=== PATIENT | male | born 1940 | race African-American/Black ===

== ENCOUNTER 2018-09-10 21:05 | Inpatient (IN) | payer OTHER ==
[~2018-09-10] VITALS: Ht 188 cm; Wt 61.3 kg
[2018-09-10] MEDS ORDERED: COREG6.25 MG PO (22:27)
[2018-09-10] MEDS ORDERED: ZANAFLEX2 MG PO (22:30)
[2018-09-10] MEDS ORDERED: ZANAFLEX4 MG PO (22:31)
[2018-09-10] MEDS ORDERED: KLOR-CON 1010 MEQ PO (22:34)
[2018-09-10] MEDS ORDERED: CELEBREX 200 M200 M1 PO (22:37)
[2018-09-10] MEDS ORDERED: NAPROSYN500 MG PO (22:39)
[2018-09-10] MEDS ORDERED: FINASTERIDE5 MG PO (22:40)
[2018-09-10] MEDS ORDERED: FLOMAX0.4 MG PO (22:41)
[2018-09-10] MEDS ORDERED: AMLODIPINE BESY10 MG PO (22:43)
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
[2018-09-11 02:00] VITALS: BP 153/89
--- NOTE | 2018-09-11 03:02 | NUR ---
PT CALLED OUT FOR HELP AT 0220. HE WAS SITTING ON SIDE OF HIS BED AND STATES HE HAD VOIDED URINE AND IT HAD GOTTEN ON HIS UNDERPAD AND SHEETS. RESIDENT STATES HE COULDN'T GET TO URINAL THAT WAS BESIDE HIS BED IN TIME. PATIENT STOOD UP WHEN CHANGING SHEETS AND IS VERY UNSTEADY ON HIS FEET AND NOT BALANCED. HE GETS AROUND BY GRIPPING FURNITURE AND PAZ. WHEN ASKED IF HE HAD PAIN HE STATED HIS LOWER LEFT BACK HURT AND WAS A 10/10 ON THE PAIN SCALE. HE RESIDENT WAS CLEANED UP AND NEW SHEETS PUT ON BED. RESIDENT ASKED FOR HIS PHONE TO CALL HIS SON. I LET HIM KNOW THAT IT WAS WITH SECURITY IN THE SAFE. LET HIM KNOW WE HAVE PHONES AVAILABLE FOR HIM TO MAKE A CALL BUT THAT IT IS 0233 IN THE MORNING AND WOULD HAVE TO WAIT TILL A MORE REASONABLE TIME. HE STATES THAT IS FINE AND AGAIN ASKED IF HIS SON KNOWS THAT HE IS HERE. LET HIM KNOW AGAIN THAT [facility] HAD LET HIS SON KNOW AND HE CAN CALL LATER IN DAY. HE WAS OK WITH THIS. PATIENT STATES "I'M HUNGRY! IS THERE ANY FOOD AROUND HERE?" HE STATES IT HAD BEEN SEVERAL HOURS SINCE HE LAST ATE. GIULIANA CERVANTES PROVIDED A SANDWICH, CHIPS AND DRINK FOR PATIENT. PATIENT COOPERATIVE. PATIENT ATE AND PAIN MED OF CELEBREX GIVEN TO PATIENT ORDERED FOR PRN. PATIENT ATE 100% OF FOOD.
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
--- NOTE | 2018-09-11 04:25 | NUR ---
Patient has been restless, mumbling, defensive with nursing staff. Patient provided Seroquel 50mg PO. Patient now reports back pain 5/10 and that the pain has improved. Patient asked to notify nurse if pain worsens to receive available Tylenol 3 PRN. Patient also informed that nurse will check on him to monitor pain. Patient pacing the hill and room at times. Patient is grateful to receive medication and reports that he doesn't mean to be rude or disrespectful to nursing staff. Laying in bed at this time.
[2018-09-11 08:00] VITALS: BP 141/95
--- NOTE | 2018-09-11 11:29 | NUR ---
SW and pt met at length. 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 He reports that his son is the Staff Air Defense Officer of a [employer] of [employer] on . and believes he might be angry at him but expects him to help, but is adament about making his own decisions. This has not been verified and it is unclear if this pt is very confused. Pt reports that he has a truck, clothes and paperwork that needs to be put into storage and he thinks he can move into a senior housing complex called " [facility]". He states he is willing to move, and struggles with back pain and arthritis. Pt is pleasant and gets frustrated when he feels disrespected or ignored. Pt was easily redirected by this SW.
[2018-09-11 12:24] VITALS: BP 153/89
--- NOTE | 2018-09-11 12:33 | NUR ---
ASSUMED CARE AT 0700 THIS MORNING. PT. LYING IN BED. WHEN TALKING TO HIM, HE IS IRRITABLE, ANGRY. HE CONTINUALLY C/O LOWER BACK PAIN. CELECOXIB GIVEN AT 0900, TYLENOL #3 GIVEN AT 1126. HE WAS OFFERED PLAIN TYLENOL, BUT HE REFUSED IT STATING HE WANTS TYLENOL #3. WHEN HE IS UP AND AMBULATING, HE USES A WALKER. HE IS AMBULATING WITHOUT PROBLEMS WITH ONLY HIS WALKER, BUT WILL C/O THE WHOLE WAY: "I CAN'T WALK WELL YOU KNOW". WANTED LUNCH SERVED IN HIS ROOM, BUT STAFF DENIED THIS REQUEST. HE WAS UPSET WITH THIS. HE SPENDS VERY LITTLE TIME ON THE UNIT. HE C/O HE NEED ADHESIVE ON HIS DENTURES. WAS UPSET THAT THIS RN WAS NOT DOING IT THE WAY HE WANTED IT. HAS NOT OFFERED TO THROW THE WALKER OR THROW ANYTHING AT ANYBODY UP TO THIS TIME.
--- NOTE | 2018-09-11 16:19 | NUR ---
MARIANN spoke with pt's son Ward Wright [phone]. He was able to confirm his father's social HX. He reported a 3 month stay at [facility] about 8 years ago and he was recomended LTC at that point but he refused. Pt was later discharged to his current home. This lasted for 5 years and the last 3 years he has " given everyone fits". Pt's son reports that his dad cannot make decision for safety or manage his ADL's . He has refused to let his son be his DPOA. Pt is currently pending a possible eviction from his apartment on [address] [address] on September 30. There are no further housing plans. Pt's son feels like his father will reject any d/c plans that include LTC, but is prepared to help as needed. MARIANN provided him with the weekday MARIANN name and phone number.
[2018-09-11 19:35] VITALS: BP 121/83
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
--- NOTE | 2018-09-12 00:35 | NUR ---
Order placed by Dr. Singh for a UA to be completed. Due to agitation, UA was not able to be collected. Patient had a UA completed at [facility] on the [address] on 09/10/18. Results are in the chart and UA negative for infection. CYNDEE Cabello notified. Order obtained to d/c UA order.
--- NOTE | 2018-09-12 01:34 | NUR ---
Patient woke up and approached the nurses station. Patient pleasant and cooperative. Patient asked if he could have his medication now and that he will take whatever the doctor thinks he needs. Prescribed medications reviewed. Due to refusal of HS Haldol, patient provided PRN Haldol dose. Patient assessed for pain. Patient reported pain rated 7/10 to his back. Patient also provided Tylenol #3. Patient apologetic for behaviors earlier in the night. Patient stated that he never acts like that and he is sorry. Patient reports that he is having trouble sleeping and would like soap and towels to take a shower. Patient provided with supplies and is showering at this time.
--- NOTE | 2018-09-12 04:22 | NUR ---
Patient has been restless since he has been awake, approximately 0115. Patient has become more agitated, irritable, intrusive, demanding over the last hour. Patient provided snacks and fluids. Patient offered to sit in living room and watch TV. When he becomes upset, he starts to briskly walk toward staff, occasionally leaving walker, unsteady gait and balance. Patient is high fall risk. With him being agitated, it is difficult to re-direct patient to slow down and grab his walker. Patient reported pain and requested "anything" to assist with pain management. Patient offered PRN Naproxen or PRN Tylenol. Educated patient that he had already received his PRN Tylenol #3. Patient requested to take PRN Naproxen, then came to the nurses station to say he wanted Tylenol instead. Tylenol was taken to patient. Patient then refused to take Tylenol. Patient sitting on his bed. No s/s of distress observed. Once patient refused the Tylenol, he became beligerent. He started calling nurse "nothing but a white woman bitch". He continued to yell and curse. Slamming his walker into the ground. No act of physical aggression at the time. Patient kept coming to the nurses station, yelling at nurse and disrupting the milieu, waking other patients. Security notified. Security spoke with patient. Patient was unable to calm down. Nurse administered Geodon 10mg IM in the right deltoid. Patient walked to his room with application security engineer. Patient cussing racial and inappropriate comments on the way. Patient sitting on his bed at this time with lights dimmed.
--- NOTE | 2018-09-12 06:19 | NUR ---
Patient has been resting in bed since approximately 0430. Lab arrived to collect blood from patient approximately 0530. Patient originally declined to have blood drawn but then allowed to be stuck once. Lab was not able to obtain blood and requested to attempt one more time. Patient declined. He stated that he was tired and wanted to go to sleep. Patient stated that he is tired of being arrested, in hand cuffs, tied down and people sticking needles in him. Patient has not been in any type of restraint since admission to this unit. Once lab left unit, patient has been resting quietly in bed. Patient has slept a total of 3.6 hours this shift.
--- NOTE | 2018-09-12 08:45 | NUR ---
ASSUMED CARE AT 0700 THIS MORNING. PT. B/P 172/123 LYING AND 168/120 SITTING. PT. INFORMED OF HIGH B/P BUT WOULD NOT TAKE ANY B/P MEDICATIONS. HE WOULD ONLY TAKE TYLENOL #3 AND CELEBREX (HE TOOK ONE PILL ONLY). HE REMAINS ANGRY, UPSET. HE STATED HE IS WAITING UNTIL THE DR. ARRIVES BEFORE HE WILL TAKE ANY MEDICATIONS. HE CONTINUES TO INSIST THAT THIS RN ORDERED HIS MEDICATIONS AND THAT THE MEDS WERE UNNECESSARY SINCE I OERDERED THEM. HE CONTINUES TO BE SECLUSIVE IN HIS ROOM, EXCEPT FOR MEALS. HE CAME OUT FOR GROUP AT STAFF INSISTANCE. HE IS EATING WELL.
[2018-09-12 10:40] VITALS: BP 141/95
[2018-09-12 13:13] LABS: HEMATOCRIT 40.6 % (42.0-52.0); HEMOGLOBIN 13.4 gm/dL (14.0-18.0); MCH 29.1 pg (26.0-34.0); MCV 88.1 fL (80.0-100.0); RBC 4.61 mil/uL (4.50-6.00); RDW 14.3 % (10.5-14.5); WBC 6.5 thou/uL (4.0-11.0)
[2018-09-12 13:28] LABS: CALCIUM 10.1 mg/dL (8.5-10.1); POTASSIUM 3.9 mmol/L (3.5-5.1)
--- NOTE | 2018-09-12 14:21 | NUR ---
SW verified that pt has approached [facility] [phone]. Sw called but they are closed on Sundays. SW left an email for the weekeday SW with this information per pt request.
--- NOTE | 2018-09-12 16:14 | NUR ---
SW witnessed this pt recieve his IM and struggle with staff and security. When it seemed therapeutic this life insurance underwriter entered his room and asked permission to sit with him. He said " of course sweetheart". At this point there was 1 officer in his room. This life insurance underwriter provided empathy, redirection and validation. This life insurance underwriter offered him water, which he would only take a new cup of water from the bathroom that was done by this life insurance underwriter. Within minutes he described the effects of the shot, and could hear himself slurring. This life insurance underwriter educated him that the IM would help him take a nap, all the while he was easily redirected , quiet spoken and gentle. this life insurance underwriter encouraged him to lay down and let himself be tucked in. He accepted this and said yes when this life insurance underwriter offered to turn off the light and keep the door ajar. This life insurance underwriter left his room with security.
[2018-09-12 17:00] VITALS: BP 139/93
--- NOTE | 2018-09-12 21:52 | NUR ---
PATIENT REQUESTED PRN PAIN MEDICATION R/T BACK PAIN AT APPROXIMATELLY 2145 PRN TYLENOL 3 GIVEN ORDERED.
--- NOTE | 2018-09-12 22:18 | NUR ---
NURSES NOTES - PATIENT IS ALERT AND ORIENTED X3, HE HAS BEEN COOPERATIVE WITH THIS NURSE FOLLOW THIS NURSES DIRECTIONS AND ENCOURAGEMENT. HE APPEARS TO BE PREOCCUPIED WITH DISCHARGE AND HAS ASKED SEVERAL TIMES WHO ARRANGES HIS TRANSPORTATION AND WHO DECIDES WHEN HE IS DISCHARGING. THIS NURSE ENCOURAGED PATIENT TO ASK SOCIAL WORK STAFF TOMORROW AFTER TX TEAM AND MD. HE WAS UNDERSTANDING. HE ALSO APPEARS PREOCCUPIED WITH WHERE HIS BELONGINGS ARE AND IN THEY ARE SAFE, THIS NURSE REASSURED PATIENT THEY WERE SAFE AND LOCKED UP. HE HAS HAD NEGATIVE INTERACTIONS WITH ONE CERTAIN PEER THAT REQUIRED REDIRECTION FROM STAFF. STAFF INTERVENES PRN. HE WAS MEDICATION COMPLIANT THIS EVENING, BUT QUESTIONS HALDOL, THIS NURSE ALSO EDUCATED PATIENT R/T IMPORTANCE OF MED REGIMEN AND ADHERING TO IT. HE AGREED HE WOULD WHILE IN THE HOSPITAL. HE AMBULATES WITH WALKER, BUT THIS NURSE HAS WITNESSED HIM AMBULATING WITH NO ASSISTIVE DEVICE. HE DOES NOT APPEAR TO BE IN MEDICAL DISTRESS, HE DID C/O BACK PAIN AT 8/10 PRN TYLENOL 3 GIVEN WITH NO PROBLEMS. WILL CONTINUE TO MONITOR AND MAINTAIN ALL PRECAUTIONS FOR SAFETY.
--- NOTE | 2018-09-13 06:28 | NUR ---
PATIENT SLEPT FOR 2 HOURS PER MEDIA TRAFFIC MANAGER
[2018-09-13 07:55] VITALS: BP 154/88
--- NOTE | 2018-09-13 10:32 | NUR ---
Assess due to low BMI 17.3. Admit to [facility] with schizophrenia. On regular diet and states "I'll eat whatevery you bring." Very polite at time of visit. Slender gentleman but does not appear malnourished. Low nutrition risk
--- NOTE | 2018-09-13 10:53 | NUR ---
MARIANN left a voicemail for Ms. Stephens from [facility]. MARIANN provided contact information, and requested a call back.
--- NOTE | 2018-09-13 11:31 | NUR ---
PATIENT UP IN HIS ROOM AT 0715. PLEASANT TO THIS NURSE WHEN FIRST INTORDUCING SELF TO HIM ON PATIENT SHIFT ROUNDS. HOWEVER, BECOME RUDE AND UNCOOPERATIVE N NURSE ATTEMPTED TO PASS A.M. MEDSS, REFUSED TO TAKE. PLAN OF CARE DURING TREATMENT DISCUSSED. POSSIBILITY OF PATIENT BEING DISCHARGED TOMORROW, RELATED TO PATIENT'S NONCOMPLIANCE WITH POC.
--- NOTE | 2018-09-13 12:40 | NUR ---
David was speaking with the BITUMINOUS PAVING MACHINE OPERATOR, I heard him tell her that 'he is two people, one a male, and one a female. He was asking for his personal belonings. I referred him to his nurse. He thinks he is discharging today. When the nurse informed David, that he was not discharging. He started to cuss and hit his fist into his hand.
--- NOTE | 2018-09-13 16:00 | NUR ---
PATIENT BECAME SEVERELY AGITATED AND COMBATIVE WITH STAFF, WAS GIVEN HIS 1400 THORAZINE. HOWEVER, IT WAS NECESSARY TO ADMINISTER THORAZINE IM 25 MG AT 1430, ASSISTANCE OF FOUR STAFF. PATIENT IS AT THIS TIME, LYING QUIETLY IN BED IN SIDEWAYS IN THE BED. APPEARS TO BE SLEEPING.
--- NOTE | 2018-09-13 16:28 | NUR ---
PATIENT CONTINUED TO TALK TO NURSES, AND PHYSICIAN, ABOUT HIS DESIRE TO BE DISCHARGED TODAY. INSISTED TO STAFF AND DR. HYDE THAT HE WAS TOLD THAT HE WOULD BE DISCHARGED TODAY. THIS NURSE HAD PREVIOUS CONVERSATIONS WITH PATIENT TO THAT EFFECT; HOWEVER, PATIENT UNWILLING TO ACCEPT THAT HE WAS NOT GOING HOME TODAY. PATIENT DEMONSTRATED EXTREME VERBAL AGGREESSION WITH DR. HYDE; WAS TOLD THAT HE WOULD BE STAYING A COUPLE OF DAYS FOR MEDICATION ADJUSTMENT.
--- NOTE | 2018-09-13 16:51 | NUR ---
MARY left a voicemail to Ms. Stephens from [facility]. MARY provided contact information. Mary attempted twice to return Ms. Stephens. MARY will follow-up on tomorrow.
[2018-09-13 20:00] VITALS: BP 153/97
--- NOTE | 2018-09-13 23:30 | NUR ---
PT AMBULATING STEADY WITH WALKER. PT VERBALIZED FRUSTRATION ABOUT WANTING TO GO HOME. PT REFUSED HS HALDOL STATING IT MAKES HIM DIZZY. PT VERBALIZED BEING UPSET THAT HIS ARM BAND HAS AN F FOR FEMALE BUT REFUSED TO HAVE CHANGED. PT VERBALIZED ALSO UPSET THAT HIS DOOR MUST REMAIN UNLOCKED FOR ROUNDS. PT AT 2330 CAME TO DAY ROOM TO STATING HE CAN NOT SLEEP AND IS LAUGHING AT TV PROGRAM AND TALKING WTIH AIDES. NO C/O PAIN.
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
--- NOTE | 2018-09-14 02:22 | NUR ---
Pt awakened at this time ambulated in hill and returned to his room.
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
--- NOTE | 2018-09-14 07:30 | NUR ---
PT IS IN DINNING ROOM. PT SHOWING NURSE THE YELLOW PAPER WITH BELONGINGS ON THEM. PT WANTING TO GO HOME TODAY. SON HAS NOT RETURNED PHONE CALL PER . PT ALLOWED NURSE TO TAKE ASSESSMENT. PT USING WALKER TO AMBULATE.
[2018-09-14 07:49] VITALS: BP 148/109
--- NOTE | 2018-09-14 10:08 | NUR ---
ADM TYLENOL 650MG 2 TABS PO FOR PAIN TO BACK OF 10 ON 1-10 SCALE. PT REFUSED IBUPROPHEN. PT TOOK CELEBREX FROM HOME MEDS. PT REFUSED HEART MEDICATION STATED HE DOENS'T HAVE A HEART ISSUE AND TO CHECK THE OTHER HOSPITAL RECORDS. PT UP AGGITATED WANTING TO SEE AND HAVE HIS CELL PHONE. PT STATED THAT WE ARE DOING HIM WRONT. THIS MEDICAL POLICY SPECIALIST GAVE PT WATER FROM [employer] AND THERE WAS BUBBLES IN CUP, PT POURED OUT WATER AND GOT FROM TAP INSTEAD.
--- NOTE | 2018-09-14 12:06 | NUR ---
PT FINISHED EATING. PT STILL WANTING TO GO HOME AND TALK TO
--- NOTE | 2018-09-14 13:36 | NUR ---
PT LEFT UNIT AMA. AUTO PARTS DELIVERY DRIVER WAS HERE TO TALK TO HIM PRIOR TO LEAVING ABOUT GOING BACK TO HIS APT. PT RECIEVED HOME MEDS FROM PHARMACY AND BAG FROM SECURITY.
--- NOTE | 2018-09-14 13:37 | NUR ---
MARIANN met with the pt concerning him going AMA. SW explained the risk of going AMA that coulf affect his medical, and mental health. SW mention that when pt go AMA doctors refuse to administer prescription, which could have negative results, and side effects. Pt read the AMA document. SW asked if he had any questions or concerns. Pt mention he will be alright, and if he has a medical problem, he will see another doctor. MARIANN, and FELICIA Pagan witness pt signature. MARIANN will provide a cab voucher to transport pt to his final destination.
[2018-09-14 14:00] VITALS: BP 148/109
--- NOTE | 2018-09-14 14:01 | NUR ---
Patient Name: KATYA SHAW Admission Date: 09/10/18 DISCHARGE PLAN: Pt will be d/c home. Care Assessment: Pt was assessed by Dr. Wasserman due to his psychosis. Level II Assessment: None Transportation: Pt will be transported by [employer]. Special Instructions/Notes: Pt will d/c AMA, and live in his apartment. SW explained the risk involved concerning AMA, and health. DISCHARGE TO FACILITY: Home Facility: Phone: Fax: Address: [address] [place] [id number] Contact Name: Phone: PCP: LILIA Psychiatrist: [facility]
--- NOTE | 2018-09-14 14:12 | NUR ---
SW called in left a voicemail for the pt son. SW mention that pt has went AMA. SW provided contact informatio, and asked if he would return call if he had any questions or concerns.
--- NOTE | 2018-09-16 11:58 | D ---
[facility] [place] [address] DISCHARGE SUMMARY Name: KATYA SHAW Room #: 528B-B DIS IN M.R.#: [id number] Admission: 09/10/18 ������������������ Attend Phys: Michael Wasserman DO Discharge: 09/14/18 ������������������ Date of : 40 Report #: [id number] THIS REPORT FOR: //name// CC: Michael Wasserman FAM physician/PCP DATE OF SERVICE: 09/14/2018 ATTENDING PHYSICIAN: Michael Wasserman DO FOREST ECOLOGY PROFESSOR AT THE TIME OF DISCHARGE: Erik Singh MD. Please note, this is a discharge against medical advice. DISCHARGE DIET: Regular. ACTIVITY LEVEL: As tolerated. DISCHARGE MEDICATIONS: Mainly continuation of medications prior to admission. Coreg 6.25 mg p.o. q. 12 hours Naproxen 500 mg p.o. b.i.d., finasteride 5 mg p.o. daily for BPH, amlodipine 10 mg p.o. daily for hypertension. He is advised not to take tizanidine and potassium chloride. The patient was urged to get an intake at a [facility] such [facility] and establish primary care due to his AMA discharge. Obviously appointments were not able to be setup. LABORATORY DATA THIS ADMISSION: CBC: H and H 13.4 and 40.6, white count 6.5, platelets 268. Electrolytes within normal limits except anion gap 6, BUN 27, glucose 107. No imaging this admission. REASON FOR ADMISSION: As follows: A 78-year-old black male, brought in by [employer] officers due to calling them making bizarre complaints, appearing paranoid. HOSPITAL COURSE: The patient was admitted to the Geriatric Psych Unit. He was started on Haldol 5 mg p.o. daily over the weekend, which he refused. I increase it to 5 mg b.i.d. yesterday, which he refused. The patient did submit written request for discharge against medical advice yesterday. Today, he is still is noncompliant with antipsychotic medication. I will like to go ahead and discharge him against medical advice. Ms. Gutierrez from [facility] presented on the unit to see to the patient's departure plans. The patient may well have mild dementia. He was quite psychotic, score of 13/30, but that SLUMS score would be expected to improve with appropriate treatment of his decompensated psychosis which patient is not permitting [address] [address] DISCHARGE SUMMARY Name: KATYA SHAW Room #: 528B-B DIS IN M.R.#: [id number] Admission: 09/10/18 ������������������ Attend Phys: Michael Wasserman, Discharge: 09/14/18 ������������������ Date of : 40 Report #: [id number] medicationr efusal and desire to return home and "then come back". PHYSICAL EXAMINATION: VITAL SIGNS: On day of discharge is as follows: Temperature 37.2, pulse 87, respirations 16, BP 148/109. The patient is aware he has uncontrolled hypertension. MUSCULOSKELETAL: Normal gait and station with the exception of using a walker intermittently. MENTAL STATUS EXAMINATION: This is a well-developed, black male, but disheveled-appearing nearly stated age. Attention limited. Concentration limited. Speech increased volume rate. Thought process is linear and goal directed. Thought content, discharged, coming back after he took care of his affairs. Some psychomotor agitation, no psychomotor retardation. Denied auditory, visual, or tactile hallucinations. Denies suicidal intent or plan. Denied hopelessness or helplessness. Denied homicidal intent or plan. Memory formally tested with impairment in recent recall. Insight impaired. Judgment limited. Fund of knowledge below average. Prognosis for this patient is guarded to poor due to leaving Against Medical Advice, likely having a major neurocognitive disorder, poor social support. I did leave messages for his son, Ward and office of Dr. Suarez, which were not returned at the time of this dictation. ��������������������������������������������� <ELECTRONICALLY SIGNED> ���������������������������������������� By: Michael Wasserman DO ��������������������������������������������� 09/16/18 1158 [id number] Michael Wasserman DO /nt
== END 2018-09-14 14:33 | disposition left against medical advice (07) | DRG 885 ==
LOC: SBH → EDSEX 21:35 → SBH 09-14 14:33
PROVIDERS: Internal Medicine; ADMIT Psychiatry & Neurology Psychiatry
DX: F20.9 Schizophrenia, unspecified (principal); I10 Essential (primary) hypertension; M06.9 Rheumatoid arthritis, unspecified; N40.0 Benign prostatic hyperplasia without lower urinary tract symptoms; G20 Parkinson's disease; E78.5 Hyperlipidemia, unspecified; Z53.21 Procedure and treatment not carried out due to patient leaving prior to being seen by health care provider; Z79.899 Other long term (current) drug therapy; Z88.0 Allergy status to penicillin
CPT/HCPCS: 10880

== ENCOUNTER 2018-10-25 09:51 | Inpatient (IN) | payer OTHER ==
[~2018-10-25] VITALS: Ht 185.4 cm; Wt 69.1 kg
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
[2018-10-25 09:51] VITALS: BP 166/106
[~2018-10-25 09:51] MED LIST: AMLODIPINE BESY10 MG PO; CELEBREX 200 M200 M1 PO; COREG6.25 MG PO; FINASTERIDE5 MG PO; FLOMAX0.4 MG PO; KLOR-CON 1010 MEQ PO; NAPROSYN500 MG PO; ZANAFLEX2 MG PO; ZANAFLEX4 MG PO
[2018-10-25 11:17] LABS: ABSOLUTE NEUTROPHILS 11.9 thou/uL (1.4-8.2); BASOPHILS 0.2 % (0.0-2.0); HEMATOCRIT 37.1 % (42.0-52.0); LYMPHOCYTES 4.9 % (24.0-44.0); MCH 28.8 pg (26.0-34.0); MCHC 32.4 g/dL (28.0-37.0); MCV 88.7 fL (80.0-100.0); MONOCYTES 5.2 % (1.0-8.0); PLATELET COUNT 210 thou/uL (150-400); POLYS 88.7 % (36.0-66.0); RBC 4.18 mil/uL (4.50-6.00); RDW 13.8 % (10.5-14.5); WBC 13.4 thou/uL (4.0-11.0)
[2018-10-25 11:41] LABS: ALBUMIN 3.6 g/dL (3.4-5.0); ANION GAP 8 mmol/L (7-16); BUN 26 mg/dL (7-18); CALCIUM 9.4 mg/dL (8.5-10.1); CHLORIDE 105 mmol/L (98-107); CO2 29 mmol/L (21-32); CREATININE 0.9 mg/dL (0.7-1.3); GLUCOSE 120 mg/dL (74-106); SALICYLATE < 2.8 mg/dL (2.8-20.0); SGOT 26 U/L (15-37); SGPT 26 U/L (30-65); SODIUM 142 mmol/L (136-145); TOTAL BILIRUBIN 0.5 mg/dL (<0.1-1.0); TOTAL PROTEIN 7.3 g/dL (6.4-8.2)
[2018-10-25 11:46] LABS: POTASSIUM 2.8 mmol/L (3.5-5.1)
[2018-10-25 13:57] LABS: URINE BILIRUBIN NEGATIVE (Negative); URINE BLOOD 1+ (Negative); URINE CLARITY CLEAR; URINE COLOR YELLOW; URINE GLUCOSE-RANDOM* NEGATIVE (Negative); URINE KETONES TRACE (Negative); URINE LEUKOCYTES-REFLEX NEGATIVE (Negative); URINE NITRITE-REFLEX NEGATIVE (Negative); URINE PROTEIN (DIPSTICK) 2+ (Negative); URINE SPECIFIC GRAVITY 1.025 (1.005-1.035)
[2018-10-25 14:06] LABS: AMP/METHAMP Negative (Negative); BARBITURATES Negative (Negative); BENZODIAZEPINES Negative (Negative); COCAINE Negative (Negative); METHADONE Negative (Negative); OPIATES Negative (Negative); PCP Negative (Negative)
[2018-10-25 14:08] LABS: BACTERIA-REFLEX None Seen /HPF (None Seen); CASTS None Seen /LPF (None Seen); CRYSTALS None Seen /LPF (None Seen); SQUAMOUS 0-3 Few /LPF (0-3); URINE RBC 3-10 Few /HPF (0-2); URINE WBC-REFLEX 6-15 Few /HPF (0-5)
[2018-10-25 15:53] VITALS: BP 120/68
--- NOTE | 2018-10-25 17:13 | NUR ---
MARIANN completed the 96 hour hold. MARIANN spoke with the notary, and he will be here at 5:30pm to notarized the document. Nurse Nicole will fax the 96 hour hold to the [email or web address]] court. MARIANN will follow-up with the pt patent prosecution attorney sarah Wallace on tomorrow, October 26, 2018.
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
[2018-10-25 20:09] VITALS: BP 159/95
[2018-10-25 23:00] VITALS: BP 159/95
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
[2018-10-26 09:02] VITALS: BP 159/95
--- NOTE | 2018-10-26 11:03 | NUR ---
MARIANN spoke with Isiah welch pt divorce attorney. MARIANN faxed the 96 hour hold to his office. MARIANN reccomend the divorce attorney to follow-up if he has any questions.
--- NOTE | 2018-10-26 12:56 | NUR ---
Nutrition: pt admitted with unspecified psychosis, hypokalemia and seen due to low BMI. Chart reviewed. Low body weight but no recent change seen, BMI 18.5. Did report used to weigh 180# several years ago. Good appetite w/ 100% intake of meals. Agrees to Ensure BID. Thin appearance but do not feel pt meets malnutrition criteria. Low nutrition risk.
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
--- NOTE | 2018-10-26 14:07 | NUR ---
PT. C/O BACK PAIN. HE WAS INFORMED WE HAVE TYLENOL OR IBUPROFEN. HE SAID, "IS IT TYLENOL 3?" WHEN I REPLIED THAT IT WAS JUST TYLENOL HE REPLIED, "NO TARA". I TOLD HIM IF HE CHANGES HIS MIND TO LET US KNOW.
[2018-10-26 19:37] VITALS: BP 153/97
--- NOTE | 2018-10-27 00:11 | NUR ---
PT ASKED ANOTHER NURSE TO 'LOOK AT HIS BUTT BECAUSE THERES SOMETHING ON IT' THIS NURSE ACCOMPANIED THE OTHER RN INTO PATIENTS ROOM, ON PATIENTS LEFT BUTTOCKS IT APPEARS THAT THERE IS A DIME SHAPED SCAR THAT IS RAISED. PATIENT INSISTS IT IS SOMETHING DIFFERENT. CREAM WAS APPLIED, AND PT SATISFIED. ENCOURAGED TO CHANGE POSITIONS IN BED FREQUENTLY.
--- NOTE | 2018-10-27 01:15 | NUR ---
NURSES NOTES - KATYA IS ALERT AND ORIENTED X3, HE EXPRESSES A LABILE MOOD WITHIN THE MILIEU. AT TIMES HE CAN BE IN HIS ROOM YELLING TO HIMSELF, OR BEING LOUSY AND MANIPULATING THE MILIEU IN POSSIBLY AN ATTEMPT TO GAIN INTERACTION FROM OTHER PATIENTS AND STAFF. HE REQUIRES FREQUENT REDIRECTION, WHICH AT TIMES HE RESPONDS POOR TOO. DR. HYDE WAS ROUNDING ON THE UNIT AND PT WAS UPSET WITH PHYSICIAN AND BEGAN YELLING AT HIS USING PROFANITIES, THIS NURSE REDIRECTED PATIENT AWAY FROM SITUATION. PHYSICIAN ALSO PUT IN ORDERS FOR PATIENT TO NOT USE WALKER R/T IMPROPER USE AND DANGEROUS BX WITH IT. PATIENT BECAME UPSET THIS NURSE CONDUCTED ONE TO ONE WITH PATIENT THAT CALMED PATIENT DOWN. PT CAN WALK WITH A STEADY GAIT WITH NO WALKER. HE CURRENTLY DENIES SI HI WELL ANY HALLUCINATIONS. HE CONTINUES TO HAVE ANGER OUTBURSTS. HE DENIES MEDICAL CONCERNS AT THIS TIME AND DOES NOT APPEAR TO BE IN DISTRESS. NURSING WILL MAINTAIN ALL PRECAUTIONS TO ENSURE SAFETY AT ALL TIMES.
--- NOTE | 2018-10-27 06:06 | NUR ---
PT SLEPT 8.6 HOURS PER SCOREKEEPER
[2018-10-27 07:00] VITALS: BP 151/95
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
--- NOTE | 2018-10-27 14:55 | NUR ---
Isiah roper came in visit with his client on today. Isiah assessed the pt to make sure his rights was given, and understood why he was in the hospital. Isiah provided his contact information, and mention that he would follow-up with the pt.
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
[2018-10-27 19:29] VITALS: BP 126/88
--- NOTE | 2018-10-27 23:05 | NUR ---
PT SLEEPING ON MATTRESS IN ROOM UPON ARRIVAL TO SHIFT. PT AWAKENED AND ASSESSED. PT CHEERFUL AND PLESANT. PT COMPLIANT WITH HS MEDS AND SNACK. PT REQUESTED ASSISTANCE WITH ADL CARE HE WAS INCONTINENT. PT ASKED FOR ASSISTANCE STANDING FROM MATTRESS ON FLOOR TO BED. PT DID START YELLING AND THREATENING MALE TECH WHEN TECH WAS ASKING PT TO COMPLETE TASKS INDEPENDENTLY. PT WAS ABLE TO VERBALLY DE ESCALATED BY NURSE. PT RESTING IN BED WITH ALARM.
--- NOTE | 2018-10-28 09:29 | NUR ---
0700: Report from noc shift, care assumed. [id number]: Pt resting in bed, laying lt lateral, bed alarm on, bedrails up x4 for safety. Pt declined staff assist to transfer from bed to w/c, declined a.m. meal, demanding to be left alone. Elevated B/P noted, pt resistant to take a.m. meds, assisted with educating pt by Rosey Weber, Natural History Collections Curator, pt drank 1 vanilla ensure, took meds whole persistant encourage to pt.
[2018-10-28 19:55] VITALS: BP 94/59
--- NOTE | 2018-10-28 21:30 | NUR ---
PTS ROOM, CLOTHES ON FLOOR DIRTY DIAPERS ON FLOOR. PT IN W/C PROPELLING SELF IN HALLWAY, IN DAYTOOM REQUESTED SNACK X 2. PT COMPLIANT WTIH MEDS. PT THANKING FEMALE STAFF, BUT CURSING AND YELLING AT MALE PCT. PT TALKING TO HIMSLEF CALMLY IN DAYROOM AND IN HIS ROOM. PT ACCEPTED ASSISTANCE WITH ADL CARES THIS EVENING. PT STATED HE WANTS TO WEAR TWO PAIRS OF BRIEFS AND TWO PAIRS OF SOCKS.
--- NOTE | 2018-10-29 01:12 | NUR ---
PT HAD SEVERAL SNACKS THIS ARMOND. PT ARGUING WITH MALE TECH, CURSING YELLING, CALLED HIM A FAGGOT. PT REDIRECTED TO NO LONGER HAVE CONVERSATIONS WITH PCT, THAT HE COULD GO TO HIS ROOM OR DAYROOM. PT WENT TO HIS ROOM. PT STATED HE USED TO USE IV DRUGS AND HAVE 10 HOOKERS AND THAT IS HOW HE ENDED UP THE WAY HE IS.
--- NOTE | 2018-10-29 04:00 | NUR ---
PT HAS BSC ON BED, W/C ON FLOOR NEXT TO BSC. PT IS LAYING ON THE FLOOR. PT HAS BEEN AWAKE ALL NIGHT AND IS TALKING TO HIMELF QUIETLY.
[2018-10-29 05:40] LABS: HEMATOCRIT 36.7 % (42.0-52.0); HEMOGLOBIN 11.9 gm/dL (14.0-18.0); MCH 28.7 pg (26.0-34.0); MCHC 32.4 g/dL (28.0-37.0); MCV 88.6 fL (80.0-100.0); RBC 4.15 mil/uL (4.50-6.00); RDW 13.8 % (10.5-14.5); WBC 10.5 thou/uL (4.0-11.0)
[2018-10-29 05:50] LABS: CALCIUM 10.1 mg/dL (8.5-10.1); CREATININE 1.4 mg/dL (0.7-1.3); MAGNESIUM 2.2 mg/dL (1.8-2.4); POTASSIUM 3.6 mmol/L (3.5-5.1)
--- NOTE | 2018-10-29 06:19 | NUR ---
PT REFUSED AM ADL INCONTINENCE CARES. PT YELLING AND CURSING AT [employer] TECH, SAYING HE WAS PROTECTING HIS MAN SALAZAR. PT REFUSED TO LET NURSE ASSIST WITH ADL CARES. PT DID ALLOW MOUNTER FLUTES AND PICCOLOS TO DRAW BLOOD. PT TOOK PRN TYLENOL X 2 FOR BACK DISCOMFORT
[2018-10-29 10:03] VITALS: BP 152/98
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
[2018-10-29 19:35] VITALS: BP 138/97
--- NOTE | 2018-10-29 22:44 | NUR ---
ASSUMED CARE OF THE PT AT 1930. ALERT ET CONFUSED AT TIMES. HEART RATE REGULAR. LUNGS CLEAR BILATERALLY, RESP., EVEN, AND UNLABORED. +BS HEARD IN ALL 4 QUADRANTS. ABD SOFT ET NONTENDOR. WHEELING AROUND IN A WHEELCHAIR. ARGUMENTATIVE WITH STAFF AND OTHER PEERS. TOOK HIS MEDICATIONS WITHOUT ANY DIFFICULY. REMAINS ON 12 MINUTE CHECKS FOR THE PT'S SAFETY.
[2018-10-30 07:00] VITALS: BP 138/72
--- NOTE | 2018-10-30 10:39 | NUR ---
ATE BREAKFAST IN DINNING ROOM. VERY LOUD HOSTILE SPEECH, DID QUIET DOWN WITH DISTRACTION AND REDIRECTION. REFUSED AM MEDS DID REQUEST TYLENOL FOR BACK PAIN AND THEN LAYED DOWN IN ROOM.
--- NOTE | 2018-10-30 12:14 | NUR ---
1130: Refused weekly weight.
[2018-10-30 17:23] VITALS: BP 138/72
--- NOTE | 2018-10-30 18:27 | NUR ---
SPENT 2 HOURS IN QUIET ROOM AFTER IM THORAZINE. GOOD APPETITE FOR DINNER AND BEHAVIOR IMPROVED. PROPELLS SELF IN WHEELCHAIR WITH FEET. TYLENOL GIVEN FOR C/O BACK PAIN.
[2018-10-30 20:19] VITALS: BP 136/91
--- NOTE | 2018-10-31 00:10 | NUR ---
NURSES NOTE - THIS NURSE ASSUMED CARE AT 1900, HE HAS BEEN DISRUPTIVE THROUGH THE EVENING, RAISING HIS VOICE THROUGHOUT THE MILIEU, DEMANDING WITH STAFF AND OTHER PATIENTS. INTERACTIONS WITH OTHER PATIENTS ARE INAPPROPRIATE AT TIMES AND DISTURBS THE MILIEU. HE DISPLAYS BX OF ENTITLEMENT, AND MAINTAINS A TENSE AFFECT THROUGHOUT THE SHIFT. DURING ONE TO ONE WITH PATIENT HE REPORTS 'IM FINE.' HIS GOAL THROUGH THE EVENING WAS TO 'GET SOME DAMN COFFEE.' THIS OCCURED AT 1945 AND CONTINUES TO THIS TIME. MULTIPLE ATTEMPTS OF REDIRECTION HAVE FAILED. HE IS MEDICATION COMPLIANT THIS EVENING WITH PO THORAZINE, WHICH OBSERVED WITH NO EFFECT. HE DID NOT REPORT ANY MEDICAL CONCERNS WITH NO S/S OF DISTRESS. NURSING WILL MAINTAIN ALL PRECAUTIONS TO ENSURE SAFETY AT ALL TIMES.
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
[2018-10-31 05:59] LABS: CALCIUM 10.1 mg/dL (8.5-10.1); CREATININE 0.9 mg/dL (0.7-1.3); POTASSIUM 4.1 mmol/L (3.5-5.1)
--- NOTE | 2018-10-31 06:34 | NUR ---
PATIENT SLEPT 2 HOURS AND 48 MINUTES PER TILE LAYER SUPERVISOR.
[2018-10-31 09:37] VITALS: BP 145/86
--- NOTE | 2018-10-31 15:22 | NUR ---
ON FLOOR IN ROOM AT 0730 STATES HE DID NOT FALL - PROCEEDED TO MOVE ON BACK DOWN THE ROBISON INCONTINENT OF URINE. GOT UP INTO W/C WITH MINIMAL ASSISTANCE. ATE BREAKFAST IN DINNING ROOM. REFUSED AM MEDS BUT TOOK TRAZADONE. OCCASIONALLY LOUD YELLING PROFANITIES AT NURSES AND OTHERS. ENCOURGED HIM TO RETURN TO ROOM IF HIS BEHAVOIR CONTINUES TO ESCALATE. WENT TO ROOM AND SLEPT FROM 1130 - 1500. AT LUNCH AT 1500 IN DINING ROOM. REFUSED 15OO TRAZADONE ORALLY SO I ADMINSTERED IM TRAZADONE. RESING IN ROOM AT THIS TIME.
--- NOTE | 2018-10-31 19:45 | EKG ---
[address] [place] [address] ELECTROCARDIOGRAM REPORT Name: KATYA SHAW Room #: 517-A ADM IN M.R.#: [id number] Admission: 10/25/18 Attend Phys: Michael Wasserman DO Discharge: Date of : 40 Report #: [id number] THIS REPORT FOR: //name// [facility] Test Date: 2018-10-27 Test Time: 11:22:08 Pat Name: KATYA SHAW Department: Room: [facility] A Gender: M Assistant Football Coach: Kary GARCIA : 1940 Requested By: Michael Wasserman Order Number: [id number] MD: John Pradhan Measurements Intervals [place] Rate: 109 P: 64 NM: 158 QRS: -51 QRSD: 88 T: 75 QT: 338 QTc: 456 Interpretive Statements Sinus tachycardia Probable left atrial enlargement Low voltage, extremity leads Consider inferior infarct Anteroseptal infarct, old No previous ECG available for comparison Electronically Signed On 10-31-2018 19:45:27 CDT by John Pradhan [email or web address] <ELECTRONICALLY SIGNED> By: John Pradhan MD 10/31/181944 112 112 John Pradhan MD /PEGGY
[2018-10-31 19:50] VITALS: BP 154/91
--- NOTE | 2018-11-01 00:54 | NUR ---
ASSUMED CARE OF THE PT AT 191 PM. THE PT WAS LYING ON THE FLOOR ON HIS MATTESS. ALERT ET ORIENTED X 2. GETS AROUND BY WALKING AND BY USING HIS WHEELCHAIR. REFUSED TO TAKE HIS HS MEDICATIONS, GAVE HIM A SHOT PER PHYSICIAN'S ORDERS. THE PT HAS BEEN UP AND ABOUT THE WHOLE UNIT. HEART RATE REGULAR. LUNGS CLEAR BILATERALLY. +BS HEARD IN ALL 4 QUADRANTS. ABD SOFT ET NONTENDOR.
[2018-11-01 07:00] VITALS: BP 146/106
--- NOTE | 2018-11-01 11:55 | NUR ---
Date of Admission: 10/25/18 Date of Activity Therapy Assessment: 10/28/18 Activity Goal: Increase social and communication skills and boundaries for communicating frustration Initial Goal: 1 Group activity/day Weekly progress towards goal: Did not achieve goals Group participation level: None Behaviors observed: Patient has not been behaviorally appropriate to participate in recreational groups. Patient is disruptive to the milieu. Plan: No change towards goal
--- NOTE | 2018-11-01 17:04 | NUR ---
MARIANN recieved a call from Alexi Stephens from the [facility]. Ms. Gutierrez called concerning the status of guardianship paperwork being filed. She also wanted to know the Pt's current behaviors. MARIANN informed Ms. Gutierrez a message for Hernandez Marino LMSW will be left for a phone call back concerning the status of the guardianship.
--- NOTE | 2018-11-01 19:51 | NUR ---
PATIENT ALERT AND ORIENTED AND COMBATIVE / CONFONTRATION WITH STAFF AND OTHER PATIENT THROUGHOUT DAY. ATTEMPTS TO RE-DIRECT AND CALM PATIENT ONLY SEEMS TO ESCALATE HIS OUTBURSTS. REFUSES PO MEDS EXCEPT PAIN MEDICATION. PATIENT WILLING TO TAKE IM SHOTS.
--- NOTE | 2018-11-01 23:06 | NUR ---
PT GENERALLY QUIET AND COOPERATIVE EARLY IN SHIFT. BECAME VERBALLY ABUSIVE AND PHYSICALLY COMBATIVE AT 2200 WHEN HS MEDICATION WAS OFFERED. SECURITY CALLED FOR ASSIST IN GIVING IM THORAZINE. INJECTION OF 50 MG IM THORAZINE TO RT BUTTOCK.
[2018-11-01 23:21] VITALS: BP 146/106
[2018-11-02 08:51] VITALS: BP 146/98
[2018-11-02 10:14] VITALS: BP 146/98
--- NOTE | 2018-11-02 10:32 | NUR ---
PATIENT WAS UP FOR THIS MORNING, CONSUMED 100% BREAKFAST. HE INITIALLY AGREED TO TAKE PO MEDICATIONS, AFTER SCANNING MEDS, AND OFFERED MEDICATION TO HIM, PATIENT KNOCKED OUT MEDICATION FROMTHIS RN'S HAND, BECAME VERBALLY ABUSIVE, HATEFUL, STATING " WHERE DO YOU COME FROM YOU BITCH I AM NOT TAKING THAT BITCH. I AM NOT TAKING THOS MEDICATION GIVE ME A SHOT" PATIENT GOT OUT OF MATTRESS, GOT ON THE FLOOR, CRAWLED OUT OF THE HALLWAY, BECAME VERY DIFFICULT TO REDIRECT. BACK-UP IM THORAZINE ADMINISTERED TOO RIGHT BUTTOCKS WITH ASSIST OF DR. HYDE, AND ANOTHER STAFF MEMBER, WELL TOLERATED. PATIENT CONTINUE TO BE AROGANT, DISTRUPTIVE, LOUD, AGITATED. DR. HYDE AWARE THAT PATIENT REFUSED ALL MORNING MEDICATION. PATIENT CURRENTLY IN ROOM LAYING ON A MATTRESS BEDSIDE HIS BED, WILL CONTINUE TO REDIRECT AND MONITOR FOR SAFETY.
--- NOTE | 2018-11-02 11:40 | NUR ---
Seen for follow up. Remains on regular diet, w/ rey ensure enlive BID at lunch and dinner. Spoke w/ staff member behind nursing desk. Not deeemed appropriate for pt interview today. No new nutrition concerns voiced by staff. Nutrition intake remains excellent. Eating 100% of majority of meals. 95% meal average per last 15 recordings. 100% supplement intake since 10/30. Per provider note, guardianship process started. Remains low nutrition risk.
[2018-11-02 19:37] VITALS: BP 133/82
[2018-11-02 19:39] VITALS: BP 117/81
--- NOTE | 2018-11-02 21:10 | NUR ---
PT IN DAY ROOM UPON ARRIVAL TO SHIFT EATING DINNER IN DAY ROOM. PT YELLING WHILE TALKING, BUT NOT ANGRY. PT REFUSED HS MEDS, COMPLIANT WITH SNACK. PT REQUESTED IM SHOT STATED IT MAKES HIM SLEEP. PT IS SLEEPING ON MATTRESS ON FLOOR WITH W/C NEXT TO HIM. PT VERBALIZED HE DID NOT WANT HIS TEETH CLEANED BECAUSE WE DID NOT HAVE FIXODENT.
--- NOTE | 2018-11-03 01:42 | NUR ---
PT REFUSING ASSISTANCE WITH ADL CARES.
--- NOTE | 2018-11-03 02:53 | NUR ---
PT AWAKENED AND CAME TO DAY ROOM, HE WAS WHISPERING AND TALKING TO HIMSELF IN A UPBEAT TONE.
[2018-11-03 08:15] VITALS: BP 121/91
--- NOTE | 2018-11-03 10:43 | NUR ---
ASSUMED PATIENT CARE AT 0700. PATIENT IN BED AT THAT TIME. UP TO DR AT 0845, ASSISTED IN W/C PER STAFF. ATE 90% OF BREAKFAST, 120 JUICE; HOWEVER REFUSED A.M. P.O. MEDICATIONS. STATED "i WILL TAKE A SHOT!" ADMINISTERED NEW ORDER OF 62.5 MG THORAZINE AT 0900, TIMES THREE STAFF. PATIENT WAS ATTEMPTING TO HAVE NURSE ADMINISTER INJECTION IN HIS MID-BUTTOCKS. PATIENT RECEIVED INJECTION IN MID-UPPER ANTERIOR THIGH.
--- NOTE | 2018-11-03 15:55 | NUR ---
PATIENT WAS IN D.R. SITTING IN HIS W/C, WHEN AT ABOUT 12:45 P.M., PATIENT SUDDENDLY YELLED OUT, "HELP ME, I;M ON THE FLOOR." STAFF, TIMES THREE, ASSISTED PATIENT UP TO SOFA TO SIT DOWN. PATIENT WAS NOT INJURED. SECURITY TAPE REVIEWED, OBSERVED PATIENT THROWING HIMSELF ONTO TO THE FLOOR IN DINING ROOM, ALONGSIDE OF THE SOFA, NEAR THE T.V.
--- NOTE | 2018-11-03 15:59 | NUR ---
AT 1500, NURSE APPROACHED THE PATIENT TO TAKE HIS 1500 THORAZINE, ORAL. HE THEN ASKED, "HOW MANY PILLS/' TARA CHECKED THE DOSE, TOLD PATIENT 125 MG, FIVE PILLS. PATIENT THEN YELLED AT NURSE, STATED "IT IS SUPPOSED TO BE FOUR, AND NOW YOU ARE CHANGING IT TO FIVE PILLS." NURSE WAITED FOR ABOUT THIRTY MINUITES, THEN REAPPROACHED PATIENT. PATIENT THEN SAID IT WAS TWO PILLS, THEN IT WAS FOUR, NOW YOU ARE TRYING TO GIVE ME FIVE." NURSE THEN RELAYED THAT STAFF NEEDED TO TAKE HIM TO HIS ROOM, HE REFUSED. SAID YOU HAVE TO DO IT OUT HERE, IN FRONMT OF EVERYONE TO SEE YOU." NURSE ADMINISTERED INJECTION IN PATIENT'S LEFT MID-ANTERIOR THIGH, WHILE PATIENT REMAINED IN HIS CHAIR IN THE DINING ROOM. PATIENT WAS ALLOWED TO GO TO HIS ROOM TO LIE DOWEN AT THIS TIME.
--- NOTE | 2018-11-03 17:02 | NUR ---
MARIANN called in left a voicemail for Travon Mendez concerning pt guardianship. SW provided contact number, and asked if she can return call.
--- NOTE | 2018-11-03 17:04 | NUR ---
SW spoke with pt concerning his behavior towards staff, and other residents. SW explained that he could not yell or scream at the nursing staff. SW spoke with pt concerning boundaries. Pt became upset, and mention that he is not going allow a woman tell him what to do. SW explained that he would need to communicate his needs to nursing respectful. Pt mention that he is pain with his back. SW validate pt feels, and expressed that if he would take his medication then it would alleviate his pain. pt became upset and walked away. Sw will follow-up with the pt.
[2018-11-03 19:31] VITALS: BP 143/89
--- NOTE | 2018-11-03 21:39 | NUR ---
PT RESTING IN ROOM ON MATTRESS ON FLOOR, CALM COOPERATIVE. PT TOLD NURSE HE WOULD NOT TAKE 5 PILLS AND HE WANTED A SHOT. PT COMPLIANT WITH HS SNACK. PT DID COME TO DAY ROOM AND ASKED FOR SECOND SNACK AND PROVIDED. PT REQUESTED PRN FOR MILD BACK PAIN AND PROVIDED.
--- NOTE | 2018-11-04 01:14 | NUR ---
PT AWAKENED, CHANGED HIS CLOTHES, CAME TO DAY ROOM. TALKING WITH STAFF WATCHING TV. DISCUSSED HOW HE KNOWS WOMEN THAT ALL YOU NEED TO DO IS LISTEN AND THAT WOMEN DO NOT LIKE ASHY MEN. HE SHOULD STAFF HIS FEET, DECLINED WANTING TO WEAR SOCKS. PT SMILING, CALM, NOT YELLING, LAUGHING.
--- NOTE | 2018-11-04 02:53 | NUR ---
PATIENT STATED TO THIS NURSE 'IT MAY NOT BE TODAY OR TOMORROW, BUT IM GONNA GET YOU.'
[2018-11-04 07:56] VITALS: BP 127/90
--- NOTE | 2018-11-04 14:57 | NUR ---
MARIANN spoke jenny Stephens concerning pt health and safety. MARIANN explained that pt will be here at [facility] until his guardianship hearing. MARIANN explained that she will be served to testify on behalf of his care. MARIANN explained that the attory Charlotte Ron will be in contact concerning the court date.
--- NOTE | 2018-11-04 17:12 | NUR ---
ATE ALL 3 MEALS IN DINNIG ROOM WITH GOOD APPETITE AND GOOD TOLERATION. TYLENOL GIVEN FOR C/O BACK PAIN. REFUSED ORAL MEDS -IM GIVEN. BEHAVIOR IMPROVED TODAY WITH LESS OUTBURSTS. OCCASIONALLY LAYS DOWN IN ROOM ON MATTRESS ON FLOOR. SELF PROPELS WITH LEGS IN W/C. DID NOT ATTEND GROUPS TODAY.
[2018-11-04 19:24] VITALS: BP 162/90
--- NOTE | 2018-11-04 22:31 | NUR ---
PT PROPELIHNG SELF IN W/C IN HALLS AND DAY ROOM. PT YELLING AT MALE TECH, ASSIGNMENT CHANGED TO FEMALE TECH. PT ABLE TO BE REDIRECTED TO STOP HAVING CONVERSATION WTIH MALE TECH. PT COMPLIANT WITH ORAL MEDS WITH ENCOURAGEMENT. PT HAD HS SNACK. PT REQUESTED PRN IBUPROFEN FOR BACK PAIN MINIMAL 3, PT RESTING ON MATTRESS ON FLOOR IN ROOM.
[2018-11-05 07:15] VITALS: BP 177/73
--- NOTE | 2018-11-05 08:00 | NUR ---
PT NEEDED HELP WITH BREAKFAST OPENING JELLY PACKS AND ENSURE SHAKE. THIS NURSE WALKS AWAY AND STATED HE NEEDED HELP PUTTING JELLY ON BREAD, HE STATED YOU KNOW THIS AND THAT THIS NURSE IS PART OF IT. PT VERY DEMANDING AND NOT PATIENT.
[2018-11-05 11:30] VITALS: BP 157/108
--- NOTE | 2018-11-05 11:38 | NUR ---
PT TOOK MEDS AND WANTED TO KNOW WHAT EACH MED WAS BEFORE TAKING. PT TOOK COREG, NORVASC, REFUSED FLOMAX, AND PROSCAR. PT DID TAKE SCHITZOPHRENIC MED WITHOUT HAVING TO HAVE A SHOT. SECURITY WAS HERE WALKING THROUGH. PT WAS SITTING IN W/C WITH BRIEF PANTS DOWN TO HIS ANKLES AND BLUE PANTS. PT DIDN'T WANT TO WELDER ASSISTANT TO GET CLOTHES ON. HE LAYED ON FLOOR AND DIDN'T WANT TO SIT UP TO HELP. PT TALKS ABOUT BLACK AND WHITE PEOPLE. CALL NURSE OLD WHITE LADY.
--- NOTE | 2018-11-05 13:09 | NUR ---
VERY HARD TO REASON WITH. MADE PT BED WHICH IS ON THE FLOOR. PT STATED THIS NURSE DIDN'T MAKE THE BED. THIS NURSE DID MAKE THE BED. AIDE PUT MATTRESS FROM FLOOR TO BED. PT NOW WANTING TO KNOW ABOUT WHY IS MATTRESS IS ON THE BED FRAME.
--- NOTE | 2018-11-05 17:35 | NUR ---
PT SLEEPING ON AND OFF TODAY. UP FOR DINNER. REFUSING COREG DUE TO EATING. PT VERY CONFORTATIONAL. EXPLAINED TO PT ABOUT COREG IS FOR HIS HEART. PT STATED HE DIDN'T CARE, PT REFUSED COREG FOR DINNER. PT ALSO STATED HE WANTED SUGAR IN TEA. PLACED SUGAR IN TEA, TEA LOOKED CLOUDY MADE NEW TEA WITH SUGAR. PT STATED HE DIDN'T WANT THE TEA NOW.
--- NOTE | 2018-11-05 19:41 | NUR ---
ASSUMED CARE OF THE PT AT 191 PM. THE PT WAS LYING ON THE MATTRESS ON THE FLOOR. DENIES ANY PAIN, STATED THAT HE FELT GOOD TODAY. REFUSED TO LET THIS MULTI SHARE PROGRAM COORDINATOR TAKE HIS BLOOD PRESSURE THIS EVENING. HEART RATE REGULAR. LUNGS CLEAR BILATERALLY. +BS HEARD IN ALL 4 QUADRANTS. REMAINS ON 12 MINUTE CHECKS FOR HIS SAFETY.
--- NOTE | 2018-11-06 01:05 | NUR ---
THE PT HAS BEEN UP AND DOWN FROM HIS BED AND INTO THE WHEELCHAIR SEVERAL TIMES THIS SHIFT. HE HAS BEEN ATTEMPTING TO ELOPE BY PUSHING THE DOOR THAT LEAVES THE UNIT. REDIRECTED THE PT BACK TO HIS ROOM EACH TIME HE TRIES THIS. REMAINS ON 12 MINUTE CHECKS FOR HIS SAFETY.
--- NOTE | 2018-11-06 01:10 | NUR ---
EARLIER IN THIS SHIFT THE PT REFUSED TO TAKE HIS PO DOSE OF FLUOPHEMAZINE, SO THIS TRAFFIC SUPERVISOR GAVE HIM A SHOT OF FLUOPHEMAZINE 3.75MG IM TO HIS BILATERAL LEGS, THIS CAME IN TWO SHOTS. AFTER THIS TRAFFIC SUPERVISOR CALLED SECURITY TO COME UP AND HELP WITH THE PT. HE THEN STARTED TRYING TO LEAVE THE UNIT BY PUSHING ON BOTH OUTSIDE DOORS, CALLED STAFF NAMES. HE THEN RECEIVED A DOSE OF THORAZINE 62.5MG IM TO HIS RIGHT HIP. REMAINS ON 12 MINUTE CHECKS FOR HIS SAFETY.
--- NOTE | 2018-11-06 03:23 | NUR ---
Patient up and restless through most of the night. Patient would lay down for approximately 15 minutes, then be up pacing halls. Patient pushing the doorbell alarm at the end of the hill. Pushing and hitting the doors at the end of the hill. One nurse went into supply room and patient rushed after nurse trying to go into supply room. Patient kept repeating that he needed to get out, "why are you locking me up?" Patient in his room rubbing water all over his body. Patient attempting to put his feet in the sink with his socks on. Patient stated he was washing his feet. Patient offered snack, declined. Patient had used the bathroom with supervision. Patients bed was made several times. He continued to bundle up his linens, tear apart bags/kleenex/toilet paper/cups. Patient was fairly re-directable approximately every 15 minutes. Confused but pleasant. Until approximately 0230. Patient continued listed behaviors but started to show more aggression. When staff would enter unit, he would try to push the doors and hit staff out of his way so he could exit unit. Patient presented with a more aggressive tone of voice. Patient would hold his finger up to staff and start to yell. Patient became harder and harder to re-direct. For safety of patient and staff, security notified and nurse administered Thorazine IM to left buttock at 0251. Patient is currently resting quietly on his mattress which is located on the floor. Patient room lights are on which is his preference.
--- NOTE | 2018-11-06 05:52 | NUR ---
THE PT APPEARS TO BE RESTING QUIETLY ON TOP OF THE MATTRESS THAT IS ON THE FLOOR AT THIS TIME. TOOK TYLENOL EARLIER THIS AM FOR PAIN. REMAINS ON 12 MINUTE CHECKS FOR HIS SAFETY.
--- NOTE | 2018-11-06 07:45 | NUR ---
PATIENT BECAME VERBALLY ABUSIVE IN A THREATENING MANNER TOWARDS STAFF. PRN THORAZINE IM ADMINISTERED, SECURITY STANDING BY, AT 0744 A.M. PATIENT WAS SITTING IN FRONT OF THE T.V. AT THAT TIME; TWO OTHER PATIENTS WHO WERE IN THE DINING ROOM AT THAT TIME WERE REMOVED FROM THE AREA PRIOR TO GIVING PATIENT I.M.
[2018-11-06 07:50] VITALS: BP 149/104
--- NOTE | 2018-11-06 09:00 | NUR ---
ASSUMED PATIENT CARE AT 0700. PATIENT WAS PREVIOUSLY COMBATIVE WITH NIGHT STAFF, ADMINISTERED AN IM THORAZINE PRN NOTED ABOVE. AT BREAKFAST TABLE AT PRESENT; NURSE APPROACHED TO LET PT KNOW THAT HE WILL BE GETTING HIS AM MEDICATIONS. PT IMMEDIATELY YELLED AT NURSE THAT HE JUST HAD A SHOT FOR HIS MEDICATIONS AND WAS NOT TAKING ANY MORE MEDICINE. NURSE CLARIFIED THAT HE DID NOT RECEIVE HIS HEART MEDICATION AND OTHER MEDICATIONS. WILL APPROACH PATIENT AGAIN AFTER COMPLETING HIS BREAKFAST.
--- NOTE | 2018-11-06 15:36 | NUR ---
Date of Admission: 10/25/18 Date of Activity Therapy Assessment: 10/28/2018 Activity Goal: 1 group per day Initial Goal: Patient will participate in one recreation therapy group per day until discharge to aid in development of social and communication skills and boundaries to communicate frustration. Weekly progress towards goal: Did not achieve Group participation level: minimal to none Behaviors observed: Attention seeking, name calling, yelling, combative behavior, shaking fists, threatening, disruptive beahvior, often sleeping during groups, name calling and poor boundaries. Plan: Offer 1:1 session when unable to participate in group, due to behaviors.
--- NOTE | 2018-11-06 19:32 | NUR ---
PATIENT DID NOT GET UP FOR LUNCH UNTIL AFTER 1300. LUNCH WAS OVER AND ALL TRAYS HAD BEEN REMOVED FROM D.R. PATIENT C/O, LOUDLY, THAT NO ONE TOLD HIM THAT IT WAS LUNCH TIME. NURSE REMINDED PATIENT THAT DR. HYDE HAD TOLD HIM, AND THAT NURSE WAS IN THE ROOM AND HEARD HIM. PATIENT WAS GIVEN A SNACK, APPLLESAUCE AND GRAHM CRACKERS. PATIENT WATCH T.V. FOR A WHILE, TALKED TO PEOPLE WHO WERE ON THE T.V., THEN RETURNED TO ROOM TO LIE DOWN. UP FOR DINNER, ATE 100% OF DINNER. JAIL THROUGH DINNER, HOWEVER, PATIENT TOOK HIS UPPER ONE OF HIS DENTURES OUT OF HIS MOUTH, ANGRILY STATING TO LOOK AT THEM BECAUSE THERE WAS NO DENTURE CREAM ON THEM. NURSE ASSISTED WITH NEW APPLICATION OF DENTURE CREAM.
--- NOTE | 2018-11-07 01:11 | NUR ---
PATIENT WAS IN THE DAY ROOM BEING BELIGERENT WITH STAFF, MAKING HOMICIDAL STATEMENTS AND CALLING STAFF FOUL NAMES AND ATTEMPTING TO PUNCH AND HIT STAFF. DR. HYDE NOTIFIED WITH ORDERS TO GIVE THORAZINE 75MG IM STAT. GIVEN ORDERED.
--- NOTE | 2018-11-07 02:42 | NUR ---
NURSES NOTE - KATYA IS ALERT AND ORIENTED X2/3. IN THE BEGGINING OF THE SHIFT PATIENT WAS CALM AND COOPERATIVE AND FOLLOWED STAFF DIRECTIONS AND TOOK MEDICATION PO. THIS NURSE WITNESSED PATIENT TAKE MEDICATION AND OBSERVED FOR CHEEKING. HE CONTINUED TO STAY UP THROUGH THE EVENING BECOME COMBATIVE, BOISTEROUS, AND THREATENING TO STAFF. HE APPEARS WITH A TENSE AFFECT. HE DID ASK THIS RN TO CALL [facility] FOR HIM TO LET THEM KNOW HE WAS HERE IN 'RETIREMENT.' HE APPEARS AT TIMES TO BE TALKING TO PEOPLE WHO THIS NURSE CANNOT SEE NOR HEAR. HE DID NOT REPORT SI, BUT MADE HI STATEMENTS TO A STAFF MEMBER WITHOUT A PLAN. HE DID NOT REPORT AN HALLUCINATIONS. HE DENIED MEDICAL CONCERNS WITH NO S/S OF DISTRESS. NURSING WILL MAINTAIN ALL PRECAUTIONS TO ENSURE SAFETY AT ALL TIMES.
--- NOTE | 2018-11-07 06:03 | NUR ---
PATIENT SLEPT 3.8 HOURS PER BODY SHOP MANAGER
[2018-11-07 09:18] VITALS: BP 194/134
--- NOTE | 2018-11-07 11:03 | NUR ---
ASSUMED CARE OF PT AT 0700. AT BEGINNING OF SHIFT PT WAS HOLLERING/RAMBLING INCOHERENTLY IN HIS ROOM. PT WAS LYING ON MATTRESS ON FLOOR PER HIS REQUEST. PT WAS IRRITABLE WITH STAFF WHEN ASKED HOW HE WAS DOING THIS AM. "WELL, HOW DO YOU THINK I AM DOING AFTER THE WAY YOU ALL TREAT ME, JUST LEAVE ME ALONE." PT DID EAT BREAKFAST IN DAYROOM, ORAL CARE PROVIDED. PT BP THIS AM 191/134, DR. HYDE ON UNIT AND NOTIFIED. RN WAS ABLE TO GET PT TO TAKE BP MED, BUT PT REFUSED OTHER AM MEDS. PT REFUSED TO LET POLICE COMMUNICATIONS DISPATCHER PERFORM AM ASSESSMENT. PT ALERT AND ORIENTED x2. PT DENIED SI. PT W/LABILE MOOD, (ANGER/IRRITABLE/CALM) - "GO AHEAD KILL ME IN FRONT OF ALL THIS PEOPLE." NO ACUTE DISTRESS NOTED. WILL CONTINUE TO MONITOR THROUGHOUT SHIFT.
--- NOTE | 2018-11-07 12:49 | NUR ---
PT BLOOD PRESSURE THIS AM 194/131 PULSE 115, PT AGITATED AND UPSET. TOOK AM BP MED BUT REFUSED THE REST OF AM MEDS. BP RECHECK 144/100 PULSE 117. PT IN WHEELCHAIR YELLING AND VERBALLY TO STAFF. DR. QUESADA WAS NOTIFIED OF BP'S AND NO NEW ORDERS GIVEN. CONTINUE TO MONITOR. IBUPROFEN PRN GIVEN ALSO PER PT REQUEST FOR GENERALIZED PAIN - PT RESTING AT PRESENT ON MATTRESS ON FLOOR IN HIS ROOM PER HIS REQUEST. CONTINUE TO MONITOR.
[2018-11-07 15:36] VITALS: BP 144/10; BP 144/100
--- NOTE | 2018-11-07 18:07 | NUR ---
PT UP IN WHEELCHAIR YELLING AT STAFF THAT HE IS DYING (1715) AND VERBALLY NAME CALLING STAFF AND PEERS, WOULD NOT RESPOND TO STAFF'S VERBAL REDIRECTION AND BEGAN THREATENING STAFF. DR. HYDE ON UNIT AND CALLED SECURITY FOR SUPPORT. STAFF ASKED PT TO LEAVE DAYROOM AND PT REFUSED AND STOOD UP FROM WHEELCHAIR AND PICKED CHAIR UP IN THREATENING MANNER, YELLING, SWINGING FISTS AT STAFF. PT WAS TAKEN TO SECLUSION FOR SAFETY OF SELF AND OTHERS AT [address] HYDE ORDER. PT ESCORTED TO [facility] IN HIS WHEELCHAIR WITH STAFF X4. PT RECEIVED IM THORAZINE 75MG TO R UPPER HIP @ 1730 D/T HIS SEVERE AGITATION AND THREATENING BEHAVIOR. LOCKED [facility] ORDER RECEIVED DR. HYDE 1735. DR. HYDE NOTIFIED SUPERVISOR HYDROCHLORIC AREA PT 1:1 @ PRESENT W/STAFF VISUALIZING PT. PT MUMBLING INTERMITTENTLY @ 1815, CALMER AND LYING ON MATTRESS IN SECLUSION ROOM RESP. EVEN AND EASY. EYES CLOSED.
--- NOTE | 2018-11-07 18:19 | NUR ---
PT REMAINS 1:1 IN STAFF VIEW. CONINUES IN [facility] ROOM. PT APPEARS CALMER BUT W/INTERMITTENT BOUTS OF AGITATION & MUMBLING, CUSSING AT STAFF. NO ACUTE PHYSICAL DISTRESS NOTED.
--- NOTE | 2018-11-07 18:25 | NUR ---
PT REMAINS IN [facility] ON 1:1 AT PRESENT. LYING ON STOMACH IN [facility]CLUSION ROOM ON BED. QUIET AT PRESENT, RESP. EASY/EVEN. NO ACUTE PHYSICAL DISTRESS NOTED. CONTINUE MONITORING.
--- NOTE | 2018-11-07 18:30 | NUR ---
PT IN [facility] ON 1:1 - TALKING TO HIMSELF, LYING ON MATTRESS. PT SAT UP LOOK AT MUNICIPAL MAINTENANCE WORKER AND YELLED "WHAT ARE YOU LOOKING AT AND LAID BACK ON BED."
--- NOTE | 2018-11-07 18:48 | NUR ---
PT CALM AND COOPERATIVE, ABLE TO RESPOND TO VERBAL STIMULI. DR HYDE PAGED AND ORDER RECEIVED TO RELEASE PT FROM [facility] PT ABLE TO VERBALLY CONTRACT W/STAFF. ESCORTED TO HIS ROOM AND RESTING QUIETLY ON MATTRESS AT THIS TIME.
[2018-11-07 21:50] VITALS: BP 139/85
--- NOTE | 2018-11-08 00:08 | NUR ---
PT RELEASED PRIOR TO START OF SHIFT FROM [facility]. PT SPEAKS LOUDLY, YELLING. REQUESTING SNACKS AND PROVIDED. PT REFUSED HS MEDS STATED 4 PILLS IS TO MANY HE WANTED THE SHOT AND PROVIDED. HOWEVER, PT INSISTED ON HAVING SHOT IN DAY ROOM IN GLUTEAL AREA, PT WAS YELLING AND BEING AGGRESSIVE A PRESENTATION FOR OTHER PATIENTS AND NURSING CORPORATE STRATEGY INTERN ON FLOOR. PT RETURNED TO HIS ROOM, RESTING ON MATTRESS ON FLOOR. PT PUTTING ON 3 BREIFS FOR INCONTINENCE BUT IS CHANGING HIMSELF, PT ALSO WAS SUPERVISED TO SHAVE. PT PROPELS SELF IN W/C. GOOD EYE CONTACT REMAINS LABILE CALM TO RESTLESS AND DEMANDING AND YELLING.
--- NOTE | 2018-11-08 01:19 | NUR ---
pt wanting staff to call [facility], [employer] and Mir [facility] regarding a complaint that is due 11/09/18. pt told he would need to call in the am. sw left message to assist pt in the am.
--- NOTE | 2018-11-08 05:54 | NUR ---
PT AWAKE INTERMITTENTLY THROUGHOUT THE NIGHT, WATCHING TV, SNACKS X 2, SHAVED, CHANGED CLOTHES.
--- NOTE | 2018-11-08 07:43 | NUR ---
ASSUMED PATIENT CARE AT 0700. PATIENT UP IN W/C IN D.R., CALM MOOD AT THAT TIME. VERY COURTEOUS AND POLITE WITH THIS NURSE.
[2018-11-08 09:48] VITALS: BP 129/88
--- NOTE | 2018-11-08 12:06 | NUR ---
MARIAH TALKED ON THE PATIENT PHONE FOR APPROXIMATELY 15 MINUTES AT ABOUT 0830. CONTACTED AN UNKNOWN IDENTITY TO THIS NURSE UNIT DIRECTOR, SEEKING HELP TO HOW HE COULD GET OF THE HOSPITAL. STATED MANY NON-SENSICAL STATEMENTS, THEN WENT DIRECTLY TO HIS ROOM. PATIENT REFUSED TO WAKE UP TO TAKE HIS ORAL MEDICATIONS. VITAL SIGNS RE-ASSESSED: 123/79, 96 HR, RESPIRATIONS 20, O2 100% AT 11:00 A.M. RECEIVED ORDERED IM, SINCE HE REFUSED ORAL MEDICATIONS.
--- NOTE | 2018-11-08 22:08 | NUR ---
PT REQUESTING MEDICATIONS FROM NURSE AT FIRST INTERACTION. PT WENT TO HIS ROOM AND RESTED ON MATTRESS ON FLOOR, CALM, GOOD EYE CONTACT, NO YELLING WITH TALKING. PT COMPLIANT WITH ORAL MEDS. PT DECLINED HS SNACK. PROPELLING SELF IN W/C.
--- NOTE | 2018-11-09 04:57 | NUR ---
PT AWAKE MOST OF THE NIGHT, TALKING TO SELF AND STAFF, EATING, CHANGING CLOTHES. PT STATED HE IS WEARING MULTIPLE PANTS AND BRIEFS.
--- NOTE | 2018-11-09 11:30 | NUR ---
Nutrition followup: pt continues on regular diet with ensure BID. Pt sleeping soundly during visit. Spoke with staff. Pt intake 95-100% most meals with a few lunch refusals. Drinks generally 100% of supplements. Nsg states he is wanting to receive ensure TID, will increase. No new weight since 10/25. Request new weight. Undergoing guardianship process. Continue as low risk.
[2018-11-09 12:38] VITALS: BP 143/100
--- NOTE | 2018-11-09 18:29 | NUR ---
PATIENT HAS BEEN INTRUSIVE AND LOUD, ALWAYS AT MEAL AND VISITORS TIMES. COMES TO THE DINING ROOM AND BEGINS MAKING DEMANDS OF NURSING STAFF. AT APPROXIMATELY 0950 THIS A.M. CAME TO LARGE GROUP ROOM/MEETING ROOM WHERE MOST OF THE OTHER PATIENTS WERE SEATED. HAD PREVIOUSLY REFUSED HIS 0900 MEDICATIONS, WHICH NURSE WAS HOLDING, ANTICIPATING THAT HE WOULD GET UP AGAIN--HAD GONE TO ROOM IMMEDIATELY AFTER EATING AND THEN CAME BACK TO D.R. HE ASKED WHERE HIS MEDICATION WAS, NURSE THEN HANDED THE PATIENT HIS PILLS, AT WHICH TIME HE THREW THE PILLS ON THE FLOOR. 2 MALE SECURITY STAFF HAD JUST ARRIVED ON THE UNIT FOR SAFETY CHECK. PATIENT BECAME LOUDER, YELLING AND REFUSING TO LEAVE THE AREA. WHEELED TO HIS ROOM BY SECURITY STAFF; NURSE ADMINISTERED FLUEPHENAZINE 5 MG/2 ML AT THAT TIME, LEFT DELTOID. PATIENT HAD BEEN INCONTINENT OF URINE, STATED "I NEED TO BE CHANGED." TWO STAFF, BOUCHRA AND ASSISTED PATIENT, PATIENT YELLING THE ENTIRE TIME, DEMANDED THAT THEY "GET DOWN THERE AND RUB IT CLEAN," OR SOMETHING OF THAT NATURE. PATIENT THEN WENT TO SLEEP AGAIN. PATIENT CONTINUED HIS INTRUSIVE, LOUD BEHAVIOR, MAKING DEMANDS OF NURSES. AFTER HE ATE DINNER, HE CAME TO THE DINING ROOM IN HIS W/C WITHOUT ANYTHING ON EXCEPT HIS BRIEFS. DEMANDED THAT HE BE CHANGED AND BED MADE UP. JLUISSA SHOOK, ASSISTED PATIENT WITH BOTH, AFTER COMPLETING HER DINING ROOM DUTIES. PATIENT WHEELED BY NURSE'S STATION AT 1800, COMMENTED THAT HE DID NOT HAVE ANY OTHER MEDICATIONS FOR THE REST OF THE DAY. NURSE COMMENTED THAT HE BEDTIME MEDTIME MEDICATIONS, PATIENT BECAME ANGRY, NURSE DID NOT COMMUNICATE WITH PATIENT FURTHER. PATIENT WENT TO HIS ROOM. PATIENT THEN SLEPT UNTIL AROUND 12 NOON, CAME TO D.R. TO EAT LUNCH,
[2018-11-09 19:37] VITALS: BP 133/81
--- NOTE | 2018-11-09 20:18 | NUR ---
RECEIVED REPORT FROM OFFGOING DAY NURSE. ASSUMED CARE @ 1900. IN BED ON THE FLOOR. WHEN AWAKENED, DEMANDED FIXODENT, THEN REFUSED IT WHEN OFFERED. ASKED FOR PAIN MEDS, WHEN TOLD THE TIME THAT HE CAN GET PAIN MEDS (TYLENOL), HE YELLED AND FUSSED, REPEATEDLY.
[2018-11-09 22:24] VITALS: BP 133/81
--- NOTE | 2018-11-10 06:09 | NUR ---
slept 4 hours overnight.
[2018-11-10 06:34] LABS: CREATININE 0.8 mg/dL (0.7-1.3)
[2018-11-10 07:56] VITALS: BP 153/95
[2018-11-10 11:24] VITALS: BP 153/95
--- NOTE | 2018-11-10 13:08 | NUR ---
ASSUMED CARE AT 0700 THIS AM. PT. AWAKE ALERT. HE REMAINS UNABLE TO GET HIS THOUGHTS ACCROSS TO STAFF. HE TRIES MANY TIMES AND AT TIMES CAN COMMUNICATE TO A DEGREE. COMPLIANT WITH MEDICATIONS THIS MORNING. HE WAS GIVEN HIS 0900 AND 1300 MEDS BEFORE LEAVING FOR [facility]. REPORT GIVEN TO Brenda [place] PACKET GIVEN TO SUPERVISOR HIDE HOUSE TO DELIVER TO [facility] ENCLUDING FACE SHEET, MEDICATION LIST, D/C SUMMARY. PT. HIS BELONGINGS, D/C PACKET ALL SENT WITH THE PATIENT AND SUPERVISOR HIDE HOUSE. HE LEFT THE UNIT IN A W/C, SENIOR COMPENSATION CONSULTANT ASSISTED TO THE CARE.
--- NOTE | 2018-11-10 15:09 | NUR ---
MARIANN observe the pt this morning. Pt was displaying behavior towards the nursing staff. Pt was verbally aggressive, and yelling the dining room. Pt stated that he is in pain, and he needs pain medicine. SW asked if the nurse would assist him with pain medication. Pt was still upset, and was asked if could come into his room. Pt begin urinating on the floor and himself through the transition. Pt stated that he wanted to lay down. Nursing staff assisted pt with cleaning himself, and proceed to lay him down. SW will follow-up with pt.
--- NOTE | 2018-11-10 15:30 | NUR ---
PATIENT HAS BEEN CALMER - NO SCREAMING OR DISRUPTIVE BEHAVIOR TODAY. REMAINS IRRITABLE BUT NURSE HAS BEEN ABLE TO WORK WITH PATIENT. TOOK MEDICATIONS WITH ENCOURAGEMENT. HAS BEEN ISOLATIVE TO ROOM ONCE MEALS SERVED. PATIENT MANUVERING AROUND WITH WHEELCHAIR. HAS EPISODE OF INCONTINENCE WHERE HE URINATED ON FLOOR BETWEEN THE BEDS. WAS ABLE TO LET STAFF KNOW HAD TO USE BATHROOM. APPROACHED NURSING STATION AT 1535 AND REQUESTED PAIN MEDICATION. HAS STATED BACK HAS BEEN HURTING MOST OF THE DAY. GIVEN 600 MG. IBUPROFEN AT 0100 TO HELP WITH DIACOMFORT.
--- NOTE | 2018-11-10 17:05 | NUR ---
ASSUMED CARE AT 0700 THIS MORNING. PT. CONTINUES TO BE CONFUSED, DISORIENTED. SHE IS MOSTLY MUTE. ONCE IN A WHILE SHE WILL ANSWER STAFF WITH A ONE WORD ANSWER. OTHERWISE SHE DOES NOT TALK AT ALL. SHE ONLY WANTS TO SLEES/REST IN HER BED. SHE HAS TO BE ON ROOM LOCK OUT FOR MEALS AND GROUPS OTHERWISE SHE WILL NOT GET OUT OF BED AT ALL. MEDS MUST BE CRUSHED AND PUT IN APPLESAUCE OR PUDDING. SHE CANNOT OR WILL NOT TAKE HER MEDS WHOLE. SHE WILL SIT DOWN IN GROUPS, SIT A FEW MINUTES THEN GET UP AND WANDER AWAY. SHE WALKS THE ROBISON CHECKING WHICH DOORS ARE OPEN. SHE WILL GO INTO THAT ROOM AND GET INTO ANY BED. THE DOOR ROOMS ARE THEREFORE LOCKED DURING MEALS AND GROUPS SO SHE CAN'T WANDER INTO OTHERS ROOMS. SHE IS HARD TO LISTEN TO WITH THE STETHASCOPE SHE TRIES TO PUSH PAST YOU SO NOT TO STOP WHEN SHE IS WANDERING THE HALLS. SHE DOES NOT STRIKE OUT OR ACT OUT. SHE JUST WANTS TO BE IN BED ALL DAY/NIGHT. THE OT GAVE HER A SHOWER TODAY. SHE WAS HELPFUL IN HELPING HER UNDRESS, SHOWER, REDRESS HERSELF.
[2018-11-10 20:45] VITALS: BP 123/87
--- NOTE | 2018-11-10 21:02 | NUR ---
PT RESTING IN BED UPON ARRIVAL TO SHIFT. PT COMPLIANT WITH MEDS AND HS SNACK. PT REQUESTED NURSE POUR MEDS AND FEED HIM HIS SNACK. COMPLIANT WTIH VS. PT CAME OUT TO DAYROOM AND INFRONT OF MIXED CROP AND LIVESTOCK FARM WORKER STATED HE NEEDED HIS BEDS CHANGED BECAUSE HE EJACULATED. PT PROPELING SELF IN W/C.
--- NOTE | 2018-11-11 02:32 | NUR ---
PT HAS BEEN TALKING TO HIMSELF IN HIS ROOM OR DAY ROOM. PT FREQUENTLY REQUESTING SNACKS.
--- NOTE | 2018-11-11 09:00 | NUR ---
DR. RIVERA HERE TO SEE PT. PT IN ROOM AFTER BREAKFAST. PT REFUSED FLOMAX AND PROSCAR. PT DID TAKE FLUPHENAZINE 3 OUT OF 5 TABS. PT STATED HE WAS JUST TAKING 2 NOW THERE IS 5. PT WANTING TO SHOW HIS PRIVATE AREA OR BUTTOCKS AND TALKING ABOUT HIS VOIDING ISSUES, BUT REFUSES FLOMAX AND PROSCAR. PT DID TAKE BP MEDS. PT UP IN W/C AND ABLE TO TRANSFER SELF.
--- NOTE | 2018-11-11 09:45 | NUR ---
PT TALKING WITH CHARACTERS ON THE TV, ASKING THEM TO LOOK AT HIM OR TALKING ABOUT THEIR CLOTHES THEY ARE WEARING OR WHAT RACE THEY ARE.
--- NOTE | 2018-11-11 11:12 | NUR ---
MARIANN left a voicemail for pt son Ward Wright requesting a call back. Sw provided contact information.
--- NOTE | 2018-11-11 14:20 | NUR ---
PT OUT OF ROOM TO EAT LUNCH. PT DEMANDING ABOUT WHERE TO PUT HIS TRAY AND HE WANTED HELP GETTING OUT OF W/C TO REG. CHAIR. PT THEN WANTED NURSE TO CUT UP HIS CHICKEN. PT VERY AWARE ABOUT WHAT HE NEEDS FOR HIS TRAY.
--- NOTE | 2018-11-11 14:41 | NUR ---
PT FINISHED EATING AND REC THERPY STATED SHE HAD TO SHUT OFF TV FOR GROUP HE STATED I DON'T CARE WHAT YOU ARE DOING BITCH. HE FINISHED EATING AND BACK TO ROOM.
--- NOTE | 2018-11-11 15:11 | NUR ---
ADM IBUPROPHEN 400MG PO FOR PAIN TO BACK PT STATED HE ONLY WANTED 2 TABS DUE TO 3 TABS MAKE HIS SLEEPY.
[2018-11-11 17:32] VITALS: BP 114/76
--- NOTE | 2018-11-11 23:28 | NUR ---
Care assumed of patient at 1915: Patient alert and oriented to person, place and situation. Disoriented on current time. Patient pleasant and cooperative this shift. Patient took HS medication without difficulties. Patient reported back pain and requested PRN Tylenol. Medication effective. Patient has been propelling self about room and unit by w/c. Patient impulsive at times. Patient also noted to be labile. No aggression shown this shift. Patient has been polite to all staff present. Patient ate 100% snack this evening. Patient speech can be loud, expansive and intrusive. Patient has been able to be re-directed without negative results. Patient is currently listening to jazz music with INTERNAL INVESTIGATOR in the day room. Patient is very happy and appreciative of this. No paranoia, hallucinations or delusions observed or reported at this time.
[2018-11-12 08:00] VITALS: BP 151/92
--- NOTE | 2018-11-12 11:15 | NUR ---
AAOX3 NAME, PLACE AND MONTH. PLEASANT AND COOPERATIVE. PROPELLES SELF IN W/C. GOING BETWEEN ROOM AND DINNING ROOM. GOOD APPETITE, EATS 100% OF MEALS AND SUPPLEMENTS. INCONTINENT OF URINE X1 THIS SHIFT. VOIDS IN TOILET AT TIMES.
--- NOTE | 2018-11-12 18:03 | NUR ---
LOUD AND COMBATIVE JUST BEFORE DINNER. PROVIDER CALLED AND RECIEVED ORDER FOR PROLIXIN 5MG IM. TRING TO PUNCH AND FIGHT NURSES. CLEARED DINNING ROOM TO PROTECT OTHER PATIENTS. ATE 100% OF DINNER. SECURITY ASSISTED TO CALM PATIENT DOWN.
--- NOTE | 2018-11-13 01:53 | NUR ---
NURSES NOTE - ASSUMED CARE OF PATIENT, PATIENT IS VERBALLY AGRESSIVE AT STAFF AT TIMES REQUIRING REDIRECTION THAT HE RESPONDS POORLY TOO. HE APPEARS TO PICK STAFF AND WILL STAFF SPLIT WHEN AVAILABLE. HE IS INTRUSIVE WITH OTHER PATIENTS AND STAFF. HE IS DEMANDING IN NATURE. HE HAS BEEN UP THROUGH THE NIGHT WITH LITTLE TO NO SLEEP AT THIS TIME. HE APPEARS WITH A TENSE AFFECT, DENIES FEELINGS OF DEPRESSION ET ANXIETY. HE DOES STATE 'IM READY TO GET OUT OF HERE.' HE DENIES SI HI AND HALLUCINATIONS, PT DOES NOT APPEAR TO BE RESPONDING TO INTERNAL STIMULI. VSS, LCTA, BS+4. HE IS ALERT AND ORIENTED X3. WILL CONTINUE TO MONITOR.
[2018-11-13 08:00] VITALS: BP 140/86
--- NOTE | 2018-11-13 08:26 | NUR ---
APPROACHED PT THIS AM FOR MED PASS. PT TOOK ALL MEDS EXCEPT THE ORANGE 10MG FLUPHENAZINE PILL. PT STATED IT MAKES HIM SLEEPY. PT ALSO TOOK 1/2 OF AMILODIPINE MED. PT PLEASANT WITH NURSE THIS AM. PT WANTING TO SHAVE TODAY. PT USES W/C FOR TRANSPORTATION.
--- NOTE | 2018-11-13 09:20 | NUR ---
WENT TO ROOM TO GIVE PT HIS 10MG FLUPHENAZINE AND OTHER HALF OF AMILODIPINE, PT SLEEPING.
--- NOTE | 2018-11-13 10:30 | NUR ---
APPROACHED PT OUT IN DINNING ROOM AND STATED IF HE DIDN'T TAKE THE 10MG FLUPHENAZINE HE WOULD GET A SHOT, HE REFUSED TO TAKE THE PILL. APPROACHED WITH THE SHOT, PT STATED HE WOULD TAKE THE PILL. ADM THE 10MG PILL AND OTHER 1/2 OF AMILODIPINE.
--- NOTE | 2018-11-13 11:00 | NUR ---
PT WANTING TO SHAVE. PT SHAVED SELF AND NURSE MADE THE BED. PT WEARING X3 PAIRS OF BRIEFS AND 2 PAIRS OF XL PANTS. ASKED PT IF HE CHANGES THE ONE PANT IF WET AND TAKES IT OFF FOR THE OTHER PAIR HE IS WEARING, PT STATED NO HE JUST LIKES TO WEAR THE EXTRA BRIEF/PANTS. PT DID GIVE BACK RAZORS WHEN FINISHED SHAVING.
[2018-11-13 17:00] VITALS: BP 154/92
--- NOTE | 2018-11-13 17:00 | NUR ---
PT DIDN'T HAVE ARM BAND ON TO SCAN. PT REFUSED THIS NURSE TO PUT ON ARMBAND.
[2018-11-13 17:20] VITALS: BP 154/92
--- NOTE | 2018-11-13 17:22 | NUR ---
PT DIDN'T WANT BP TAKEN UNTIL HE WAS FINISHED EATING. PT AGREED TO HAVE BP TAKEN, PT KEPT TAKING OFF CUFF BEFORE IT WAS FINISHED GOING DOWN. PT FINALLY GOT BP MED TAKEN. PT STATED GIVE ME MY MEDS SO I CAN GET OUT OF YOUR FACE, IM TIRED OF LOOKING AT IT SINCE I SEEN IT.
[2018-11-13 19:19] VITALS: BP 124/75
--- NOTE | 2018-11-13 21:25 | NUR ---
NURSES NOTE - PATIENT HAS BEEN UNCOOPERATIVE SINCE ASSUMING CARE AT 1900. HE HAS REFUSED VITAL SIGNS X1, ALLOWING ONLY CERTAIN STAFF TO TAKE HIS VITALS. THIS NURSE AGREED TO TAKE PATIENTS VITAL SIGNS. HE BEGAN DISPLAYING BX THAT PATIENT IS EXPERIENCING DIFFICULTIES COMMUNICATING NEEDS AND WANTS. HE HAS TURNED ON THE EMERGENCY ALARMS 3X, WITH A RESPONSE FROM SECURITY. HE DID TAKE HS MEDICATION ORDERED. HE HAS ALSO VERBALLY AND PHYSICALLY THREATEND ANOTHER PATIENT ON THE UNIT. HE HAS REQUIRED MULTIPLE REDIRECTIONS THAT FAIL FROM MULTIPLE STAFF. HE WOULD NO LONGER SPEAK TO THIS NURSE REGARDING PATIENTS CONDITION. HE DOES NOT APPEAR TO BE IN DISTRESS, DOES NOT APPEAR DEPRESSED ET ANXIOUS. HE WOULD NOT VERBALIZE WHETHER PATIENT WAS EXPERIENCING SI HI. HE DOES NOT APPEAR TO BE IN MEDICAL DISTRESS, BUT WILL CONTINUE TO MONITOR AND REASSESS NEEDED.
--- NOTE | 2018-11-14 03:00 | NUR ---
1450 VISUALLY CHECKED ON PATIENT
--- NOTE | 2018-11-14 03:32 | NUR ---
APPROXIMATELY 0320 [facility] DISCONTINUED R/T PATIENT AGREEING TO BE SAFE FROM SELF AND OTHERS. FACE TO FACE COMPLETE. WILL CONTINUE TO MONITOR FOR CHANGES.
--- NOTE | 2018-11-14 07:47 | NUR ---
Date of Admission: 10/25/18 Date of Activity Therapy Assessment:10/28/2018 Activity Goal:One group per day; 1:1 offered when pt unable or unwilling to participate. Initial Goal:Pt to attend Recreation Therapy groups, until discharge, to aid in the development of social and communication skills and boundaries to communicate frustration. Weekly progress towards goal:Did not achieve. Group participation level:None Behaviors observed:Disrespectful towards staff, cursing, yelling, refusing to participate, demanding, did not attend a single group this week, declines 1:1. Plan: No change towards goal
[2018-11-14 08:36] VITALS: BP 151/87
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
--- NOTE | 2018-11-14 15:13 | NUR ---
LOUD YELLING EPISODE/SUSPICIONS: LOUD YELLING AND NOISES CAME FROM DINING AREA; APPARENTLY A PT MADE HER WAY TO HIS TABLE AND GOT TO CLOSE, HE SCREAMED AND MOVED QUICKLY SHOVING HIS CHAIR FORWARD W/HIS MOVEMENT. CALLED STAFF BI, ASKED HIM NOT TO YELL AND UPSET EVERYONE, HE CONTINUED TO CALL STAFF BI, CMM TECHNICIAN CAME AND SPOKE QUIET WITH HIM, NURSING STAFF CONVENED TO DECIDE ON ANY ACTIONS; CMM TECHNICIAN CONTINUED TO WORK WITH HIM. HE WENT TO HIS ROOM, THEN CAME OUT AND ASKED FOR A WORSHIP SERVICE ON THE TELEVISION. AGAIN CMM TECHNICIAN AND NURSE HELPED HIM FIND THIS. WHEN ASKED IF HE WANTED ANY ICE CREAM OR COFFEE AND HE YELLED GET OUT OF MY FACE. WILL CONTINUE TO MONITOR. PT IS IN THE DINING ROOM TALKING AT THE TELEVISION.
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
--- NOTE | 2018-11-14 18:23 | NUR ---
supplementation: none brought for breakfast; called and remedied
--- NOTE | 2018-11-15 03:23 | NUR ---
PT OUT IN DAY AREA AT [facility] OF SHIFT. LOUD AT TIMES. ENCOURAGED PT TO SHARE FEELING, BUT MORE QUIETLY. EXPRESSED SOME EXPLETIVES, BUT HAS BEEN QUIET SINCE. REFUSED HS MEDS, BUT BEHAVIOR HAS BEEN COOPERATIVE, AND WE HAVE HAD NO PROBLEM WITH HIM TO THIS POINT. REQUESTED IBUPROFEN FOR "BODY ACHES". SLEPT FOR A COUPLE HOURS. OUT INTERACTING WITH STAFF FOR A MOMENT, RETURNED TO ROOM. OUT AT 0310, REQUESTING TYLENOL. PROVIDED TO PT AND HE RETURNED TO ROOM.
[2018-11-15 07:00] VITALS: BP 149/94
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
[2018-11-15 09:21] VITALS: BP 157/57
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
--- NOTE | 2018-11-15 21:56 | NUR ---
ASSUMED CARE OF THE PT AT 1914 PM. THE PT HAS BEEN IN SECLUSION AT THIS TIME, WITH A 1;1 SITTER. THE PT WAS HITTING THE GLASS WALL IN THE ROOM, YELLING, "I'M GOING TO GET YOU, BITCH." SMACKING AT THE PAZ, HE REFUSED HIS HS MEDICATIONS. THIS RN GAVE THE PT TWO SHOTS, PROLIXIN AND LORAZEPAM IM ORDERED. AFTER CALLING THE SECURITY, WHO ASSISTED WITH THE PT. AFTER HE GOT HIS SHOTS, HE STATED, "I'M GOING TO GET YOU, YOU WHITE BITCH!!!" RECEIVED THE ORDER FOR THE SECULSION ROOM AT 1999 PM. REMAINS ON 1:1 FOR HIS SAFETY AT THIS TIME.
--- NOTE | 2018-11-16 00:35 | NUR ---
THE PT WAS TAKEN OFF OF SECLUSION HE WAS AWAKE AND QUIET, NO BEHAVIORS NOTED AT THIS TIME. THE PT WAS MOVED BACK INTO HIS ROOM WITHOUT ANY DIFFICULTY. REMAINS A 1:1 AT THIS TIME FOR HIS SAFETY.
--- NOTE | 2018-11-16 06:14 | NUR ---
THE PT SLEPT 3 HOURS LAST NIGHT.
--- NOTE | 2018-11-16 09:55 | NUR ---
ASSUMED PATIENT CARE AT 0700. PATIENT LYING ON HIS MATTRESS BED ON THE FLOOR OF HIS ROOM. 1:1 SITTER ASSIGNED TO PATIENT, MELANY ON DAYS IS WITH HIM. BROUGHT TO DR BILLINGS W/ BY STAFF. NURSE SPOKE WITH PATIENT AT 0830, STATING THAT HE HAS MORNING MEDICATIONS. HE LOUDLY SAID THAT HE NEEDS TO EAT FIRST. NURSE THEN TOILD HIM TO PLEASE WAIT AT THE TABLE FOR HIS MEDS, WHICH HE AGREED TO DO. HOWEVER, WHEN NURSE REAPPROACHED PT AT 0915, HE BEGAN COMPLAINING. HE DID WAIT AT TABLE, HOWEVER, REPEADETLY SAID "GIVE THEM TO ME," WHILE NURSE WAS SCANNING AND OPENING THE MEDICATION. HE STOOD UP AND TRANSFERRED BACK TO HIS W/C AND STARTED TO WHEEL AWAY BECAUSE HE "WAS TIRED OF WAITINJG." NURSE WAS ABLE TO ENCOURAGE HIM TO STAY, TOOK HIS MEDS BEFORE LEAVING THE D.R. WHOLE WITH WATER.
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
--- NOTE | 2018-11-16 19:37 | NUR ---
PATIENT CALM WITHOUT AGGRESSION DAY SHIFT. AT 1730, PATIENT REFUSED CARVEDILOL, AFTER NURSE TOLD HIM SHE HAD HIS HEART MEDICINE. STATED "THERE'S NOTHING WRONG WITH MY HEART." THEN ADDED "I'LL TAKE THE SHOT." NURSE EDUCATED PATIENT THAT HE DOES NOT GET A SHOT FOR REFUSING HEART MEDICATION AND THAT IT WILL BE DOCUMENTED THAT HE REFUSED MEDICATION. PATIENT THEN WENT TO HIS ROOM AND LAID DOWN ON HIS BED/MATTRESS ON THE FLOOR.
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
--- NOTE | 2018-11-17 05:25 | NUR ---
pt awake most of the night, asked for snacks and pt shaved. pt interacted positively with peers that were also awake. pt did yell at female aide stating she was snitching on her peer regarding his missing brown dress socks and blue shirt.
--- NOTE | 2018-11-17 08:10 | NUR ---
PT SITTING AT DINNING ROOM. ADM MEDS IN MED CUP. PT THROW MEDS ON TABLE. PT REFUSING TO TAKE HEART MED. PT DID TAKE FLOMAX, PROSCAR, FLUPHENAZINE 2.5MG PO, AND BP MEDS. PT REFUSED FLUPHENAZINE 10MG PO AND DEPAKOTE. PT DID ALLOW VARIOUS EXCEPTIONALITIES TEACHER TO TAKE BP. PT STATED FIRST HE DIDN'T KNOW NAME, PLACE, OR MONTH. THEN PT STATED HIS NAME, MONTH, AND PLACE. PT TRANSPORTS VIA W/C AND CAN STAND UP WHEN PROVOKED. PT CURSED OUT AND STANDING UP WHEN CAME AROUND TO TELL HIM HE WOULDN'T BE GOING HOME.
[2018-11-17 09:00] VITALS: BP 158/104
--- NOTE | 2018-11-17 10:50 | NUR ---
PT PULLED DOOR TO ROOM AND PLACED CHAIR INFRONT OF DOOR. PT HAD PAPER BAG INFRONT OF FIRST DOOR.
--- NOTE | 2018-11-17 13:17 | NUR ---
PT SLEEPING AT THIS TIME.
--- NOTE | 2018-11-17 15:00 | NUR ---
DR. HYDE OPENED DOOR AND PT YELLING AT HIM, CURSING AT HIM AND STANDING UP IN ROOM. PT HAD BARACADED DOOR WITH WOODEN CHAIR.
--- NOTE | 2018-11-17 15:47 | NUR ---
ADM FLUPHENAZINE 6.5MG IM TO LEFT HIP. PT HAD REFUSED HIS 10MG PO THIS AM, DID TAKE 2.5MG TAB. STATEDS IT MAKES HIM TOO KNOCKED OUT AND HE DIDN'T WANT US TO TAKE ADVANTAGE OF HIM.
--- NOTE | 2018-11-17 17:36 | NUR ---
PT STILL RESTING IN BED.
--- NOTE | 2018-11-17 18:00 | NUR ---
ASKED PT ABOUT EATING DINNER. PT STATED BITCH GET OUT OF MY ROOM.
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
[2018-11-17 19:45] VITALS: BP 149/111
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
--- NOTE | 2018-11-18 06:46 | NUR ---
PATIENT SLEPT 1.8 HOURS
[2018-11-18 07:30] VITALS: BP 145/93
[2018-11-18 08:44] VITALS: BP 145/93
--- NOTE | 2018-11-18 08:45 | NUR ---
PT ATE BREAKFAST. PT DID TAKE AM MEDS WITHOUT ISSUES. PT WAS IN ROOM AFTER BREAKFAST. TUBE CUTTER OPERATOR HELPED STAND-BY WHILE PT TOOK MEDS WITHOUT ISSUES.
--- NOTE | 2018-11-18 12:40 | NUR ---
PT RECIEVED IBUPROPHEN 400MG PO FOR PAIN TO BACK.
--- NOTE | 2018-11-18 14:10 | NUR ---
PT BEING COMPLIANT WITH MEDS TODAY AND NOT ARGUING WITH STAFF. PT KNEW HIS OLD ROOM BEFORE WHEN HE WAS HERE.
--- NOTE | 2018-11-18 15:18 | NUR ---
ADM TYLENOL 325MG 2 TABS PO FOR PAIN TO LOWER BACK. PT COMPLIANT WITH MEDS.
--- NOTE | 2018-11-18 15:29 | NUR ---
SW observe pt today he was participating in activities. Pt did not exhibit verbal aggressive towards staf. Pt was laughing with staff. SW observe pt taken his medication appropriately. SW will follow-up with pt.
--- NOTE | 2018-11-18 16:37 | NUR ---
PT HAD LAB DRAWN, PT COOROPERATIVE WITH LAB DRAW.
[2018-11-18 16:51] LABS: HEMATOCRIT 31.7 % (42.0-52.0); HEMOGLOBIN 10.6 gm/dL (14.0-18.0); MCH 29.1 pg (26.0-34.0); MCHC 33.4 g/dL (28.0-37.0); MCV 87.4 fL (80.0-100.0); RBC 3.63 mil/uL (4.50-6.00); RDW 13.7 % (10.5-14.5); WBC 7.5 thou/uL (4.0-11.0)
[2018-11-18 17:06] LABS: CREATININE 0.8 mg/dL (0.7-1.3); POTASSIUM 4.2 mmol/L (3.5-5.1); TOTAL BILIRUBIN 0.2 mg/dL (<0.1-1.0); TOTAL PROTEIN 7.1 g/dL (6.4-8.2)
[2018-11-18 19:58] VITALS: BP 144/91
--- NOTE | 2018-11-18 21:00 | NUR ---
PT COMPLIANT WITH HS MEDS AND SNACK. PT REQUESTING TO CALL [facility] TO TALK WITH KIA GRAY TO ASK HIM TO BE HIS GUARDIAN. PT PROVIDED PHONE NUMBER, NUMBER IS BUSY. PT PROPELING SELF IN W/C.
--- NOTE | 2018-11-19 05:08 | NUR ---
pt noted to have stuttering with speech twice tonight.
[2018-11-19 07:00] VITALS: BP 157/97
--- NOTE | 2018-11-19 13:07 | NUR ---
PATIENT HAS BEEN CALMER - TOOK MEDICATIONS SCHEDULED. BECAME SOMEWHAT IRRITATED OVER MONEY SHORTAGE IN SAFE. HAD SECURITY COME UP AND TALK TO HIM AND RESOLVED WITHOUT INCIDENCE. PATIENT HAD BEEN BACK AND FORTH BETWEEN HIS ROOM AND IN DINING AREA. PREFERS TO ISOLATE - EASILY AGITATED WHEN AROUND PEERS. DID NOT PARTICIPATE IN GROUPS - THOUGH ENCOURAGED. GOOD APPETITE ATE MOST OF HIS MEALS.
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
--- NOTE | 2018-11-20 06:37 | NUR ---
PT SLEPT 3.5 HOURS
[2018-11-20 09:32] VITALS: BP 140/93
--- NOTE | 2018-11-20 12:24 | NUR ---
0700: Report rec from noc shift, care assumed. 0745: Ambulatory with walker in halls and to DR, gait steady, uses wlker safely. Feeds self a.m. meal, refused 3 a.m. meds, see MAR, no verbal outburst, does request only certain staff to do VS or assist PRN.
[2018-11-20 21:19] VITALS: BP 115/80
--- NOTE | 2018-11-20 21:58 | NUR ---
PATIENT APPROACHED THE NURSING STATION AND STATED TO THIS NURSE IN A TY ANGRY VOICE 'YOURE TAKING MY SPERM.' 'THAT MEDICINE YOU GIVE ME IS TAKING MY SPERM!' THIS RN REFERRED HIM TO QUESTIONS FOR THE PHYSICIAN.
--- NOTE | 2018-11-21 01:25 | NUR ---
NURSES NOTE - THIS NURSE ASSUMED CARE AT APPROXIMATELY 1915, UPON INITIAL GREETING PATIENT IS OBSERVED IN HIS USING BOISTEROUS LANGUAGE TOWARDS THIS NURSE STATING 'LEAVING ME THE FUCK ALONE AND GET OUT.' FURTHER ON IN THE SHIFT, PT MADE MANY DEMANDING REQUESTS SUCH GETTING HIM MILK AND SNACKS. THIS NURSE OBLIGED TO MEET THE NEEDS OF PATIENT. HIS BX CHANGED DRASTICALLY TO THANK YOU AND THANK YOU WILY TO MEMBERS OF THE STAFF. HE TOOK HS MEDICATION ALL PO WITH NO STRUGGLE. HE DENIES SI HI WELL HALLUCINATIONS AT THIS TIME. HE DID NOT VERBALIZE AND MEDICAL CONCERNS WITH NO S/S OF DISTRESS. NURSING WILL MAINTAIN ALL PRECAUTIONS TO ENSURE SAFETY AT ALL TIMES.
[2018-11-21 09:06] VITALS: BP 135/86
--- NOTE | 2018-11-21 11:27 | NUR ---
MARIANN left a voicemail for pt son Ward concerning the hearing. MARIANN provided contact information in requested a call back.
--- NOTE | 2018-11-21 12:56 | NUR ---
Date of Admission: 10/25/18 Date of Activity Therapy Assessment: 10/28/18 Activity Goal: Development of social and communication skills and boundaries to aid in communication frustration Initial Goal: 1 group per day. Offer 1:1 when group is declined Weekly progress towards goal: Did not achieve goals Group participation level: None Behaviors observed: Patients aggressive behaviors have minimalized since last note, though participation in group remains non existent. Pt has expressed interest in listening to jazz music in his room but has not completed 1:1 with NATURAL SCIENCES DEPARTMENT CHAIR to date. Plan: No change towards goal
[2018-11-21 21:08] VITALS: BP 122/77
--- NOTE | 2018-11-21 23:00 | NUR ---
PT ASLEEP IN BED UPON ARRIVAL TO SHIFT. DURING REPORT PT REQUESTED MOTRIN AND PROVIDED. PT COMPLIANT WITH HS MEDS AND SNACK. PT INITIALLY REFUSED DEPAKOTE BUT LATER STATED HE FELT ANXIOUS AND SCARED AND WANTED THAT WITH TYLENOL. PT HAS CONCERNED SAD LOOK ON HIS FACE VERSUS HIS USUAL LABILE AND HAPPY. GOOD EYE CONTACT, AMBULATING WITH WALKER AND SELF PROPEL IN W/C. PT PROVIDED NEW SOCKS AND COMPLIANT.
--- NOTE | 2018-11-22 02:49 | NUR ---
PT AWAKENED IN THE MIDDLE OF THE NIGHT, WATCHED TV, SHAVED, SMILING AND THANKING STAFF, NO FURTHER CONCERNS RELATED TO FEELING SCARED.
--- NOTE | 2018-11-22 03:23 | NUR ---
PT STATED IN DAY ROOM LOUD ENOUGH FOR PEER TO HEAR. HE STATED IF PEER CONTINUES TO GO INTO HIS ROOM AT NIGHT HE IS GOING TO BREAK HIS BONES. PT REDIRECTED AND INFORMED NURSE WOULD MONITOR AND PREVENT FURHTER OCCURENCE.
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
--- NOTE | 2018-11-22 06:45 | NUR ---
SECURITY REPORTED PT RECEIVED HIS ACCOUNT INFORMATION AND CELL PHONE NUMBERS YESTERDAY.
[2018-11-22 08:00] VITALS: BP 131/82
[2018-11-22 08:39] VITALS: BP 131/82
--- NOTE | 2018-11-22 08:46 | NUR ---
PT UP THIS AM WITH WALKER, STEADY GAIT WALKS FAST. PT WANTED SOMETHING FOR PAIN AROUND 0730. PT FINISHES BREAKFAST AND GOES STRAIGHT TO ROOM, WHEN ENTERING ROOM WITH AM MEDS AND IBUPROPHEN, PT REFUSED IBUPROPHEN AND SECOND DEPAKOTE PILL. PT TOOK REST OF MEDS.
[2018-11-22 09:00] VITALS: BP 131/82
--- NOTE | 2018-11-22 12:45 | NUR ---
PT APPROACHED NURSES DESK AND STATED HE DIDN'T HAVE HIS AM MEDS. PT ARGUED WITH NURSE AND STATED HE DIDN'T GET PAIN MED. ADM IBUPROPHEN 400MG PO FOR PAIN TO BACK OF 10 ON 1-10 SCALE.
--- NOTE | 2018-11-22 18:14 | NUR ---
ADM TYLENOL 325MG 2 PO FOR PAIN TO BACK. PT WANTING BED MADE. PT PARTICULAR ABOUT HOW THE BED SHEET FITS ON FRAME. PT WANTING BLANKET FOLDED INTO BED MATTRESS.
--- NOTE | 2018-11-22 19:52 | NUR ---
assumed care of the pt at 9115 pm. the pt was lying in his bed when this medical underwriter came on duty. heart rate regular, lungs clear bilaterally, resp., even, and unlabored. +bs heard in all 4 quadrants. abd soft et nontendor. +pp bilaterally. denies pain at this time.
--- NOTE | 2018-11-22 23:12 | NUR ---
THE PT REFUSED HIS MEDICATIONS THIS EVENING, THIS RN GAVE THE PT FLUPHENAZINE AND LORAZEPAM IM TO HIS LEFT DELTOID AFTER CALLING SECURITY. HE TOOK THE SHOT WITHOUT ANY DIFFICULTY. REMAINS ON 12 MINUTE CHECKS FOR HIS SAFETY.
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
--- NOTE | 2018-11-23 03:58 | NUR ---
REASSESSED PATIENT AT APPROXIMATELY 0345, PT IN BED WITH EYES OPEN, ANSWERED A SERIES OF QUESTIONS WITH A TENSE TY VOICE. RR APPEAR TO BE EVEN AND UNLABORED, NO SIGNS OF DISTRESS, NO SIGNS OF TRAUMA TO PATIENT. NURSING STAFF REMOVED WALKER PATIENT WAS USING THIS A WEAPON. WILL CONTINUE TO MONITOR.
--- NOTE | 2018-11-23 06:44 | NUR ---
the pt slept 2.6 hours last night.
[2018-11-23 07:10] VITALS: BP 142/93
--- NOTE | 2018-11-23 12:10 | NUR ---
Followup: remains on SB unit since 10/25. On regular diet, eating 100% of all meals and drinking 100% of ensure enlive TID consistently. Has gained 13 lb over course of admission and now BMI much healthier range 20. Can continue to offer oral supplements as pt enjoys these. Low nutrition risk
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
--- NOTE | 2018-11-24 01:25 | NUR ---
PATIENT IN ROOM SLEEPING WITH LIGHT ON WHEN CAME ON SHIFT TONIGHT. HE CONTINUES TO WANT TO BE LEFT ALONE. WENT TO GIVE MEDS AT AND PATIENT BEGAN SHOUTING AND YELLING AND SAYING I WAS GOING TO TRY AND STICK THEM DOWN HIS THROAT. I EXPLAINED I COULD NOT DO THAT AND HE WOULD CHOKE. EXPLAINED THAT IS WHY I QUIETLY CALLED HIS NAME TO WAKE HIM UP. I TOLD HIM I HAD NOT REMOVED THEM FROM THEIR PACKAGES SO HE CAN SEE AND KNOW WHAT HE IS GETTING. HE CONTINUED TO YELL AND CALL ME A BITCH. I LEFT THE ROOM AND CAME BACK AND TOLD HIM THAT HE HAD A CHOICE. HE COULD TAKE THE MEDS IN PILL FORM OR I HAD NO OTHER CHOICE BUT TO GIVE THEM IN SHOT FORM. HE STARTED YELLING AT ME AND CURSING AND CALLING ME EVERY NAME IN THE BOOK. I CALMLY SAID, " I GUESS YOU'VE MADE YOUR DECISION. I WILL TAKE IT THAT YOU WANT A SHOT" AND I CALMLY WALKED OUT. I CALLED THE PHARMACY TO ASK FOR THE INJECTION BUT I WAS ON THERE THE PATIENT CAME OUT OF HIS ROOM WITH HIS WALKER AND CALMLY SAID, "HOLD UP. I'LL TAKE THE PILLS. I'LL TAKE THE PILLS." I CANCELLED WITH THE PHARMACY AND PATIENT TOOK HIS PILLS. HE STAYED CALM AND WENT BACK TO HIS ROOM. HAVE BEEN CHECKING ON HIM AND HE CONTINUES TO LAY IN BED SWITCHING POSITIONS FROM SIDE TO SIDE WITH INTERMITTANT SLEEPING BUT MOSTLY AWAKE. HE REQUESTS THE LIGHT TO STAY ON. HE IS STAYING CALM WITH OCCASIONAL TALKING OUT LOUD TO HIMSELF. WILL CONTINUE TO MONITOR.
--- NOTE | 2018-11-24 02:23 | NUR ---
PATIENT WOULD ONLY TAKE 1.5 TABS OF HYDROCODONE WHEN GIVEN. PATIENT JUST NOW CAME BACK TO GET THE OTHER HALF TAB. I EXPLAINED THAT I HAD TO WASTE IT SINCE HE WOULD NOT TAKE IT AT THAT TIME. TOLD HIM WE COULD TRY ANOTHER PRN A LITTLE WHILE LATER BUT TO SEE IF THIS ONE HE TOOK WILL WORK FIRST. PATIENT FRUSTRATED BUT CALMLY WALKED WITH WALKER BACK TO HIS ROOM.
--- NOTE | 2018-11-24 07:15 | NUR ---
WASTED O600 CHLORPHENERAMINE 75MG PILLS AND DAY NURSE STATES SHE CAN PULL AGAIN AT 0900 IF PATIENT WILL TAKE THEM.
[2018-11-24 09:11] VITALS: BP 151/85
--- NOTE | 2018-11-24 11:02 | NUR ---
ASSUMED CARE AT 0700 TODAY. PT. REFUSED 0900 MEDICATIONS MEDICATIONS EXCEPT HIS CARDIAC MEDICATIONS. PT. RECEIVED IM BECAUSE HE REFUSED HIS MEDICATIONS. HE CAME ON TO THE UNIT AFTER THAT DEMANDING HIS SHOES STATING, "WHICH ONE OF YOU BITCHES ARE GOING TO GIVE ME MY SHOES". HE WAS INFORMED HE WAS NOT GETTING THE SHOES IN HIS LOCKER THEY ARE NOT APPROPRIATE ON THE UNIT. HE STORMED OFF AND KNOCKED ON THE DR'S DOOR BUT RECEIVED NO ANSWER. HE THEN WENT INTO THE DINING ROOM AND SAT DOWN.
[2018-11-24 11:17] VITALS: BP 151/85
[2018-11-24 20:44] VITALS: BP 116/68
[2018-11-25 02:23] VITALS: BP 116/68
--- NOTE | 2018-11-25 04:15 | NUR ---
PT OUT PERIODICALLY IN DAY AREA. LOUD BUT GENERALLY COOPERATIVE. ONLY TOOK 1/2 OF SCHEDULED HS MEDICATIONS. INSTEAD OF 2 TABS OF 2MEDS, TOOK ONLY ONE OF EACH. UP AND DOWN SEVERAL TIMES DURING THE NIGHT. WANTING TO GET SOMETHING FROM SECURITY, ABOUT HIS GUARDIANSHIP. INFORMED HIM THAT ANY REQUESTSFOR ASSIST FROM SECURITY WOULD HAVE TO WAIT WHEN THEY HAVE MORE PEOPLE THERE TO HELP HIM. ACCEPTED THIS EXPLANATION.
[2018-11-25 07:10] VITALS: BP 148/88
--- NOTE | 2018-11-25 14:44 | NUR ---
NO NOTED OR REPORTED VERBAL/PHYSICAL AGGRESSION-OVERHEARD YELLING ON TELEPHONE IN ROOM OTHERWISE SO FAR HAS BEEN POLITE AND COOPERATIVE. COMPLIENT WITH AM MEDS WITH MUCH ENCOURAGEMENT-REQUESTED AND RECEIVED NORCO5/325 AT 0815 AND 1400 FOR BACL PAIN RATED A 10 ON 1-10 SCALE-INITALLY ARGUMENTATIVE/RESISTIVE WITH TAKING INSISTING HE IS SUPPOSED TO GET CODEINE HOWEVER WAS COOPERATIVE WITH TRYING DOSE TO SEE HOW IT WORKS- APPROX 45 MIN LATER APPROACHED NURSING STATION "STATING I REALLY LIKE THAT NEW PAIN MEDICINE- AND RATES BACK PAIN 0 ON 1-10 SCALE
--- NOTE | 2018-11-26 03:04 | NUR ---
PT PERIODICALLY OUT IN DAY AREA. SMILING AND CORDIAL TOWARD PEERS, AND STAFF. TOOK HS MEDS PRESCRIBED INCLUDING PAIN MEDS FOR CHRONIC PAIN. SLEPT INTERMITTANTLY THROUGH THE NIGHT. UP AT 0230 AND RECEIVED PO IBUPROPHEN FOR PAIN. SEVERAL TIMES INCONTINENT OF URINE.
[2018-11-26 07:00] VITALS: BP 140/89
--- NOTE | 2018-11-26 08:39 | NUR ---
ADM NORCO 5MG 2 TABS PO FOR PAIN TO BACK AND LEGS. PT REFUSING DEPAKOTE ONE TAB AND PROSCAR. PT CHANGES SELF WHEN BRIEF WET. PT LIKES TO WEAR X2 PANTS AND X2 BRIEFS AT A TIME. PT WALKING WITH WALKER WITH STEADY GAIT, PT WALKS FAST WITH WALKER.
[2018-11-26 09:01] VITALS: BP 140/89
--- NOTE | 2018-11-26 16:34 | NUR ---
ADM NORCO 5MG 2 TABS PO FOR PAIN TO BACK AND LEGS. PT DIDN'T WANT TO DISCUSS PAIN LEVEL.
--- NOTE | 2018-11-26 21:25 | NUR ---
UPON ARRIVAL TO SHIFT PT WAS RETURNING PHONE TO DAY NURSES. WHEN TALKING WITH PT HE HAD POOR EYE CONTACT, BLUNTED AFFECT, GUARDED BEHAVIOR, BODY TENSE. PT DID ALLOW FOR ASSESSMENT. PT RETURNED TO HIS ROOM. PT WAS RESTING IN BED, PT STATED HE WAS DIZZY NOT FEELING WELL AND ONLY WANTED TO TAKE SOME OF HIS MEDICATION, PT TOOK DEPAKOTE AND 5MG OF FLUPHENAZINE. PT ACCEPTED HIS SNACKS. PT WAS CALM, PLESANT, AND HAD GOOD EYE CONTACT WHEN TALKING TO NURSE WHEN HE WAS IN HIS ROOM AND IN BED. PT AMBULATING WITH WALKER.
--- NOTE | 2018-11-26 23:03 | NUR ---
PT AWAKENED EASILY FROM SLEEP, PT STATED HE WAS GOING TO BE OK. PT ATE HIS HS SNACK.
--- NOTE | 2018-11-27 13:31 | NUR ---
ATTENDING SCHEDULED GROUPS AND COMPLIENT WITH TAKING PO MEDS {DID TAKE ONLY 1/2 OF AM DEPAKOTE STATING 2 TABS WAS "TOO MUCH" REQUESTED AND RECEIVED NORCO 5/325 2 PO AT 1000 FOR LOW BACK PAIN RATED A 9/10. INTERACTS WITH PEERS PLEASANTLY. USING ROLLER WALKER FOR AMBULATION AND GAIT IS STEADY WITH ASSISTIVE DEVICE. SOME NOTED GRANDIOSITY HE STATES HE NEEDS TO BE OUT OF HOSPITAL BECAUSE "I HAVE SO MUCH TO DO-I AM GOING TO BE ON THE RADIO"
[2018-11-27 19:00] VITALS: BP 104/49
--- NOTE | 2018-11-27 23:12 | NUR ---
NURSES NOTE - ASSUMED CARE OF PATIENT AT APPROXIMATELY 1915. THIS NURSE GREETED PATIENT WITH OFF GOING NURSE. PATIENT WAS IN BED WITH EYES CLOSED THAT OPENED SPONTANEOUSLY TO MY VOICE. UPON ATTEMPTING TO ASSESS PATIENT AND GIVE PATIENT MEDICATION, PATIENT BECAME BOISTEROUS AND REFUSING PHYSICAL ASSESSMENT OF PATIENT. AT FIRST PATIENT REFUSED MEDICATION, BUT THIS NURSE DISCUSSED THE BENEFITS OF TAKING MEDICATION. PATIENT THEN AGREED TO TAKE MEDICATION, BUT STATES 'IM ONLY TAKING THREE.' HE TOOK THE FULL FLUPHENAZINE DOSE, AND ONE HALF OF THE DEPAKOTE DOSE. PT THEN REFUSED TO SPEAK TO THIS RN. PATIENT HAS BEEN IN HIS ROOM ALL OF THE EVENING WITH NO INTERACTIONS WITH OTHER STAFF OR PEERS. HE DID NOT APPEAR TO BE IN MEDICAL DISTRESS, NOR WERE ANY VOICED. NURSING WILL MAINTAIN ALL PRECAUTIONS TO ENSURE SAFETY AT ALL TIMES.
[2018-11-28 09:07] VITALS: BP 139/74
--- NOTE | 2018-11-28 14:59 | NUR ---
WHITE, WELL NOURISHED MALE ARRIVED ON GU FROM [place] ON [facility]. HE IS AWAKE, ALERT AND ORIENTED TIMES 1 TO 2. HE FELL IN MAY AND HIT HIS HEAD. HE HAD A BRAIN BLEED AT THAT TIME. HE HAS MEMORY ISSUES. HE SAID SOMEONE ABOUT A YEAR AGO IN HIS LIFE BUT HE COULD NOT "REMEMBER WHO". DENIES A HISTORY OF SMOKING, DRINKING OR DRUGS. 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 HE STATES HE HAS GLASSES BUT THEY ARE CURRENTLY LOST. HE AMBULATES WITH A WALKER. HE WAS GIVEN A WALKER TO USE. HE HAS BEEN RESIDING IN [facility] IN [place], [place]. HE NORMALLY GOES TO [facility] BUT LAST NIGHT THEY TOOK HIM TO [facility] IN[facility]. HE HAS A PMHX OF AFIB, CHF, TYPE II DM, ARF. HIS BLOOD SUGAR AT [facility] ER WAS 121. WHILE IN ROUTE TO [facility] HE ASKED THE QUALITY ASSURANCE TECHNICIAN FOR A GUN, LATER DENYING. HE DID RECEIVE 5 MG OF ZYPREXIA OVERNIGHT AT [facility] FOR AGITATION. HE WAS COOPERATIVE WITH THE ADMISSION PROCESS BUT KEPT SAYING "CAN'T I JUST GO HOME". THE SHELTER BELIEVES HE MADE SI REMARKS BECAUSE HE DID NOT LIKE HIS CURRENT ROOMMATE AND THIS WAS HE WAY OF MOVING AWAY FROM THAT PERSON.
--- NOTE | 2018-11-28 16:03 | NUR ---
PT ALERT AND ORIENTED TIMES FOUR WITH BLUNTED AFFETCT. VSS, PT TOOK ALL OF MEDICATIONS BUT WOULD ONLY AGREE TO TAKE HALF OF DEPAKOTE DOSE, IS AWARE. PT DENIES SI/HI OR ANY VISUAL/AUDITORY HALLUCINATIONS. PT TOLERATES MEALS. PT UP WALKING AROUND THE UNIT PER WALKER. WILL CONTINUE TO MONITOR.
[2018-11-28 23:37] VITALS: BP 139/74
--- NOTE | 2018-11-29 03:38 | NUR ---
PT ISOLATING IN ROOM MOST OF THE EVENING AND TO THIS POINT THROUGH THE NIGHT. OUT FOR EVENING SNACK, REFUSED SCHEDULED MEDS, BUT TOOK HYDROCODE FOR BACK PAIN AT HS. OUT AT 0325 C/O PAIN AND RECEIVED IBUPROPHEN, AND RETURNED TO HIS ROOM.
[2018-11-29 08:00] VITALS: BP 125/81
--- NOTE | 2018-11-29 08:26 | NUR ---
ADM HYDROCODONE 5MG 2 TABS PO FOR PAIN TO LEGS AND ARMS. PT EATS BREAKFAST AND GOES BACK TO ROOM. PT WANTING NEW BRIEFS AND PANTS. PT WEARS X2 BRIEFS AT A TIME. PT UP WITH WALKER.
--- NOTE | 2018-11-29 09:30 | NUR ---
PT STATED HE FEELS HIS HEART JUMPING, ASSESSED HEART SOUNDED REGULAR RHYTHM. PT REQUEST EKG AT THIS TIME. PT KEEP ASKING ABOUT GETTING A EKG. PT LEAVING DINING ROOM. PT CALLED REC THERAPY A BITCH DUE TO REC THERAPY STATED HE DIDN'T PARTICIPATE IN GROUP, HE SAID I WAS HAVING PAIN.
[2018-11-29 09:34] VITALS: BP 125/81
--- NOTE | 2018-11-29 10:30 | NUR ---
SHOWED DR. MULLINS THAT EKG RESULTS, HE SAID TO LET HOSPITALIST KNOW.
--- NOTE | 2018-11-29 10:31 | NUR ---
REAMING MACHINE OPERATOR HERE TO SEE PT.
--- NOTE | 2018-11-29 10:55 | NUR ---
NOTIFIED DR. DANIELS ABOUT EKG RESULTS.
--- NOTE | 2018-11-29 12:07 | NUR ---
Date of Admission: 10/25/18 Date of Activity Therapy Assessment: 10/28/18 Activity Goal: Development of social and communication skills and boundaries to appropriately communicate frustration. Initial Goal: 1 Group activity/day Weekly progress towards goal: Did not achieve goals Group participation level: Moderate Behaviors observed: Patient has recently begun attending groups after a music incentive program initiated. Patient recieves 15 minutes of jazz music listening time for every group he attends and fully participates. Patient's participation has been moderate overall, requiring only ocassional redirection/refocusing. Plan: No change towards goal
--- NOTE | 2018-11-29 15:30 | NUR ---
[facility]. PT WAS DENIED MUSIC TODAY DUE TO CURSING AT REC THERAPY. PT DENIED CURSING AT THERAPIST. PT THEN YELLED AT DR AT [facility] AND HIT THE WINDOW AND PUMPING WALKER UP AND DOWN ON GROUND.
--- NOTE | 2018-11-29 15:38 | NUR ---
ADM HYDROCODONE 5MG 2 TABS PO FOR PAIN TO BACK AND ARMS.
--- NOTE | 2018-11-29 17:30 | NUR ---
PT UP OUT OF ROOM IN DINNING ROOM. PT ALLOWED THIS NURSE TO TAKE HIS BP AND TOOK HIS COREG.
[2018-11-29 23:04] VITALS: BP 138/81
--- NOTE | 2018-11-30 03:25 | NUR ---
PT IN ROOM MUCH OF THE EVENING AND NIGHT. TOOK PRESCRIBED MED AND HYDROCODONE FOR PAIN AT HS. REMAINED IN ROOM THROUGH THE NIGHT AND SLEPT WELL UNTIL 314, WHE HE ASKED FOR SOME IBUPROPHEN FOR PAIN, AND RETURNED TO HIS ROOM. CORDIAL AND COOPERATIVE DURING ALL INTERACTIONS WITH STAFF AND PEERS. SLEPT WELL.
[2018-11-30 09:27] VITALS: BP 139/78
--- NOTE | 2018-11-30 10:45 | NUR ---
COMPLIENT WITH ALL AM MEDS BUT REFUSED TO ATTEND AM GROUP-IRRITABLE/ABRUPT WITH [employer] SHOWMAN WHEN ENCORAGED TO ATTEND. DOES REPORT PAIN "WORSE" THIS AM AND REPORTS LOW BACK PAIN A 10 ON 1-10 SCALE. NORFABY 5/325 2 TABS PO PRN AT 0845 WITH VERBALIZED GOOD RESPONSE. REMAINS GRANDIOSE AT TIMES STATING TO THIS NURSE THE CARS ON [address]IGHW[address] OUTSAIDE HIS WINDOW WOULD COME TO "PAY ME RESPECT"
--- NOTE | 2018-11-30 11:07 | NUR ---
Followup: Continues to eat 100% of regular diet plus ensure enlive supplements. Wt went from 140 lb admit (10/25) to 151 lb (11/20), now 147 lb (11/27). No new nutrition interventions. Remains low nutrition risk
--- NOTE | 2018-11-30 17:22 | EKG ---
[address] [place] [address] ELECTROCARDIOGRAM REPORT Name: VALERIAKATYA Room #: 517-A ADM IN M.R.#: [id number] Admission: 10/25/18 Attend Phys: Michael Wasserman DO Discharge: Date of : 40 Report #: [id number] THIS REPORT FOR: //name// [facility] Test Date: 2018-11-29 Test Time: 10:31:46 Pat Name: KATYA SHAW Department: Room: 517 A Gender: M Order Entry Administrator: GERARDO : 1940 Requested By: Michael Wasserman Order Number: [id number] MD: Willis Mcdonnell Measurements Intervals Hiram Rate: 71 P: 52 MI: 184 QRS: 4 QRSD: 89 T: 55 QT: 364 QTc: 396 Interpretive Statements Sinus rhythm Low voltage, extremity leads ST elevation consider early repolarization Compared to ECG 10/27/2018 11:22:08 Sinus tachycardia is no longer present criteria for inferior infarct no longer present Electronically Signed On 11-30-2018 17:21:54 CDT by Willis Mcdonnell [email or web address] <ELECTRONICALLY SIGNED> By: Willis Mcdonnell MD, [facility] 11/30/18 1721 1031 1031 Willis Mcdonnell MD, [facility] /EPI
[2018-11-30 19:43] VITALS: BP 111/60
--- NOTE | 2018-11-30 23:32 | NUR ---
NURSES NOTE - KATYA IS ALERT AND ORIENTED X4, HE HAS BEEN CALM AND COOPERATIVE THIS EVENING. THIS NURSE GREETED PATIENT AND HE REPORTS THAT 'I AM SEDATED.' HE DID APPEAR WITH A TIRE AFFECT AND WAS IN BED WITH EYES OPEN. HE WAS NOT MED COMPLIANT, BUT REFUSED TO TAKE THE SPLIT PILL OF FLUPHENAZINE. HE DID REPORT HE C/O PAIN LATER IN THE EVENING WHICH PRN MEDICATION WAS GIVEN. PATIENT APPEARS TO BE ALERT OF TIMES WHEN HE CAN TAKE PRN PAIN MEDICATION. HE DENIES SI HI AND HALLUCINATIONS. HE DOES APPEAR TO HAVE GRANDIOSE BX AT TIMES. HE DENIED OTHER MEDICAL CONCERNS WITH NO S/S OF DISTRESS. NURSING WILL MAINTAIN Q12 CHECKS TO ENSURE SAFETY AT ALL TIMES.
--- NOTE | 2018-12-01 07:15 | NUR ---
ADM HYDROCODONE 5MG PO 2 TABS PO FOR PAIN TO BACK OF 10 ON 1-10 SCALE.
[2018-12-01 08:00] VITALS: BP 132/74
--- NOTE | 2018-12-01 08:00 | NUR ---
PT UP THIS AM WALKING WITH WALKER. PT STATED HE HAS PAIN TO BACK OF 10 ON 1-10 SCALE. PT WANTING PAIN MED.
[2018-12-01 09:03] VITALS: BP 132/74
--- NOTE | 2018-12-01 12:50 | NUR ---
ADM IBUPROPHEN 400MG PO FOR PAIN TO BACK OF 7 ON 1-10 SCALE.
--- NOTE | 2018-12-01 15:12 | NUR ---
ADM HYDROCODONE 5MG 2 TABS PO FOR PAIN TO BACK OF 10 ON 1-10 SCALE. PT VERY HAPPY ABOUT GETTING TO LISTEN TO JAZZ MUSIC THIS AFTERNOON.
[2018-12-01 19:38] VITALS: BP 108/68
--- NOTE | 2018-12-01 21:12 | NUR ---
PATIENT BECAME BELIGERENT DURING MEDICATION ADMINISTRATION PASS; HE STATED 'IM NOT TAKING THAT SHIT, QUINTIN ALREADY TAKEN IT THREE TIMES TODAY!' THIS NURSE ATTEMPTED TO CALM PATIENT DOWN INSISTING THAT HE DID NOT TAKE THREE DOSES, OFFERED TO SHOW AND TRANSCRIPT MAR FOR PATIENT, WHOM REFUSED. PT STATED 'FUCK YOU MOTHER FUCKER AND GIVE ME THE DAMN SHOT.' SECURITY ARRIVED FLUPHENAZINE IM GIVEN ORDERED.
--- NOTE | 2018-12-01 23:09 | NUR ---
NURSES NOTE - KATYA IS ALERT AND ORIENTED X4, THIS EVENING HE HAS BEEN UNABLE TO CONTROL BX EVEN WITH STAFF REDIRECTION. HE APPEARS WITH A BLUNTED TENSE AFFECT. THIS RN OFFERED MEDICATION AND PATIENT BECAME TO USE VULGAR LANGUAGE BUT DID STATE 'ILL TAKE THE SHOT' THIS NURSE EXPLAINED ALL MEDICATION THAT WOULD BE GIVEN TO PATIENT, BUT PT CONTINUED TO REFUSE. HE CONTINUED TO BE DEFIANT TOWARDS STAFF. THIS NURSE OFFERED QUIET TIME TO PATIENT. HE DID NOT REPORT ANY MEDICAL DISTRESS, AND DID NOT APPEAR TO DO SO. NURSING WILL MAINTAIN ALL PRECAUTIONS TO ENSURE SAFETY AT ALL TIMES.
[2018-12-02 07:30] VITALS: BP 139/90
--- NOTE | 2018-12-02 07:30 | NUR ---
PT OUT IN DINNING ROOM THIS AM. PT DENIES ANY PAIN AT THIS TIME. PT USING WALKER. PT SHUFFLING ON RT FOOT, SEEMS THAT SHOE IS RUBBING ON HEEL. PT LUNGS CLEAR AND ON ROOM AIR.
[2018-12-02 08:44] VITALS: BP 139/90
--- NOTE | 2018-12-02 08:59 | NUR ---
ADM IBUPROPHEN 400MG FOR SORENESS TO BACK.
--- NOTE | 2018-12-02 09:14 | NUR ---
GIVING PT MEDS THIS AM, HE STATED THAT HE IS NOT GOING TO TAKE ALL THESE MEDS. HE THEN PUT MEDS IN HIS HAND AND TOOK ALL MEDS. PT LYING DOWN IN BED AFTER BREAKFAST.
--- NOTE | 2018-12-02 14:07 | NUR ---
ADM NORCO 5MG 2 TABS PO FOR PAIN TO BACK.
--- NOTE | 2018-12-02 15:21 | NUR ---
PT HAS BEEN COOROPERATIVE TODAY. PT ENJOYED JAZZ MUSIC IN ROOM.
--- NOTE | 2018-12-02 17:11 | NUR ---
ADM IBUPROPHEN 400MG 2 TABS PO FOR PAIN TO BACK.
[2018-12-02 22:40] VITALS: BP 109/62
--- NOTE | 2018-12-03 03:42 | NUR ---
PT IN AND OUT OF ROOM THIS PM. INTERACTING APPROPRIATLY WITH STAFF AND PEERS. HAD HS SNACK AND TOOK MEDS PRESCRIBED WITH HYDROCODONE FOR PAIN. WATCHED A MOVIE WIT SEVERAL OTHER PATIENTS, THEN WENT TO BED AND HAS SLEPT WELL TO THIS POINT IN THE AM. ANIMATED AND CORDIAL ALL EVENING.
[2018-12-03 07:30] VITALS: BP 136/77
[2018-12-03 09:11] VITALS: BP 136/77
--- NOTE | 2018-12-03 10:22 | NUR ---
ASSUME PT CARE AT 0715. VSS ON RA. PT OUT IN DINNING ROOM THIS AM. PT CALM AND COOPERATIVE. DENIES SI, HI, HALLUCINATION.C/O BACK PAIN. HAD PRN HYDROCODONE AROUND 0630. DOESN'T FEEL RELIEF, PRN PAIN TOPICAL OFFERED. FEELS BETTER.PT USING WALKER. PT SHUFFLING ON RT FOOT, SEEMS THAT SHOE IS RUBBING ON HEEL. PT LUNGS CLEAR AND ON ROOM AIR. HAD GOOD APPETITE. REASSESSMENT PER CHART. HAD BM THIS AM. HE SAID HE HAS BM EVERYDAY. DR. DANIELS MADE ROUND. NOTICED DOCTOR ABOUT PT HAD LOW B/P AT TIME. OBTAINED ORDER FOR PARAMETER WITH CARVEDILOL AND RECEIVED VERBAL ORDER FOR VOLTAREN GEL 4GM BID. WILL CONTINUE TO MONITOR.
[2018-12-03 19:48] VITALS: BP 119/65
--- NOTE | 2018-12-03 23:58 | NUR ---
NURSES NOTE - KATYA IS ALERT AND ORIENTED X4, HE HAS BEEN CALM AND COOPERATIVE THROUGHOUT THE ENTIRE EVENING, HE HAS BEEN MED COMPLIANT, ALTHOUGH DID REQUEST VOLTAREN GEL AT A LATER TIME. THIS NURSE AGREED WITH PATIENT. HE DID EARN THIRTY MINUTES OF JAZZ MUSIC LISTENING FOR GOOD BX. HE APPEARS WITH A EUTHYMIC AFFECT AND IS FOLLOWING DIRECTIONS WITH EASE. HE DID NOT REPORT MEDICAL PROBLEMS OR EXTREME PAIN, HE DID REPORT CHRONIC BACK PAIN TO WHICH THIS NURSE ADMINISTERED HYDROCODONE ORDERED. WILL MAINTAIN ALL PRECAUTIONS TO ENSURE SAFETY AT ALL TIMES.
[2018-12-04 09:55] VITALS: BP 124/81
--- NOTE | 2018-12-04 11:44 | NUR ---
PATIENT HAS BEEN UP AND OUT ON THE UNIT, AMBULATES WITH ASSIST OF ROLLER WALKER. PATIENT TOOK ALL MORNING MEDICATION WHOLE WITHOUT DIFFICULTY. HE IS EATING MEALS AND DRINKING FLUID WELL. PATIENT DENIES SUICIDAL AND HOMOCIDAL IDEATION. PATIENT STATES HIS GOAL TODAY IS "TO LISTEN TO MUSIC". HIS CONCERN IS TO "GET OUT OF THIS PLACE". PATIENT DENIES AUDITORY/VISUAL HALLUCINATION. WHEN ASKED ABOUT DEPRESSION AND ANXIETY, PATIENT STATES "OFCOURSE I AM DEPRESSED BECAUSE I AM HERE". AT 1145HOURS, PATIENT APPROACHED THIS RN AND ASKED "WHAT MEDICATION IS DUE FOR ME NOW?" WHEN CHECKED, THERE WAS NO MEDICATION DUE TILL 1700HOUR. PATIENT NOTIFIED, AND HE BECAME IRRITABLE AND STATES " CAN I GET ANOTHER NURSE" AND PATIENT REFERRED TO THE CHARGE NURSE. PATIENT IS CURRENTLY CALM, SITTING QUIETLY IN DAY ROOM, WILL MONITOR BEHAVIOR, AND MONITOR FOR SAFETY.
[2018-12-04 19:05] VITALS: BP 98/60
--- NOTE | 2018-12-04 21:43 | NUR ---
NURSES NOTE - KATYA IS ALERT AND ROEINTED X4, HE HAS BEEN CALM AND COOPERATIVE THIS EVENING WITH NO BEHAVIORAL OUTBURSTS. HE REPORTS THAT HE IS LOOKING FORWARD TO LISTENING TO JAZZ AND WILL MAINTAIN GOOD BX TO ENSURE HE CAN RECEIVE HIS INCENTIVE. HE APPEARS WITH A BRIGHT AFFECT, INTERACTING WITH OTHERS WELL. WALKS WITH WALKER AND A STEADY GAIT. HE DENIES SI HI AGGRESSION, DEPRESSION, ANXIETY. HE DENIES MEDICAL CONCERNS WITH NO S/S OF DISTRESS. NURSING WILL MAINTAIN ALL PRECAUTIONS TO ENSURE SAFETY AT ALL TIMES.
--- NOTE | 2018-12-05 06:38 | NUR ---
PATIENT SLEPT 5.2 HOURS
[2018-12-05 09:20] VITALS: BP 141/89
--- NOTE | 2018-12-05 10:12 | NUR ---
Has been up for breakfast, he is alert and oriented x 4, he has not shown any behavioral outbursts, he is calm and cooperative, very pleasant with a bright cheerful affect, we talked about the and district and he started to reflect on his younger days in that area, he took his meds without issues, had Tylenol for pain this a.m and has returned to his room, stated he was just going to rest for the day. Continue to monitor for safety.
[2018-12-05 19:44] VITALS: BP 123/76
[2018-12-05 22:17] VITALS: BP 123/76
--- NOTE | 2018-12-06 00:59 | NUR ---
PATIENT UP IN DAYROOM THIS EVENING FOR HIS HS SNACK. HE IS C/O LOWER BACK PAIN. STATES HE WORRIES THAT IT MAY BE HIS LIVER OR HIS KIDNEYS. HE RULED OUT LIVER SINCE THE PAIN IS NOT ON THE RIGHT SIDE. HE POINTS TO HIS LOWER BACK AREA FOR PAIN 8/10. DICLOFENAC GEL APPLIED TO AREA AND PATIENT GIVEN HYDROCODONE PRN MED. HE WENT BACK TO ROOM AND HAD PAIN RELIEF WITHIN 40 MINUTES. PATIENT SLEPT FOR AWHILE AND IS BACK UP LISTENING TO [employer] MUSIC ON THE IPAD. PATIENT HAS BEEN CALM AND COOPERATIVE. HE SPOKE WITH HIS SON ON THE PHONE EARLIER IN THE EVENING. HE STATES WHEN HE CAME FROM HIS ROOM FROM SLEEPING THAT HE IS FINDING HIMSELF ANSWERING QUESTIONS IN HIS SLEEP OUT LOUD. STATES HE DOESN'T KNOW WHY HE IS DOING THIS. PATIENT A/O X 3 TO 4. CONTINUING TO MONITOR.
[2018-12-06 08:54] VITALS: BP 139/85
--- NOTE | 2018-12-06 09:19 | NUR ---
Has been up in dayroom, he ate well and is calm and cooperative with medications. He has received pain medication this a.m for back pain, he has been in bed since taking his pain medications. No behavioral issues seen this a.m. Continue to monitor for safety.
--- NOTE | 2018-12-06 12:28 | NUR ---
Date of Admission: 10/25/18 Date of Activity Therapy Assessment: 10/28/18 Activity Goal: Development of social and communication skills and boundaries to communicate frustration Initial Goal: 1 Group activity/day Weekly progress towards goal: On track Group participation level: Moderate Behaviors observed: Patient's participation was fairly consistent in beginning of week, though has since dwindled. Patient participated in groups at moderate to full level to achieve music incentive, though with decline in participation, pt has not asked for music reward. Plan: No change towards goal
[2018-12-06 22:18] VITALS: BP 139/85
--- NOTE | 2018-12-07 00:36 | NUR ---
PATIENT HAS BEEN IN HIS ROOM SINCE BEGINNING OF THIS SHIFT AT 1900. HE HAS BEEN SLEEPING OR SITTING UP IN HIS CHAIR. HE HAS TAKEN HIS MEDS WITHOUT INCIDENT. HE HAS BEEN CALM AND COOPERATIVE. PATIENT IS UP TO BATHROOM BY SELF. HE IS INCONTINENT AT TIMES AND WEARS A DISPOSABLE BRIEF. PATIENT DID NOT WANT A HS SNACK. IT WAS GIVEN IN REPORT THAT HE WOULD NOT ATTEND GROUPS TODAY SO HIS JAZZ MUSIC PRIVILEDGES HAVE BEEN REVOLKED FOR TONIGHT. PATIENT DENIES BACK PAIN. HIS LAST DOSE OF HYDROCODONE WAS AROUND 1500. WILL CONTINUE TO MONITOR.
--- NOTE | 2018-12-07 01:34 | NUR ---
PATIENT UP TO NURSE'S STATION STATING THAT HIS BACK IS HURTING AND HE IS WANTING TYLENOL # 4. HE ALSO REQUESTED SOME NEW WASH CLOTHS. TOOK TYLENOL 650MG TO PATIENT AND HE STATES THAT THESE ARE NOT THE RIGHT PILLS. HE SHOWS ME A MED SHEET FROM A PREVIOUS HOSPITAL VISIT AND POINTS TO THE TYLENOL HE WANTS. IT SAYS TYLENOL 650MG. I EXPLAINED THAT THIS IS THE EXACT SAME THING. HE TOOK THE MED. I TOLD HIM TO GIVE IT SOME TIME AND IF IT WASN'T WORKING WE WOULD SEE WHAT WE COULD DO. HE CAME BACK 10 MINUTES LATER AND STATES IT IS NOT WORKING. I TOLD HIM THAT HE HAD NOT GIVEN IT ENOUGH TIME. HE STATES THAT COFFEE SOMETIMES HELPS IT TO KICK IN. GAVE PATIENT A SMALL CUP OF DECAF COFFEE AND HE DRANK IT AND WENT BACK TO ROOM. WILL CONTINUE TO MONITOR.
--- NOTE | 2018-12-07 03:04 | NUR ---
Patient reported to nursing station reporting back pain rated 5/10. Reports that PRN Tylenol received over 1 hour ago was not effective in managing pain. Nurse reported that he could have PRN Ibuprofen or PRN Hydrocodone. Patient requested for PRN Hydrocodone. Patient provided medication with a cup of water. Patient requested to listen to jazz music. Patient was told that he could not listen to music because 1) it is too late and 2) because he lost his music privileges for the day. Patient asked why and it was explained that he did not attend all groups. Patient became a little frustrated but was able to control his emotions. Patient stated he would attend all groups today so he can listen to music tonight. Patient has gone back to bed at this time.
[2018-12-07 08:36] VITALS: BP 131/77
--- NOTE | 2018-12-07 08:56 | NUR ---
Followup: Continues to eat 100% of meals consistently and drinking 2-3 Ensure Enlive per day. Favorable wt gain throughout admit, now 153 lb and healhier BMI of 20.2. Will reduce Ensure Enlive to lunch and dinner only. Low nutrition risk
--- NOTE | 2018-12-07 12:06 | NUR ---
PT IS ARGUMENTIVE TODAY. PT COMPLAINED OF LOW BACK PAIN STATED "MY PAIN IS AT 100" HYDROCODONE X 2 TABS GIVEN W/I 1 HR PT CAME TO THE NURSE STATION AND STATED HE WANTED SOMETHINF FOR PAIN, EXPLAINED TO PT HE HAD GOT SOMETHING FOR PAIN 1 HR PRIOR. OFFERED PT IBUPROFEN AND HE REFUSED. [id number] PT WAS ARGUING WITH AND RAISING HIS VOICE. PT EVENTUALLY WALKED AWAY W/O FURTHER INCIDENCE. PT AT 12:15 IS IN DINING ROOM EATING LUNCH QUITELY. WILL CONT POC.
--- NOTE | 2018-12-07 16:34 | NUR ---
SW spoke with tp concerning him listening to jazz. Pt stated that he did come to morning group in stayed for 15 minutes. Pt was cooperative with speaking with me concerning how he is feeling, and his upcoming guardianship hearing. SW provided ot an opportunity to listen to music in his room to self-deescalate. SW will follow-up with pt.
--- NOTE | 2018-12-08 00:26 | NUR ---
NURSES NOTE - KATYA IS ALERT AND ORIENTED X4, HE HAS BEEN CALM AND COOPERATIVE THIS SHIFT WITH ALL STAFF AND OTHER PATIENTS. HE SPENT MOST OF THE EVENING IN THE DAY ROOM WATCHING THE [employer] GAME. HE REPORTS TO THIS NURSE THAT HE IS LOOKING FORWARD TO THE COURT DATE FOR GUARDIANSHIP BECAUSE PT BELIEVES HE CAN EASILY CARE FOR HIMSELF. THIS NURSE AND PATIENT DISCUSSED PROPER BX ON THE UNIT TO EARN MUSIC TIME. PER PREVIOUS NOTES HE DID JUST THAT AND WAS ALLOWED TO LISTEN TO JAZZ FOR APPROXIMATELY THIRTY MINUTES. AFTER PATIENT COMPLETED LISTENING TIME, HE LAYED IN BED WITH EYES CLOSED, RR EVEN AND UNLABORED WITH NO S/S OF DISTRESS. NURSING WILL MAINTAIN ALL PRECAUTIONS TO ENSURE SAFETY AT ALL TIMES.
[2018-12-08 09:32] VITALS: BP 150/91
--- NOTE | 2018-12-08 11:03 | NUR ---
Has been in room except for his meals, he complains of back pain and gets medicated with prn's, he eats well and is cooperative today. He has not attended groups and has not gotten music time due to not participating. He denies SI/HI and AVH. Continue to monitor for safety.
--- NOTE | 2018-12-08 11:22 | NUR ---
David did not attend 0900 recreational therapy group this morning 12/03/18.
[2018-12-08 19:19] VITALS: BP 155/90
--- NOTE | 2018-12-08 22:48 | NUR ---
NURSES NOTE - KATYA IS ALERT AND ORIENTED X4, HE HAS BEEN CALM AND COOPERATIVE THIS EVENING WITH STAFF AND PEERS, HE APPEARS WITH A EUTHYMIC AFFECT, AND HAS NEEDED NO REDIRECTION THIS EVENING. HE DOES STRESS TO THE POINT HE IS LOOKING FORWARD TO DISCHARGE.
--- NOTE | 2018-12-09 07:54 | NUR ---
Patient up at nurses station cursing at multiple nurses (ethan wall, etc.) and this HOLISTIC SPECIALIST, when redirected that he could not recieve his medication until its scheduled time. HOLISTIC SPECIALIST encouraged David to remain calm and that his nurse would be with him shortly. David's agitation became increasingly escalated at point. Pt continues to stand at nursing station door cursing.
[2018-12-09 07:59] VITALS: BP 136/96
--- NOTE | 2018-12-09 08:55 | NUR ---
0700: Report rec from noc shift, care assumed. 0730: Ambulatory with walker in room and in hill to , gait noted with impairment, slight mis-step noted. Oriented to name, place and time. Rates back pain "10" on 0-10 numeric pain scale, pt offered choice of Ibuprofen, Tylenol or Hydrocodone, pt request Hydrocodone for pain, medication given as requested. Feeds self, discontent from pt due to change in Ensure servings by , Nini Guajardo here to see pt, gives verbal permission to this nurse to serve pt 1 Ensure supplement. Takes meds whole w/o difficulty. Cooperative with staff, compliant with meds. 0900: Refused therapy goal group, remains in room.
--- NOTE | 2018-12-09 15:41 | NUR ---
David was encouraged to participate in 1430 recreational therapy group but declined and did not attend.
[2018-12-09 16:31] VITALS: BP 139/85
[2018-12-09 19:26] VITALS: BP 122/82
[2018-12-10 00:58] VITALS: BP 122/82
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
[2018-12-10 07:10] VITALS: BP 120/80
--- NOTE | 2018-12-10 10:50 | NUR ---
MARIANN and nurse Her met with the pt to discuss the rules of recieving his music priviledges. SW explained that the pt will not be allowed to listen to music if he disrespect nursing staff or FISHER CR[employer]. SW explained that pt will not be allowed to listen to music if he does not attend 2 out 4 group session. SW provided him the times of all groups. Pt stated that he understand he will be attentive to the groups times, and respectful to nursing staff. SW will follow-up with pt concerning groups, and his behaviors.
--- NOTE | 2018-12-10 11:43 | NUR ---
Encourgaed patient to attend 0900 recreational therapy group. Patient did not attend. Patient encouraged to attend 1430 group.
--- NOTE | 2018-12-10 14:43 | NUR ---
Assumed pt care this am,vs stable. Pt refuses to join in any group activity. Pain has been verbalized and no relirf was verbalized even after a lidocaine patch has been placed, pain is chronic d/t/ metal fragments still in the body. Pt would request for more coffee after meals, informed pt was iinformed he cannot have any since it is not time and he did not participate in hte activities. Pt was disapointed and spent more time in his room.
[2018-12-10 19:18] VITALS: BP 155/87
[2018-12-10 23:01] VITALS: BP 155/87
--- NOTE | 2018-12-11 03:49 | NUR ---
PT IN AND OUT OF ROOM EARLY IN THE EVENING. PLEASANT AND COOPERATIVE. C/O BACK PAIN. IBUPROFEN GIVEN WITH POSITIVE RESULTS. TOOK HS MEDS ORDERED. OUT OF ROOM AT 2330, C/O PAIN IN BACK, HYDROCODONE GIVEN, AND PT RETURNED TO ROOM AND HAS SLEPT WELL THROUGH THE NIGHT.
[2018-12-11 06:48] VITALS: BP 157/92
--- NOTE | 2018-12-11 10:14 | NUR ---
Assumed pt care this am, pt was at the dining room early, when trays were being given out US just said excuse me, the pt snapped back and became verbally abusive to her. Pt felt he was being accused when he wasnt, spoke to the pt til he calmed down. Pt did not participate in the group activities even after encouragement and reminded the pt that his music and other priviledges are taken away. POC being followed
[2018-12-11 20:12] VITALS: BP 109/70
--- NOTE | 2018-12-12 02:13 | NUR ---
ASSUMED CARE FROM DAY SHIFT, PT IN DAYROOM TALKING WITH OTHER PATIENTS APPEARS CALM AND COOPERATIVE, TOOK MEDICATON PRESCRIBED. CONTINUE TO C/O BACK PAIN MEDICATION GIVEN THROUGHOUT THE NIGHT, PT WALKING WITH WALKER WELL. WILL CONTINUE WITH CURRENT PLAN OF CARE AND WILL REPORT CHANGES OR ABNORMAL FINDINGS.
[2018-12-12 09:01] VITALS: BP 128/90
--- NOTE | 2018-12-12 11:27 | NUR ---
CALM, COOPERATIVE. MEDICATED FOR LUMBAR BACK PAIN ORDERED. TAKES ALL MEDICATIONS. AMBULATING WITH WALKER, GAIT STEADY. APPETITE BRISK. WILL CONTINUE TO MONITOR.
[2018-12-12 19:34] VITALS: BP 132/90
--- NOTE | 2018-12-12 21:32 | NUR ---
PT AMBULATING WITH WALKER. PT WATCHED JAZZ ON IPAD, HE DID ATTEND GROUPS. PT COMPLIANT WITH MEDS AND HS SNACK. PT WEARING 2 PULLUPS, REMAINS INCONTINENT BUT IS SELF CHANGING. PT REQUESTED AT 2130 TO CALL SONS FOR CLOTHING REQUEST, PT ASKED TO WAIT UNTIL AM. PT DID NOT HAVE AN OUTBURST BUT SHUFFLED TO HIS ROOM IN A FAST PACE AND SLAMMED DOOR. PT HAD PRN X 2 FOR BACK PAIN, COMPLIANT WITH VOLTAREN OINT.
[2018-12-13 08:34] VITALS: BP 138/96
--- NOTE | 2018-12-13 10:57 | NUR ---
In bed resting. Cooperative. Orientated to person and place but not to time. States pain improved after PRN meds. Difoclinec and lidocaine patch applied. Took oral meds without difficulty. Cooperative with exam except for . Two pairs of briefs in place. Refuses to go to AM group.
--- NOTE | 2018-12-13 11:28 | NUR ---
Date of Admission: 10/25/18 Date of Activity Therapy Assessment: 10/28/18 Activity Goal: Development of social and communication skills and boundaries to communicate frustration Initial Goal: 1 Group activity/day Weekly progress towards goal: Did not achieve goals Group participation level: Minimal Behaviors observed: Patient's participation in groups has declined since last progress note. Patient has displayed some verbal frustration as well as expressed high level of pain - both hindering his participation. Patient has had loss of music privilages d/t this. Plan: No change towards goal
--- NOTE | 2018-12-13 15:03 | NUR ---
David did not participate in the 0900 or 1400 recreational therapy groups today.
--- NOTE | 2018-12-13 20:57 | NUR ---
PT RESTING IN BED UPON ARRIVAL TO SHIFT. PT ASKING WHY HE MUST REMAIN ON FREQUENT CHECKS, PT EXPLAINED EVERYONE IS AND THAT ON ROOMING HOUSE INSPECTOR WE KNOW THAT HE IS USUALLY IN BED, DAY ROOM OR TALKING WITH STAFF, PT DID NOT BECOME AGIATED OR UPSET WITH THIS CONVERSATION. PT COMPLIANT WITH MEDS AND HS SNACK. PRN X 2 FOR BACK PAIN. PT SMILING, GOOD EYE CONTACT, AMBULATING WITH WALKER, AT TIMES SHUFFLES WHILE HE WALKS. PT STATED THAT HE COULD NOT USE IPAD FOR MUSIC BECAUSE HE DID NOT ATTEND HIS GROUPS DURING THE DAY. PT CONTINUES TO WEAR TWO BRIEFS AND IS INCONTINENT BUT CHANGES HIS OWN BRIEFS AND PANTS, BUT ASKS FOR ASSISTANCE WHEN NEEDED. PT TALKED WITH STAFF THAT HE HAS [address].
--- NOTE | 2018-12-14 00:51 | NUR ---
PT AWAKE UNTIL 2300 WENT TO BED, PT BACK AWAKE AT 0100 TO WATCH TV.
--- NOTE | 2018-12-14 07:14 | NUR ---
Nutrition Follow Up: Continues to eat 95-100% of all meals and drinking 100% of Ensure Enlive as ordered BID. Only a 1# wt difference (increase) in the last week. At 153# a week ago, now weighing 154# per 12/11 weigh in. Overall still up +14# since 10/25 admit. BMI remains much healthier at 20.4 kg/m2. No new nutrition concerns and no new recommendations. Continues as low nutrition risk.
[2018-12-14 08:45] VITALS: BP 119/74
--- NOTE | 2018-12-14 09:06 | NUR ---
07: Report rec from noc shift, care assumed. [id number]: Resting in bed with eyes closed, arouses readily to verbal stimuli, refuses VS, states "Leave me alone I'm sleeping." 829: Ambulatory with walker to , refused VS and a.m. meds. Eats a.m. meal and returned to room, refused to attend 0900 therapy group.
--- NOTE | 2018-12-14 15:16 | NUR ---
Pt had visit from his managing attorney Isiah Wallace on today concerning his upcoming court date.
[2018-12-14 19:46] VITALS: BP 123/64
--- NOTE | 2018-12-14 22:12 | NUR ---
Care assumed of patient at 1915: Patient up in day room watching the baseball game with peers this evening. Patient pleasant and cooperative. Appropriately interacting with staff and peers. Patient alert and oriented x4. No agitation or irritable behaviors observed. Patient ate 100% HS snack. Took HS medication without difficulty. Denies SI/HI/AH/VH. No s/s of delusional or paranoia behaviors. Patient reported pain rated 7/10 to lower back. Patient provided PRN Ibuprofen and scheduled Diclofenac applied to back. Patient is resting quietly in bed at this time.
--- NOTE | 2018-12-15 12:59 | NUR ---
0700: Report rec from noc shift, care assumed. [id number]: Ambulatory to DR, uses walker for assistance, gait slow, deviates on Rt foot/leg. Sits at table alone in DR, feeds self, appetite good, takes meds whole w/o difficulty, cooperative with staff, no verbal outbursts @ this time.
[2018-12-15 19:44] VITALS: BP 116/70
[2018-12-15 23:49] VITALS: BP 116/70
--- NOTE | 2018-12-16 01:17 | NUR ---
PATIENT STARTED FROM 1900 TILL NOW STATING THAT HE NEEDED PAIN MEDS. STATES HE IS HURTING AT A 9/ 10. PATIENT DID NOT WANT TO TAKE LYRICA AT BECAUSE HE DIDN'T THINK IT WOULD HELP HIM. I EXPLAINED TO HIM THAT HE HAD TAKEN IT EARLIER IN THE DAY AND HE TOLD THE DAY NURSE THAT IT "SNOWED HIM OVER." HE COMPLAINED AND SAID, "IT WON'T WORK." HE TOOK THE PILL AND THEN ASKED WHEN HE COULD HAVE A HYDROCODONE. I TOLD HIM HE HAD TO WAIT TILL IT WAS DUE WHICH WAS IN 45 MINUTES. I REMOVED HIS LIDOCAINE PATCH FROM HIS BACK AND RUBBED IN THE DICLOFENAC CREAM ON THE AREA HURTING AT LOWER BACK. HE CAME OUT TO THE DAYROOM 45 MINUTES LATER AND SAT WATCHING THE [employer] GAME ON TV. HE SAID HE NEEDED THE HYDROCODONE. HE STATES HIS PAIN IS STILL AT 9 LEVEL. HYDROCODONE GIVEN. AN HOUR LATER HE CAME AND SAID HE NEEDS A TYLENOL. SOON I GAVE HIM THE TYLENOL HE LAUGHED AND SAID THIS IS WORKING. " I TOLD YOU THIS WOULD WORK!" HE HAS BEEN WALKING AROUND THE UNIT FROM BEDROOM TO DAYROOM SMILING AND LOOKING RELAXED AND HAPPY. PATIENT SITTING IN DAYROOM NOW.
[2018-12-16 09:20] VITALS: BP 139/87
[2018-12-16 09:33] VITALS: BP 139/87
[2018-12-16 10:27] VITALS: BP 139/87
--- NOTE | 2018-12-16 12:32 | NUR ---
I noticed that David's room door was closed, I opened the door. David came out of his room yelling about wanting the door closed. I explained to him that we had to have the door open. He kept yelling at me, he called me a bitch and picked up his walker and slammed it on the floor. I asked him not to yell at me. He said "what you gonna do about it bitch." I told him the converstation was over and I walked away.
--- NOTE | 2018-12-16 12:42 | NUR ---
ASSUMED CARE AT 0700 THIS MORNING. PT. WAS ON THE UNIT FOR BREAKFAST. HE INITIALLY REFUSED HIS VITAL SIGNS THIS MORNING, BUT DID GET THEM LATER. HE TOOK HIS MEDICATIONS WITHOUT DIFFICULTIES. HE REFUSED MORNING GROUP, INSTEAD SPENT THE TIME BETWEEN MEALS IN HIS ROOM. HE ALOWED VANESSA TO COME IN AND TALK TO HIM ABOUT HIM NOT WANTING GABAPENTIN ANYMORE HE STATES IT IS NOT EFFECTIVE ON HIS PAIN. VANESSA STATED SHE WOULD STOP THE MEDICATION AND CHANGE HIS PAIN MED BACK TO 10 MG UP FROM 5 MG. AT NOON, THIS RN TOLD THE PT. THE TRAYS WERE UP FOR LUNCH. HE INITIALLY REFUSED IT THEN DID COME ONTO THE UNIT FOR THE SUPPLEMENTAL DRINK AND LUNCH. WHEN THE NURSE INTENSIVE CARE SPECIALIST CAME ONTO THE UNIT AND UNLOCKED HIS DOOR, HE BECAME UPSET WITH THIS ACTION AND CAME ONTO THE UNIT TO YELL AT HER (SEE HER NOTE). PT. RETURNED TO HIS ROOM AFTER HE YELLED AT THE NURSE INTENSIVE CARE SPECIALIST.
[2018-12-16 17:40] VITALS: BP 145/99
[2018-12-16 20:02] VITALS: BP 173/51
[2018-12-16 23:13] VITALS: BP 144/95
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
[2018-12-17 08:20] VITALS: BP 142/92
[2018-12-17 09:47] LABS: HEMATOCRIT 34.6 % (42.0-52.0); HEMOGLOBIN 11.2 gm/dL (14.0-18.0); MCH 29.2 pg (26.0-34.0); MCHC 32.5 g/dL (28.0-37.0); RBC 3.84 mil/uL (4.50-6.00); WBC 5.5 thou/uL (4.0-11.0)
[2018-12-17 10:05] LABS: ALBUMIN 3.2 g/dL (3.4-5.0); CALCIUM 9.2 mg/dL (8.5-10.1); CREATININE 0.9 mg/dL (0.7-1.3); MAGNESIUM 1.8 mg/dL (1.8-2.4); POTASSIUM 3.6 mmol/L (3.5-5.1); TOTAL BILIRUBIN 0.5 mg/dL (<0.1-1.0); TOTAL PROTEIN 6.6 g/dL (6.4-8.2)
--- NOTE | 2018-12-17 15:10 | NUR ---
ASSUMED CARE OF PATIENT AT 0700 THIS MORNING. PATIENT FOUND TO BE SLEEPING IN ROOM - AWOKEN FOR BREAKFAST. PATIENT AGREEABLE. STATED PAIN IN BACK FAIR - GIVEN PRN HYDROCODONE WITH HIS AM MEDICATIONS. LIDOCAINE PATCH ON LOWER BACK PLACED. PATIENT ISOLATES TO ROOM - DID NOT PARTICIPATE IN GROUPS. APPROACHED NURSING STATION AGAIN AT 1100 AND GIVEN TYLENOL TO AID ONCE AGAIN WITH DISCOMFORT. APPEARS MEDICATIONS DOES NOT ALLEVIATE PAIN FOR VERY LONG. AWOKEN FOR LUNCH AT 1230. APPETITE GOOD. AMBULATES AROUND WITH WALKER. AFTERNOON PROGRESSED BECAME MORE IRRITABLE - EVIDENTLY BECAUSE PAIN STILL APPARENT AND UNABLE TO HAVE ADDITIONAL MEDICATION TILL 1500. MUMBLED THAT HYDROCODONE SHOULD BE TWO PILLS, WANTED TO DISCUSS WITH DOCTOR. PATIENT EASILY GETS AGITATED WHEN NEEDS NOT ADDRESSED HE FEELS SHOULD BE. RELATES TO CERTAIN STAFF MEMBERS BETTER THAN OTHERS AND BEHAVIOR REFLECTS THIS.
[2018-12-17 19:33] VITALS: BP 132/76
--- NOTE | 2018-12-17 20:12 | NUR ---
PT'S NEPHEW, JOSEF CARRILLO CAME IN AND DROPPED OFF 2 BLACK DRESS SHIRTS, A PAIR OF BLACK SOCKS, AND HAIR TEXTURIZER SPRAY THAT PATIENT HAD CALLED AND ASKED HIM TO REFRIGERATION SUPERVISOR FOR HIM FOR COURT ON 12/21. DID NOT ALLOW NEPHEW TO SEE PATIENT SINCE AFTER VISITING HOURS. DID LET PATIENT CALL AND THANK HIM. CLOTHES WERE TRIED ON FOR FIT AND HUNG UP IN LOCKER WITH HAIR SPRAY TEXTURIZER. ITEMS WRITTEN ON INVENTORY LIST. PATIENT HAS BEEN IN COMPLAINING OF PAIN ALL DAY PER DAY NURSE AND TREATED ORDERED. PATIENT STILL WITH C/O BACK PAIN AND WILL ADD FLEXERIL 5MG TO HIS HS MEDS TONITE PER NEW ORDER GIVEN. PATIENT STATES IT HURTS MORE TO LAY DOWN AND FEELS BETTER TO SIT UP. PATIENT WALKING WITH HIS WALKER BACK AND FORTH TO DAYROOM FOR SNACK AND BACK TO ROOM. NO C/O PAIN WHILE TRYING ON CLOTHES AND HAVING HIS SNACK TONITE. WILL CONTINUE TO MONITOR. TREATING PAIN WITH PRN MEDS DIRECTED. PATIENT LESS IRRITABLE SINCE HE RECIEVED NEW CLOTHES FROM HIS NEPHEW TONITE.
--- NOTE | 2018-12-17 22:21 | NUR ---
PATIENT OUT IN DAYROOM. THIS NURSE PLACED WARM MOIST PACK ON LOWER BACK EARLIER WHEN I GAVE HIS FIRST DOSE OF FLEXERIL. HE IS SITTING UP IN DAYROOM AND SEEMS CONTENT. HE IS NOT COMPLAINING OF PAIN AND STATES HE HAS HAD SOME RELIEF. PATIENT HAS HAD ME AND ANOTHER NURSE IN TRYING TO POSITION HIS BED THE WAY HE LIKES IT BUT UNABLE TO SATISFY. PATIENT HAS BEEN COMPLIANT TONITE AND COOPERATIVE. WILL CONTINUE TO MONITOR.
[2018-12-17 22:43] VITALS: BP 132/76
--- NOTE | 2018-12-18 06:31 | NUR ---
PATIENT SLEPT THRU NIGHT AFTER RECEIVING HYDROCODONE TABLET. HE STILL HAS NOT HAD A BM ON THIS SHIFT SO UNABLE TO COLLECT STOOL SPECIMAN. HIS LAB SHOWS FROM YESTERDAY THAT HIS HGB HAS INCREASED FROM 10 TO 11. PATIENT SLEEPING AT THIS TIME. PATIENT SLEPT 7 HOURS LAST NIGHT.
[2018-12-18 07:45] VITALS: BP 143/93; BP 149/76
--- NOTE | 2018-12-18 09:52 | NUR ---
WITHDRAWN TO ROOM THIS AM DOES REPORT BACK PAIN RATED AN 8 ON 1-10 SCALE. NORCO10/325MG GIVEN PO PRN AT APPROX 0900 FOR ABOVE REPORTED WITH VERBALIZED GOOD RESULTS PAIN RATED NUMERICALLY A 2 APPROX 40 MIN AFTER ADMINISTRATION. USING ROLLER WALKER FOR AMBULATION. MINIMAL INTERACTIOIN WITH STAFF OR PEERS SO FAR THIS AM-REFUING GROUP
--- NOTE | 2018-12-18 13:56 | NUR ---
Date of Admission: 10/25/18 Date of Activity Therapy Assessment:10/28/2018 Activity Goal:One Recreation Therapy group per day. Initial Goal:Pt will participate in a Recreation Therapy group once per day until discharge, to aid in development of social and communication skills and boundaries, to communicate frustration. Weekly progress towards goal: Did not achieve Group participation level: None Behaviors observed: Pt has not attended a single group this week. Pt appears anxious and agitated. Pt is staying in his room, except for meal times. Plan: No change towards goal-offer 1:1 when group is declined.
[2018-12-18 20:29] VITALS: BP 146/88
--- NOTE | 2018-12-19 02:08 | NUR ---
ASSUMED CARE AT APPROXIMATELY 1915, PATIENT WAS IRRITABLE AT THE BEGINNING OF THE SHIFT RELATED TO HIS MEDICATIONS. HE REFUSED TO TAKE HIS SCHEDULED MEDICATIONS UNLESS HE HAD HIS 'PAIN PILLS.' PATIENT DID END UP AGREEING TO TAKE SCHEDULED MEDICATIONS PROVIDING SOON HE COULD RECEIVE HIS PRN PAIN MEDS SOON POSSIBLE, THIS NURSE OBLIGED. HE APPEARS WITH A LABILE MOOD, FLAT AND TRANSITIONING TO A EUTHYMIC AFFECT. LINEAR SPEECH AND GOAL DIRECTED. HE SPENT SEVERAL DISCUSSING WHAT HE WAS GOING TO TALK ABOUT IN HIS GUARDIANSHIP MEETING. HE CURRENTLY DENIES SI HI SH WELL HALLUCINATIONS. HE DENIED MEDICAL CONCERNS (OTHER THAN INCREASINGLY WORSE PAIN) AND DOES NOT APPEAR TO BE IN DISTRESS. NO FACIAL GRIMACING NOTICED WHEN PATIENT IS OUT IN [facility], IT IS ONLY RECOGNIZABLE WHEN PATIENT IS ASKING FOR PAIN MEDICATION. Mary CASTREJON WILL MAINTAIN ALL PRECAUTIONS TO ENSURE SAFETY AT ALL TIMES.
[2018-12-19 07:44] VITALS: BP 142/91
--- NOTE | 2018-12-19 13:28 | NUR ---
SLEPT FOR APPROX 1-11/2 HOUR THIS AM AFTER RECEIVING NORCO10/325 AND FLEXERIL 5MGPO PRN AT APPROX 0800-REPORTING LOW BACK PAIN RATED A 10 OUT OF [place] AND STATES HE HAD "VERY LITTLE" SLEEP A RESULT OF ONGOING BACK PAIN. DOES COME OUT FOR MEALS-REFUSED TO JOIN PEERS FOR SOCIAL ACTIVITY OF WATCHING [employer] GAME AND REFUSED SCHEDULED GROUPS APPETITE IS GOOD-GAIT SLOW BUT STEADY WITH ASSISIT OF ROLLER WALKER-BP MILDLY ELEVATE ON MACHINE THIS AM AT 142/91-RECHECKED MANUALLY AT 1330 AND IS 128/78
[2018-12-19 14:07] VITALS: BP 136/78
[2018-12-19 19:44] VITALS: BP 121/79
--- NOTE | 2018-12-20 02:25 | NUR ---
ASSUMED CARE OF PATIENT AT APPROXIMATELY 1915, HE APPEARED WITH A TENSE AFFECT UPON ONE TO ONE BUT QUICKLY APPEARED RELAXED. HE HAS BEEN OBSERVED BEING SOMEWHAT MORE IRRITABLE WITH STAFF AND OTHER PEERS. HE REPORTS THIS IS BECAUSE HE IS 'THINKING ABOUT WHAT TO SAY IN COURT.' THIS NURSE OFFERED ENCOURAGEMENT. HE IS STILL SLEEPING FEW HOURS IN THE EVENING BUT NO AGGRESSIVE BX HAVE BEEN OBSERVED. HE DENIES SI HI SH WELL HALLUCINATIONS. HE DENIES MEDICAL CONCERNS WITH NO S/S OF DISTRESS. NURSING WILL MAINTAIN ALL PRECAUTIONS TO ENSURE SAFETY AT ALL TIMES.
[2018-12-20 07:34] VITALS: BP 137/88
[2018-12-20 09:15] VITALS: BP 137/88
--- NOTE | 2018-12-20 09:27 | NUR ---
ASSUMED CARE AT 0700 THIS MORNING. HE WAS UP ON THE UNIT FOR BREAKFAST. HE TOOK HIS MEDICATIONS WITHOUT PROBLEMS NOTED. CONTINUES TO C/O LOWER BACK PAIN. HE DID NOT ATTEND MORNING GROUP, BUT WENT TO HIS ROOM INSTEAD. HE IS DENYING SI/HI/AVH THIS MORNING. NO ADVERSE BEHAVIORS NOTED AT THIS TIME.
[2018-12-20 14:59] VITALS: BP 137/88
--- NOTE | 2018-12-20 22:21 | NUR ---
PATIENT UP IN ROOM TONIGHT. HE WANTED PAIN MED FOR HIS LOWER BACK. HE IS ANXIOUS TO GO TO HIS COURT FOR GUARDIANSHIP IN THE MORNING. HE HAS HIS CLOTHES PICKED OUT AND JUST FINISHED A SHOWER. HE DID HAVE NURSE SHAVE THE BACK OF HIS NECK. HE IS FRETTING OVER GETTING THE PROPER PRODUCT TO USE ON HIS HAIR. HE SAID, " I'M GOING TO LOOK LIKE A MODEL FOR [place]." VERY PRECISE ON HOW HE WANTS TO LOOK. CHECKED PATIENT'S Bp AT SHIFT CHANGE AND IT WAS 163/97. I WAITED A SHORT TIME AFTER GIVING HIM PAIN MED AND IT WAS 136/99. RECHECKED IT 30 MINUTES LATER WITH MANUAL CUFF AND IT IS DOWN TO 138/80. PATIENT STATES PAIN IS DOWN AND HE SEEMS MORE RELAXED SINCE SHOWER. WILL CONTINUE TO MONITOR. PATIENT HAS COURT AT 9:30 AM TOMORROW AND WILL BE ACCOMPANIED BY A STAFF MEMBER. PATIENT HAS BEEN IN A GOOD MOOD TONIGHT AND IS EXCITED TO GO TO COURT. HE HAS BEEN PLEASANT AND COOPERATIVE.
--- NOTE | 2018-12-20 22:40 | NUR ---
STOOL CULTURE COLLECTED FOR OCCULT BLOOD AND TAKEN TO THE LAB TONIGHT.
[2018-12-20 22:43] VITALS: BP 140/80
--- NOTE | 2018-12-20 23:22 | NUR ---
STOOD BY ASSIST PATIENT SHAVED AND TRIMMED WEN. PATIENT IS UP WITH WALKER AND HAS PROBLEMS GETTING HIS FEET STARTED AT TIMES WHEN HE WALKS. HE HAS A QUICK UNSTEADY SHUFFLE WHEN HE FIRST STARTS OUT WALKING. PATIENT STATES HE IS GOING TO TRY AND GO TO BED NOW. DENIES PAIN AT THIS TIME.
--- NOTE | 2018-12-21 01:15 | NUR ---
PATIENT UP IN DAYROOM. HE STATES HE'S TOO EXCITED TO ABOUT GOING TO COURT IN THE MORNING THAT HE CAN'T SLEEP. PATIENT HAD HYDROCODONE AT 1339 UP ON REQUEST D/T 12/21 LOWER BACK PAIN. RECHECKED PATIENT'S BP AND IS 144/84. PATIENT SITTING UP IN DAYROOM. TRIED TO ENCOURAGE PATIENT TO TRY AND SLEEP SO HE CAN BE FRESH IN HIS THINKING FOR COURT BUT HE SAYS HE'S TO WOUND UP. HE STATES HE WILL CALM DOWN WHEN HE GETS TO COURT. CONTINUING TO MONITOR.
[2018-12-21 07:50] VITALS: BP 153/90
--- NOTE | 2018-12-21 09:00 | NUR ---
David is going to court this morning; he is beng accompanied by RN, Marcos Mixon. Security was called as David needed his wallet to go to court. Security brought up his wallet
--- NOTE | 2018-12-21 09:21 | NUR ---
PATIENT HAS BEEN PLEASANT AND AGREEABLE. STATED SLEPT VERY LITTLE IN ANTICIPATION OF COURT HEARING TODAY. ASKED STAFF TO PRAY FOR HIM. HAD BREAKFAST AND DRESSED HIMSELF WHEN DIRECTED. TOOK MEDICATIONS BUT REFUSED FLOMAX STATING NOT WANTING TO HAVE TO USE BATHROOM FREQUENTLY. PATIENT DENIED ANY S/I OR H/I - SOMEWHAT ANXIOUS ABOUT COURT TODAY. LOWER BACK PAIN DISCOMFORT AROUND A FIVE - APPLIED LIDOCAINE PATCH THIS MORNING.
--- NOTE | 2018-12-21 11:27 | NUR ---
Nutrition followup: pt having court hearing today. Continues to eat 100% most meals and 100% of Ensure Enlive BID. Recent weights stable, Has showed favorable gain of 14# since admission 10/25. Continue present interventions, remains low nutrition risk.
--- NOTE | 2018-12-21 15:06 | NUR ---
PATIENT HYDROCODONE DC'ED BY DOCTOR - GIVEN TYLENOL 650 MG. TO HELP WITH BACK PAIN.
--- NOTE | 2018-12-21 15:10 | NUR ---
PATIENT WENT TO COURT THIS MORNING. CAME BACK DEPRESSED AND QUIET - GIVEN TYLENOL TO HELP WITH BACK PAIN. QUESTIONED ON HOW IT WENT AND STATED " THEY TOOK ALL MY MONEY FROM MY BACK ACCOUNT". NOT VERY TALKATIVE - APPEARS TO BE UPSET BUT NO AGITATION -
--- NOTE | 2018-12-21 16:30 | NUR ---
Pt went to court concerning guardianship hearing. Pt was assigned a PA and conservatorship. Pt was signed Marty Barry the guardians. SW will follow-up with pt.
--- NOTE | 2018-12-21 21:40 | NUR ---
PT PACING IN [place] AND AT TIMES SITTING IN DAYROOM WATCHING TV AFTER PEERS GO TO BED. PT COMPLIANT WITH HS MEDS, PRN TYLENOL X 1 FOR BACK DISCOMFORT. AMBULATING STEADY SHUFFLE WITH WALKER. PT STATED HE WENT TO COURT TODAY. PT THOMASSILVIAEliezer TALKED WITH SON PAULA AND LEFT VMAIL FOR JOSEF. PT HAD HS SNACK. GOOD EYE CONTACT, SAD AFFECT, VOICE MONOTONE IN CONVERSATION.
[2018-12-22 09:03] VITALS: BP 149/104
--- NOTE | 2018-12-22 15:53 | NUR ---
David was given opportunity to listen to [address] Wasserman for attending court hearing 12/21 and participating in 1430 recreation therapy group 12/22. Patient chose jazz music and thanked staff stating, "music is good for my cognition, thank you!"
--- NOTE | 2018-12-22 17:28 | NUR ---
DYSPHORIC MOOD THIS AM-REFUSING TO COME OUT OF ROOMFOR BREAKFAST WITH REPORTS OF SEVERE BACK PAINAND POOR SLEEP. TYLENOL 650MG GIVEN PO PRN AT 0830 FOR BACK PAIN ALONG WITH LIDODERM PATCH AND VOLTERAN GEL. DID REST FOR APPROX 45 MINUTES AND CAME OUT FOR LUNCH WITHOUT PROMPTING. BP 149/104 THIS AM-MD NOTIFIED OF ABOVE AND CLONIDINE 0.1 MG GIVEN PO PRN AT APPROX. 0930. BP RECHECK AT APPROX. 1130-BP 128/74. REFUSED GROUPS. USING ROLLER WALKER FOR AMBULATION.
[2018-12-22 18:57] VITALS: BP 134/80
--- NOTE | 2018-12-22 20:59 | NUR ---
pt resting in bed upon arrival to shift. pt awakened and asked for hs meds, and provided. pt rested until 2100 then awakened and asked for decaf coffee. pt stated he had a good day and was able to listen to music, he discussed how his son is having a hard time with pt having to go to court yesterday. pt has good eye contact, smiling, gait shuffle with walker. pt talking cheerfully with staff and laughing.
--- NOTE | 2018-12-22 22:59 | NUR ---
PT AWAKE SMILING TALKING TO SELF LAUGHING WHILE LISTENING TO JAZZ.
[2018-12-23 09:42] VITALS: BP 138/86
--- NOTE | 2018-12-23 10:06 | NUR ---
SW sent a referral to [facility] per the [facility] Attendant request. MARIANN will follow-up with [facility] to see if pt will be accepted [facility].
--- NOTE | 2018-12-23 15:22 | NUR ---
PATIENT HAS BEEN UP AND OUT ON THE UNIT FOR A SHORT PERIOD OF TIME. PATIENT PARTICIPATING IN GROUP THERAPY. TOOK INTERMITTENT NAPS. PATIENT IS EATING MEALS AND DRINKING FLUID WELL. PATIENT TOOK ALL MEDICATION WHOLE WITHOUT DIFFICULTY. PATIENT DENIES SUICIDAL AND HOMICIDAL IDEATION. HE DENIES ANXIETY. " I AM DEPRESSED BECAUSE I AM HERE. I NEED TO GO'. PATIENT CAN BE IRRITABLE WHEN HE DOES NOT GET HIS WAY IMMEDIATELY. NO SIGN OF ACUTE DISTRESS NOTED AT THIS TIME, WILL MONITOR FOR SAFETY.
--- NOTE | 2018-12-23 17:02 | NUR ---
MARIANN sent a referral to [facility]. Leah from [facility] will evaluate pt on tomorrow, December 24, 2018.
[2018-12-23 19:34] VITALS: BP 154/93
--- NOTE | 2018-12-23 21:32 | NUR ---
PATIENT UP IN DAYROOM TONIGHT WHEN i CAME IN. HIS BP WAS 154/93. HE STATES HIS BACK PAIN IS BOTHERING HIM. ACETAMINOPHEN 650 GIVEN WITH HIS NIGHT MEDS AND ALSO CYCLOBENZAPRINE. CHECKED BP AN HOUR AFTER GETTING THE MEDS AND PATIENT LAYING DOWN TO RELAX. BP NOW IS 152/72. PAIN IS PRESENT IN BACK BUT DECREASED. PATIENT STATES UNABLE TO SLEEP. PRN MELATONIN GIVEN WITH HS MEDS TO HOPEFULLY HELP TO PROMOTE SLEEP. PATIENT IS ANXIOUS BUT EAGER TO LEAVE TOMORROW FOR NEW PLACEMENT AT [facility]. HE SMILES AND STATES, "i'M GOING TO BE FINE. I WILL DO GREAT! " OFFERED TO LISTEN TO PATIENT IF HE NEEDS TO TALK. HE SAYS TONIGHT THAT HE IS GOING TO TRY TO SLEEP AND DREAM OF "ALL THE LADIES HE'S GOING TO MEET," AT THE NEW PLACE. PATIENT IS CALM AND COOPERATIVE TONIGHT. PATIENT LAYING IN BED RESTING WITH LIGHTS ON. DOES NOT WANT TO TURN OFF LIGHTS. WILL CONTINUE TO MONITOR.
[2018-12-23 21:53] VITALS: BP 152/72
[2018-12-23 21:56] VITALS: BP 152/72
--- NOTE | 2018-12-24 04:13 | NUR ---
PATIENT HAS BEEN UP ALL NIGHT UNABLE TO SLEEP. STATES HIS BACK HURTS MORE WHEN HE LAYS DOWN FOR LONG PERIODS OF TIME. REQUESTED PAIN MED AT 0220 AND WAS GIVEN ACETAMINOPHEN 650MG. PATIENT HAS BEEN UP SINCE THEN IN THE DAYROOM TALKING TO STAFF AND LAUGHING AND CARRYING ON. HE JUST NOW WENT BACK TO BED. WILL CONTINUE TO MONITOR.
[2018-12-24 08:00] VITALS: BP 139/90
--- NOTE | 2018-12-24 13:32 | NUR ---
PT. GIVEN HIS BANK CARD SO HE COULD CALL AND GET A BALANCE. HE CAME OUT OF HIS ROOM AND WENT TO GROUP BEFORE CALLING TO THE BANK.
--- NOTE | 2018-12-24 14:03 | NUR ---
BECAME LOUD-SWEARING AT SOCIAL WORK REGARDING DC PLANNING. PRIOR TO INCIDENT HAD BEEN PLEASANT STATING HE WAS GOING TO GET DISCHARGED TODAY. DID ATTEND AM GROUP AND PARTICIPATED-EATING WELL. GAIT STEADY WITH USE OF ROLLER WALKER. COMPLIENT WITH AM MEDICATIONS. DOES CONTINUE TO REPORT BACK PAIN BUT NOT FREQUENTLY PREVIOUS SHIFT. REQUESTED AND RECEIVED TYLENOL 650MG PO PRN AT 0900 FOR BACK PAIN RATED A 5 ON 1-10 SCALE.
--- NOTE | 2018-12-24 15:18 | NUR ---
Pt was assessed by Leah from [facility], and accepted into [facility]. Pt will d/c on December 27, 2018. SW will schedule transport on Thursday.
[2018-12-24 16:05] LABS: % SATURATION 24 % (20-39); IRON 66 ug/dL (65-175); TIBC 270 ug/dL (250-450)
[2018-12-24 17:15] VITALS: BP 150/101
[2018-12-24 18:54] VITALS: BP 169/114
--- NOTE | 2018-12-24 20:03 | NUR ---
THE PT'S BLOOD PRESSURE WAS 162/116, CALLED THE NURSE PRACTIONER WHO WAS REDUCTION FURNACE OPERATOR HELPER, HE RECEIVED HIS MEDICATIONS, WHICH INCLUDED HIS CLONIDINE.
--- NOTE | 2018-12-24 20:33 | NUR ---
ASSUMED CARE OF THE PT AT 191 PM. ALERT ET ORIENTED X 3. MAKES NEEDS KNOWN, WALKS WITH A WALKER, TOOK HIS HS MEDICATIONS WITHOUT ANY DIFFICULTY. HEART RATE REGULAR, LUNGS CLEAR BILATERALLY, RESP., EVEN, AND UNLABORED. +BS HEARD IN ALL 4 QUADRANTS. ABD SOFT ET NONTENDOR.
[2018-12-24 22:01] VITALS: BP 140/70
[2018-12-25 07:15] VITALS: BP 134/78
--- NOTE | 2018-12-25 10:06 | NUR ---
ALERT AND ORIENTED TODAY, HE IS IRRITABLE STATING "I NEED MY PAIN MEDICINE", GIVEN TYLENOL HYDROCODONE WAS DISCONTINUED, HE WAS OK WITH THE TYLENOL, WE WENT TO HIS ROOM AND APPLIED HIS LIDODERM PATCH AND GEL, HE STATED SOME OF THE STAFF HAS BEEN GOOD TO HIM AND SOME NOT. HE IS DISHEVELED IN APPEARENCE, COOPERATIVE WITH MEALS AND MEDS. DID ATTEND GROUP, CURRENTLY LISTENING TO MUSIC IN HIS ROOM. CONTINUE TO MONITOR FOR BEHAVIORS AND SAFETY.
--- NOTE | 2018-12-25 12:44 | NUR ---
Date of Admission: 10/25/18 Date of Activity Therapy Assessment: 10/28/2018 Activity Goal:1 group per day Initial Goal:Patient will participate in one recreation therapy group per day until discharge to aid in the development of social and communciation skills and boundaries to communicate frustration. Weekly progress towards goal: did not achieve Group participation level: increasing Behaviors observed:Pt participation level increased towards in the week, possibly due to DC next week. When attending group, pt has a bright affect, is cheerful with staff and peers and engages in positve social conversations. Plan: No change towards goal
[2018-12-25 19:18] VITALS: BP 142/85
--- NOTE | 2018-12-26 00:50 | NUR ---
THIS NURSE ASSUMED CARE AT APPROXIMATELY 1915. PATIENT IS CALM AND COOPERATIVE THROUGHOUT THE EVENING. HE APPEARS WITH A BRIGHT AFFECT, EAGER TO COMPLETE ADLS SUCH DOING HIS HAIR AND SHAVING. THIS NURSE ASSISTED PATIENT WITH SHAVING AT 0030. PATIENT IS CURRENTLY ON THE MATTRESS IN HIS ROOM. HE REPORTS TO THIS NURSE 'ITS MORE COMFORTABLE TO LAY ON THE GROUND.' PATIENT MADE MINIMAL COMPLAINTS ABOUT PAIN, PATIENT IS NOT IRRITABLE WITH STAFF OR OTHER PATIENTS. HE HAS BEEN OBSERVED ENGAGING IN OTHER CONVERSATIONS. HE DENIES SI HI AND DENIES ANY AGGRESSIVE OR ASSAULTIVE FEELINGS. HE DENIES MEDICAL CONCERNS AT TIME OF REASSESSMENT AND DOES NOT APPEAR TO BE IN DISTRESS. NURSING WILL MAINTAIN ALL PRECAUTIONS TO ENSURE SAFETY AT ALL TIMES.
--- NOTE | 2018-12-26 09:44 | NUR ---
MAYURI NICKERSON ORIENTED X 3, HE IS IN A GOOD MOOD THIS MORNING, HE IS CALM AND COOPERATIVE WITH CARE, ATE AND TOOK MEDS WITHOUT ISSUES, HE DID RECEIVE HIS B/P MEDICATIONS EARLY DUE TO AN ELEVATION, HE DID COME DOWN REPORTED BY THE SCORER SINGLE APPROX. 1 HOUR LATER, HE IS ATTENDING GROUPS SO FAR THIS A.M. STATED HE DOESN'T WANT TO LOSE HIS "MUSIC TIME", HE DIENIES SI/HI AND AVH, LOOKS FORWARD TO DISCHARGE TOMORROW. HE IS CLEAN AND NEAT TODAY, UNLIKE YESTERDAY WHEN HE WAS VERY DISHEVELED. CONTINUE TO MONITOR FOR BEHAVIORS AND SAFETY.
[2018-12-26 19:25] VITALS: BP 127/70
--- NOTE | 2018-12-26 22:09 | NUR ---
THIS NURSE ASSUMED CARE AT 1915. PATIENT HAS BEEN CALM AND COOPERATIVE WITH ALL STAFF AND PEERS. HE APPEARS WITH A EUTHYMIC AFFECT UPON ONE TO ONE. 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 HE HAS BEEN REMORSEFUL AND NOSTALGIC ABOUT HIS TIME AT [facility]. HE DENIES SI HI SH WELL HALLUCINATIONS. STAFF AND PATIENT DO REPORT THAT HE ATTENDED ALL GROUPS AND IS ABLE TO LISTEN TO JAZZ THIS EVENING. HE DENIES MEDICAL CONCERNS WITH NO S/S OF DISTRESS. NURSING WILL MAINTAIN ALL PRECAUTIONS TO ENSURE SAFETY AT ALL TIMES.
[2018-12-27 07:00] VITALS: BP 147/94
[2018-12-27 07:15] VITALS: BP 147/94
[2018-12-27 07:16] VITALS: BP 147/94
--- NOTE | 2018-12-27 08:46 | NUR ---
ADM TYLENOL 650MG PO FOR PAIN TO BACK OF 10 ON 1-10 SCALE TO LOWER BACK.
--- NOTE | 2018-12-27 08:47 | NUR ---
PT UP THIS AM AND DRESSED. PT EXCITED ABOUT GOING TO [place] TODAY. PT STATED BACK PAIN OF 10 ON 1-10 SCALE. PT COMPLIANT WITH MEDICATION.
--- NOTE | 2018-12-27 13:42 | NUR ---
PT NOT ABLE TO LEAVE TODAY. PT STATED HE IS HURTING REALLY BAD, CAME TO DESK AND ASKED DR. MORENO ABOUT HIS PAIN. DEFERED TO NURSE TO TALK TO HOSPITALIST. PT STATED HE IS GOING TO GO BACK TO ROOM AND SAYING [facility] ALL THE WAY TO HIS ROOM. WALKING WITH SHUFFLED GAIT WITH WALKER.
--- NOTE | 2018-12-27 14:20 | NUR ---
ADM TYLENOL 325MG 2 TABS PO FOR PAIN TO BACK OF 10 ON 1-10 SCALE.
--- NOTE | 2018-12-27 16:42 | NUR ---
Pt is accepted into [facility]. [place] [facility] [place]
[2018-12-27 17:31] VITALS: BP 125/90
--- NOTE | 2018-12-27 18:19 | NUR ---
PT COMING UP TO DESK AND ASKING ABOUT PAIN MEDICATION. NOT DUE TILL 2019.
[2018-12-28] VITALS (7 sets, daily range): BP systolic 125–160; BP diastolic 88–100
--- NOTE | 2018-12-28 03:28 | NUR ---
PT RESTLESS THIS EVENING. A LITTLE UPSET WITH CONFUSION TO HIS IMPENDING DISCHARGE. UNSURE TO WHEN BUT HAD TROUBLE GETTING SETTLED TONIGHT. AFTER SNACKS WENT TO BED BUT HAD TROUBLE SLEEPING. SAT UP IN DAY ROOM AFTER HS MEDS, WHICH HE TOOK W/O PROBLEM. STILL C/O BACK PAIN, AND RECEIVED TYLENOL, WITH LITTLE RELIEF. UP IN DAY ROOM UNTIL 0230, GAVE HIM MORE TYLENOL AND HE FINALLY GOT TO SLEEP.
--- NOTE | 2018-12-28 09:30 | NUR ---
BP THIS AM 160/96-AM COREG AND CLONIDINE GIVEN AT APPROX 0830-DR. HANKS CONTACTED AND INFORMED OF ABOVE. PT IS REPORTING PAIN IN LOW BACK RATED 9/10. TYLENOL 650MG GIVEN PO PRN
--- NOTE | 2018-12-28 11:04 | NUR ---
Nutrition followup: pt continues on [facility] unit eating 100% of meals, 100% of ensure supplements. Voices he is not getting the ensure anymore however it is ordered and recorded BID. Weight gain of 12# since admission 2 months ago. On vitamin. Low risk, follow weekly.
--- NOTE | 2018-12-28 11:13 | NUR ---
BP RECHECK AT 1045-146/100-DENIES MHEADACHE OR VISUAL DISTURBANCE BUT STATES "I CAN'T REST AT ALL MY BACK IS HURTING SO BAD" DR. HYDE AND DR. HANKS CONTACTED REEEGARDING ABOVE-ORDERS RECEIVED AND NORCO 5/325 GIVEN PO PRN-WILL CONTINUE TO MOITOR BP AND PAIN LEVEL.
--- NOTE | 2018-12-28 17:43 | NUR ---
DOES REPORT IMPROVED PAIN LEVEL THIS PM-OUT OF ROOM TO EAT AND VISITED BRIEFLY WITH PEERS BEFORE RETURNING TO BED. BP RECHECK X 2 146/88 AND AT 1730 140/84. INITALLY TRIED TO REFUSE PM COREG STATING "MY BP 9IS NOT HIGH BUT DID DO SO WITH MUCH PROMPTING.
--- NOTE | 2018-12-28 19:53 | NUR ---
ASSUMED CARE OF PT @ 19:15. PT ASKING FOR TELEPHONE PRIVILEDGES. AGREED TO WAIT UNTIL AFTER SHIFT CHANGE TO TALK ON THE PHONE.
--- NOTE | 2018-12-28 22:00 | NUR ---
VOLTARIN GEL APPLIED TO LOWER BACK, LIDOCAIN PAIN PATCH REMOVED, TOOK MEDS WHOLE WITH WATER. TOOK TYLENOL 650, ASKED ABOUT NARCOTIC PAIN MEDS, INFORMED THAT HE WILL BE ABLE TO TAKE THEM Q 6 HOURS, AT APROXIMATELY 2300. PATIENT REQUESTED SHOWER SUPPLIES WHICH WERE PROVIDED FOR HIM. WILL CONTINUE TO MONITOR Q 12 MINUTES FOR PATIENT SAFETY.
--- NOTE | 2018-12-29 06:01 | NUR ---
slept 6.4 hours overnight
[2018-12-29 09:29] VITALS: BP 112/66
--- NOTE | 2018-12-29 11:13 | NUR ---
HAS BEEN WITHDRAWN TO ROOM MOST OF AM-STATES HE DID NOT SLEEP WELL LAST PM AND IS "CATCHING UP" PT REFUSED AM VS INITALLY BUT DID EVENTUALLY ALLOW THIS URSE TO TAKE THEM BP 112/66-PULSE 78. DOES REPORT LOW BACK PAIN RATED A 9 ON 1-10 SCALE. REQUESTED AND RECEIVED NORCO5/325MG PO PRN AT APPROX 0900-LIDODERM PATCH APPLIED PER MD ORDER
[2018-12-29 12:19] VITALS: BP 112/66
--- NOTE | 2018-12-29 17:54 | NUR ---
ATE DINNER IN DINNING ROOM WITH GOOD APPETITE. TYLENOL GIVEN FOR BACK PAIN. PLEASANT AND COOPERATIVE. AMBULATES WITH SLOW STEADY GAIT USING ROLLER WALKER.
[2018-12-29 19:25] VITALS: BP 131/73
[2018-12-29 23:07] VITALS: BP 131/73
--- NOTE | 2018-12-30 04:38 | NUR ---
PATIENT HAS BEEN WANTING PAIN MEDS WHENEVER AVAILABLE TONITE. THIS NURSE DID RUB HIS BACK DOWN WITH MUSCLE RUB AND VOTAREN GEL. CYCLOBENZAPRINE GIVEN AROUND 1999. PATIENT GIVEN HYDROCODONE AND TYLENOL PRN ORDERED. PATIENT TRYING TO MANIPULATE TO GET COFFEE AND WATCH TV STATING THAT IT HELPS HIS BACK PAIN TO CALM DOWN. TOLD HIM NO AND THAT HE NEEDED TO GO BACK TO BED. HE DID GO BACK TO BED AND CAME OUT WHEN TIME FOR HIS TYLENOL. HE DID NOT YELL OR ACT OUT WHEN TOLD NO TO HIS REQUESTS. PATIENT SLEEPING AT THIS TIME.
[2018-12-30 08:32] VITALS: BP 146/86
--- NOTE | 2018-12-30 09:36 | NUR ---
SW recieved a phone call from Sydney Suarez from [facility] that she will be here on Monday, December 31, 2018 to complete the Level II Screening at 1300.
--- NOTE | 2018-12-30 10:38 | NUR ---
0700: Report rec from noc shift, care assumed. 0730: Ambulatory with walker in room and to DR, gait with shuffle, alert, oriented to name, place and time of day, cooperative, demanding to staff regarding medications, coffee and food. Feeds self, appetite good, takes meds whole w/o difficulty. Attended 0900 therapy group with participation noted.
[2018-12-30 20:06] VITALS: BP 139/59
--- NOTE | 2018-12-31 03:53 | NUR ---
ASSUMED CARE OF PATIENT AT APPROXIMATELY 1915, HE IS CALM AND COOPERATIVE, ALERT AND ORIENTED X4. HE IS OBSERVED IN HIS ROOM ISOLATING TO HIMSELF WITH MINIMAL INTERACTION WITH OTHER PATIENTS. HE HAS REQUESTED PAIN MEDICATION MULTIPLE TIMES, NO FACIAL GRIMACING OR OTHER SIGNS OF PAIN/OR DISTRESS OBSERVED. HE DENIES SI HI AND HAS DISPLAYED NO AGGRESSIVE BX. HE IS DISCHARGED FOCUSED. HE DENIED ALL OTHER MEDICAL CONCERNS WITH NO S/S OF DISTRESS. NURSING WILL MAINTAIN Q12 CHECKS TO ENSURE SAFETY AT ALL TIMES.
--- NOTE | 2018-12-31 08:42 | NUR ---
0700: Report rec from noc shift, care assumed. 0730: Ambulatory with walker in room and to DR, shuffle gait noted, sitting in DR for a.m. meal, oriented to name, place and time. Feeds self, takes meds whole w/o difficulty. Compliant with tx plan, cont. to take Hydrocodone for chronic back pain, Lidocaine patch applied to lower mid back with a.m. meals.
[2018-12-31 08:49] VITALS: BP 155/90
--- NOTE | 2018-12-31 14:06 | NUR ---
MARIANN provided [employer] associate with medical reports and she met with pt for his Level 2 screening for COMRU. She stated that he qualifies and would submit the report via emial in 4 business days to weekday MARIANN email.
--- NOTE | 2018-12-31 14:36 | NUR ---
RAKESH spoke with Marty Pritchett [phone] and reported that pt is able to buy his clothes with his own money if he chooses to. Pt will pay payne with the money that he has in the safe in the hospital, and rakesh confirmed this with Aguila Motley from [facility] [phone] and he will bring the suit to the unit to fit this pt. Reported this to nursing
[2018-12-31 18:08] VITALS: BP 168/78
[2018-12-31 21:48] VITALS: BP 133/81
--- NOTE | 2018-12-31 22:47 | NUR ---
ASSUMED CARE OF THE PT AT 191 PM. ALERT ET ORIENTED X 3. MAKES NEEDS KNOWN. HEART RATE REGULAR. LUNGS CLEAR BILATERALLY, RESP., EVEN, AND UNLABORED. +BS HEARD IN ALL 4 QUADRANTS. ABD SOFT ET NONTENDOR. +PP BILATERALLY. C/O ABOUT PAIN TO HIS BACK, APPLIED CREAM TO HIS BACK. DENIES ANXIETY AND DEPRESSION, SI/HI/A/V HALLUNICATIONS. REMAINS ON 12 MINUTE CHECKS FOR THE PT'S SAFETY.
[2019-01-01 07:00] VITALS: BP 137/79
--- NOTE | 2019-01-01 11:04 | NUR ---
REQUESTED AND RECEIVED NORCO 5/325MG PO PRN AT 0845 FOR REPORTED LOW BACK PAIN RATED A 9 ON 1/10 SCALE. UP AND VISIBLE IN DAYROOM FOR SHORT INTERVALS THIS AM- DID NOT ATTEND AM RT GROUP DESPITE PROMPTS. PREOCCUPIED WITH TRYIN ON A SUIT THAT HE ORDERED AND RECEIVED YESTERDAY. REFUSED AM PROSCAR AND FLOMAX STATING THEY MAKE ME PEE TOO MUCH
[2019-01-01 19:28] VITALS: BP 133/80
--- NOTE | 2019-01-01 21:44 | NUR ---
THIS NURSE ASSUMED CARE AT 1915, DURING ONE TO ONE WITH PATIENT, HE APPEARS WITH A DISHEVELED APPEARANCE, LAYING IN BED WITH EYES CLOSED THAT SPONTANEOUSLY OPEN TO THIS NURSES VOICE. HE ASKED POLITELY 'HOW I WAS DOING.' HE REPORTS HE WAS SLEEPING EXCESSIVELY TODAY...
[2019-01-02 07:30] VITALS: BP 146/93
--- NOTE | 2019-01-02 08:30 | NUR ---
PT FINISHES BREAKFAST AND GOES BACK TO ROOM. PT UP WITH WALKER WITH SHUFFLE GAIT. PT HAS RA TO HANDS AND NEEDS ASSISTANCE WITH CUTTING FOOD, AND OPENING CONTAINERS.
--- NOTE | 2019-01-02 09:20 | NUR ---
PT TOOK AM MEDS. REFUSED PROSCAR DUE TO STATING HE IS VOIDING FINE. ALSO PT WANTED HYDROCODONE FOR PAIN. ADM HYDROCODONE 5MG PO FOR PAIN TO BACK OF 10 ON 1-10 SCALE. PT LAID BACK DOWN.
[2019-01-02 09:45] VITALS: BP 146/93
--- NOTE | 2019-01-02 12:00 | NUR ---
PT REFUSED TO COME OUT DUE TO PAIN. PT ASKING FOR PAIN MED AT 1140. GOT HYDROCODONE THIS AM.
--- NOTE | 2019-01-02 13:36 | NUR ---
ADM IBUPROPHEN 600MG PO FOR PAIN TO BACK OF 10 ON 1-10 SCALE.
--- NOTE | 2019-01-02 13:45 | NUR ---
PT COMPLAINED OF SOB. DR. MORENO HERE TO SEE HIM. VS TAKEN. PT DIDN'T APPEAR IN ANY DISTRESS.
[2019-01-02 13:48] VITALS: BP 147/95
[2019-01-02 13:53] VITALS: BP 147/95
[2019-01-02 17:00] VITALS: BP 101/69
--- NOTE | 2019-01-02 17:04 | NUR ---
ADM HYDROCODONE 5MG PO FOR PAIN TO BACK OF 10 ON 1-10 SCALE.
--- NOTE | 2019-01-02 18:27 | NUR ---
PT NOT GOING TO GROUPS TODAY. PT STATED HE HAS TOO MUCH PAIN. IBUPROPHEN HELPED EARLIER.
--- NOTE | 2019-01-02 21:26 | NUR ---
KATYA IS ALERT AND ORIENTED X4, HE HAS BEEN CALM AND COOPERATIVE AND INTERACTING APPROPRIATELY WITH OTHER PEERS. HE DOES EXPRESS FACIAL GRIMACING AT TIMES AND PATIENT HAS COMPLAINED OF PAIN SEVERAL TIMES. THIS NURSE ADMINISTERED PRN PAIN MEDICATION TO PALMA OFF EXTREME PAIN IN THE EVENING, ALTHOUGH THIS DID NOT AFFECT OUTCOMES. HE ALSO STATE TO THIS NURSE 'WHAT DID YOU GIVE ME I FEEL ALL FUNNY' THIS NURSE EXPLAINED MEDICATION REGIMEN S/E BENEFITS AND RISKS WITH PATIENT. HE DID REPORT HIS MOOD 'GOOD' TODAY AND IS AIMING FOR DISCHARGE SOON. HE DENIES SI HI WELL HALLUCINATIONS. UPON OBSERVATION AT THIS TIME HE IS THE RAY ROOM YAWNING, APPEARING TO BE COMFORTABLE, NO S/S OF DISTRESS. NURSING WILL MAINTAIN ALL PRECAUTIONS TO ENSURE SAFETY AT ALL TIMES.
--- NOTE | 2019-01-02 23:11 | NUR ---
PATIENT COMPLAINED ABOUT PERSISTENT BACK PAIN AND BEING UNABLE TO SLEEP. HYDROCODONE GIVEN ORDERED WELL MELATONIN. WILL CONTINUE TO MONITOR.
--- NOTE | 2019-01-03 06:42 | NUR ---
PATIENT CAME OUT OF ROOM AT APPROXIMATELY 0440, C/O GENERALIZED CHEST PAIN RADIATING TO HIS STOMACH AND BACK. PATIENT FIRST REPORTED THAT HE WAS THIRSTY, THIS NURSE PROVIDED WATER. HE C/O SOA AND SP02 READ 100% ON ROOM AIR. PATIENT APPEARED TO BE HYPERVENTILATING, PERFUSSION WAS GOOD, CAPILLARY REFILL <2 SECONDS, VSS AT 22RR, 87P, 152/98 (MANUALLY TAKEN). NO DIAPHORESIS NOTED, PATIENT ALERT AND ORIENTED X4. ANASTACIA FINCH NP NOTIFIED AT 0552 WITH ORDERS FOR STAT EKG, AND AM BLOOD PRESSURE MEDS GIVEN. PER [facility] RAPID RESPONSE TEAM (CENSUS TAKER GRISELDA GUZMÁN) WAS NOTIFIED, EKG OBTAINED AND SENT TO ANASTACIA FINCH WITH NO FURTHER ORDERS. BP MEDS GIVEN EARLY ORDERED. PATIENT IS SMILING AND CHEERFUL AND DOES NOT APPEAR TO BE IN DISTRESS.
[2019-01-03 07:47] VITALS: BP 148/84
--- NOTE | 2019-01-03 08:46 | EKG ---
[place] [address] [address] [facility] [place] [address] ELECTROCARDIOGRAM REPORT Name: KATYA SHAW Room #: 517-A ADM IN M.R.#: [id number] Admission: 10/25/18 Attend Phys: Michael Wasserman DO Discharge: Date of : 40 Report #: [id number] THIS REPORT FOR: //name// [facility] Test Date: 2019-01-03 Test Time: 06:08:20 Pat Name: KATYA SHAW Department: Room: 517 A Gender: M Continuous Wave Operator: bhavik : 1940 Requested By: Magalie Cabello Order Number: [id number] MD: Willis Mcdonnell Measurements Intervals [place] Rate: 71 P: 63 CO: 196 QRS: -37 QRSD: 85 T: 47 QT: 375 QTc: 408 Interpretive Statements Sinus rhythm Inferior infarct, old Rule out septal infarct, age indeterminate Compared to ECG 11/29/2018 10:31:46 Inferior Q waves are now present Electronically Signed On 01-03-2019 8:46:36 CDT by Willis Mcdonnell [email or web address] <ELECTRONICALLY SIGNED> By: Willis Mcdonnell MD, [facility] 01/03/19 [phone] Willis Mcdonnell MD, [facility] /EPI
[2019-01-03 09:28] VITALS: BP 148/84
--- NOTE | 2019-01-03 09:38 | NUR ---
ASSUMED CARE AT 0700 TODAY. PT. UP ON THE UNIT AWAITING BREAKFAST. HE ASKED FOR HIS HYDROCODONE AND RECEIVED IT. HE ASKS FOR MEDICATION AND THEN LEAVES THE AREA, AWAITING THE NURSE TO "BRING IT TO HIM". HE THEN REFUSED HIS DICLOFENAC, LIDOCAINE PATCH, AND FLUPHENAZINE HCL 15 AND THE 2.5 THIS MORNING. HE RETURNED TO HIS ROOM AND INTO BED AFTER BREAKFAST. LUNG CTA, DENIES BACK PAIN AT THIS TIME. HE STATED HE KNEW HE IS TO LEAVE TODAY.
--- NOTE | 2019-01-03 11:45 | NUR ---
Tayler at [facility] called to check the status of patient. Told her that they had been here [facility] to do a level II and we have not yet recieved the paperwork. [facility] still wanting to accept. Said we would call to make arrangements as soon as we hear from the state with the level II paperwork
[2019-01-03 20:12] VITALS: BP 111/69
--- NOTE | 2019-01-03 23:16 | NUR ---
ACCEPTED CARE AT 1915, PATIENT IS ALERT AND ORIENTED X4, HE HAS BEEN CALM AND COOPERATIVE, INTERACTING WITH STAFF APPROPRIATELY, BUT STILL FIXED UPON WHEN HE CAN GET HIS MEDICATIONS AND PAIN MEDICATIONS. HE IS SELECTIVE AT TIMES WHICH MEDICATION HE TAKES, WITH LENGTHY EXPLANATIONS OF THE BENEFITS PT WILL TAKE HIS MEDICATIONS ORDERED. HE CURRENTLY IS FIXATED ON ONE STAFF MEMBER AND IS COMPLETING ADLS TO 'IMPRESS' HER. HE DENIES SI HI AND HALLUCINATIONS. HE DENIES FEELINGS OF DEPRESSION. HE DENIES ANXIETY BUT THIS RN HAS NOTICED WHEN DISCUSSING WITH PATIENT REGARDING DISCHARGE HE BEGANS TO HAVE SOMATIC COMPLAINTS WHICH THIS NURSE ADDRESSES NEEDED AND REASSURES NEEDED. HE DOES NOT APPEAR TO BE IN DISTRESS, NURSING WILL MAINTAIN ALL PRECAUTIONS TO ENSURE SAFETY AT ALL TIMES.
--- NOTE | 2019-01-04 09:40 | NUR ---
Nutrition followup: Pt continues to eat very well, 100% of meals and 100% of Ensure supplements. No weight since 12/25 but prior weights stable > 1 month within 150-154# range representing a favorable 12# increase since admit > 2 months ago. Continues on vitamin. Working toward D/C. Low risk.
[2019-01-04 09:43] VITALS: BP 171/96
--- NOTE | 2019-01-04 10:31 | NUR ---
PATIENT POSITIVE AND HAPPY HE IS DISCHARGING TO [facility]. DRESSED AND PLEASANT. HAD BREAKFAST AND ATE WELL. DENIED ANY S/I - DEPRESSION AND ANXIETY LOW WITH PROSPECT OF LEAVING - PATIENT MEDICATION COMPLIANT. QUESTIONS SOME OF HIS MEDICATIONS AND REFUSES TO TAKE WHOLE AMOUNTS BUT COMPLIANT WITH ENCOURAGEMENT AND EXPLANATION OF DRUGS. PATIENT STATED PLEASED TO BE LEAVING AND PROSPECT OF NEW BEGINNING. DRESSED AND READY TO GO.
[2019-01-04] MEDS ORDERED: FLOMAX0.4 MG PO (12:13)
[2019-01-04] MEDS ORDERED: CARVEDILOL25 MG PO (12:13)
[2019-01-04] MEDS ORDERED: NORVASC5 MG PO (12:14)
[2019-01-04] MEDS ORDERED: VOLTAREN GEL 1100 G1 TOP (12:14)
[2019-01-04] MEDS ORDERED: HYDROCODON-ACE1 EAC7 PO (12:15)
[2019-01-04] MEDS ORDERED: IBUPROFEN 200200 M1 PO (12:15)
[2019-01-04] MEDS ORDERED: FLUPHENAZINE HC10 MG PO (12:17)
[2019-01-04] MEDS ORDERED: FLUPHENAZINE H2.5 MG PO (12:18)
[2019-01-04] MEDS ORDERED: FINASTERIDE5 MG PO (12:19)
[2019-01-04] MEDS ORDERED: PRENATAL PO (12:19)
--- NOTE | 2019-01-04 19:06 | NUR ---
PATIENT DISCHARGED AT 1545 TO [facility]. TRANSPORT PICKED PATIENT UP. ALL BELONGINGS LOGGED OUT AND MONEY FROM [employer] WITH [employer] WAS GIVEN TO PATIENT AND APPROVED. PATIENT CHEERFUL AND MOOD UPBEAT. PATIENT ESCORTED DOWN WITH STAFF MEMBER. WAS NOT ABLE TO ADMINISTER 1700 COREG SCHEDULED PRIOR TO DISCHARGE. ALL PAPERWORK FAXED TO FACILITY. PATIENT LEFT WITH PRESCRIPTIONS WRITTEN BY DR. HYDE.
== END 2019-01-04 19:09 | DRG 885 ==
LOC: ER 09:51 → SBH 14:26 → EROBS 14:26 → SBH 15:05
PROVIDERS: Emergency Medicine; Hospitalist; Internal Medicine; Internal Medicine Geriatric Medicine; ADMIT Psychiatry & Neurology Psychiatry
DX: F20.9 Schizophrenia, unspecified (principal); F02.81 Dementia in other diseases classified elsewhere, unspecified severity, with behavioral disturbance; F01.50 Vascular dementia, unspecified severity, without behavioral disturbance, psychotic disturbance, mood disturbance, and anxiety; G89.29 Other chronic pain; D64.9 Anemia, unspecified; G20 Parkinson's disease; I10 Essential (primary) hypertension; E78.5 Hyperlipidemia, unspecified; N40.0 Benign prostatic hyperplasia without lower urinary tract symptoms; M54.9 Dorsalgia, unspecified; M06.9 Rheumatoid arthritis, unspecified; Z91.14 Patient's other noncompliance with medication regimen; Z79.899 Other long term (current) drug therapy; Z88.0 Allergy status to penicillin
CPT/HCPCS: 10880